=== PATIENT | female | born 1945 | race Caucasian/White ===

== ENCOUNTER 2018-10-18 19:51 | Inpatient (IN) | payer MEDICARE, OTHER, SELFPAY ==
[2018-10-17 11:35] VITALS: BMI 25.4
[2018-10-18] VITALS (7 sets, daily range): BP systolic 144–162; BP diastolic 74–97; PULSE 79–110; RESP 16–21; TEMP 36.4–37.1; O2SAT 97–99; BMI 25.0; BMI 24.9
--- NOTE | 2018-10-18 20:19 | EKG12_ITS ---
Test Reason : CELLULITIS Blood Pressure : / mmHG Vent. Rate : 095 BPM Atrial Rate : 095 BPM P-R Int : 154 ms QRS Dur : 074 ms QT Int : 360 ms P-R-T Axes : 059 -26 003 degrees QTc Int : 452 ms Sinus rhythm with Premature atrial complexes Nonspecific ST and T wave abnormality Abnormal ECG Confirmed by EMILY WOLFE, HANNAH ([id number]), assistant film editor DEMAR BOONE ([id number] on 10/22/2018 1:29:13 PM Referred By: JOSE RAMON Confirmed By:HANNAH DIAZ MD
[2018-10-18 20:54] LABS: Absolute Lymphocyte Count 2.22 X10^3/ul (0.83-4.51); Absolute Neutrophil Count 7.5 X10^3/uL (2.0-7.7); Basophil# 0.04 X10^3/uL; Basophil% 0.4 % (0-1); Eosinophil# 0.35 X10^3/uL; Eosinophils% 3.2 % (0-5); Hematocrit 39.5 % (37-47); Hemoglobin 13.3 g/dl (12.0-15.0); Lymphocyte # 2.22 X10^3/ul (4.0); Mean Corp Hgb Conc 33.7 g/gl (32-36); Mean Corpuscular Hgb 30.3 pg (27.0-32.0); Mean Platelet Vol. 11.9 fl (6.2-12.0); Monocyte# 0.97 X10^3/uL; Monocyte% 8.7 % (0-10); Neutrophil # 7.47 X10^3/uL (2.7-7.7); Neutrophil % 67.3 % (47-70); POSITIVE COUNT NO; POSITIVE DIFFERENTIAL NO; POSITIVE MORPHOLOGY NO; Platelet Count 214 K/mm3 (150-450); RBC Distribution Width CV 13.7 % (11.6-14.6); RBC Distribution Width SD 45.2 fl (35.1-43.9); Red Blood Count 4.39 M/mm3 (4.2-5.4); White Blood Count 11.1 K/mm3 (4.4-11.0)
[2018-10-18 21:01] LABS: International Normalized Ratio 1.2; Prothrombin Time (Protime)PT. 15.3 SECONDS (11.7-14.9)
[2018-10-18 21:02] LABS: Partial Thromboplast Time 55.3 Seconds (24.1-36.2)
[2018-10-18 21:05] LABS: ALB/GLOB Ratio 0.7 RATIO (0.9-2.4); AST(SGOT) 27 U/L (15-37); Alanine Aminotransfer ALT/SGPT 31 U/L (13-56); Albumin, Serum 3.4 g/dL (3.2-5.0); Alkaline Phosphatase 86 U/L (45-117); Anion Gap 7 (5-15); BUN 16 mg/dL (7-18); BUN/Creat Ratio 15.7 RATIO (10-20); Chloride 105 mmol/L (98-107); Creatinine, Serum 1.02 mg/dL (0.55-1.02); EST Glomerular Filtration Rate 56 mL/min (>60); Est Glom Filt Rate - Afr Amer 68 mL/min (>60); Estimated Creatinine Clearance 36.51 ml/min; Globulin 4.9 g/dL (2.2-4.2); Glucose 89 mg/dL (74-106); Potassium 3.6 mmol/L (3.5-5.1); Protein, Total 8.3 g/dL (6.4-8.2); Sodium Level 138 mmol/L (136-145)
[2018-10-18 21:13] LABS: Lactic Acid 1.6 mmol/L (0.4-2.0)
--- NOTE | 2018-10-18 21:16 | ED.RN ---
multiple attempts made to drawn second set of blood cultures. lab called to attempt. dr gonzalez informed. antibiotic at bedside. dallas noyola rn [id number]
--- NOTE | 2018-10-18 22:33 | HP.PCM_ITS ---
Problem List (1) Cellulitis, face Status: Acute (2) History of total right knee replacement Status: Chronic (3) Nonrheumatic mitral (valve) insufficiency Status: Chronic (4) Hyperlipidemia Status: Chronic (5) Paroxysmal atrial tachycardia Status: Chronic History of Present Illness Date of Admission: 10/18/18 Chief Complaint: skin infection on face The patient is a 73 year old female who presents to the ER with a skin infection covering her face. She has been fighting a cold for the past week but yesterday noticed an area of redness and inflammation on her nose and she went to an urgent care and was started on Levaquin. After two doses she has had progression of the redness and it now covers her entire face. She has no pain or discomfort with eye movements but she does feel puffiness. She has loss of appetite but denies chest pain, shortness of breath and has no nausea and or vomiting. She will be admitted to medical surgical floor and placed on double IV coverage for facial cellulitis. Past Medical History Past Medical History (Chronic Problems): Chronic Problems (Last Updated 10/17/18 @ 11:39 by Leah Culp) History of total right knee replacement (Chronic) Edema (Chronic) Nonrheumatic mitral (valve) insufficiency (Chronic) Hyperlipidemia (Chronic) Paroxysmal atrial tachycardia (Chronic) Medical History: Medical History (Last Updated 10/17/18 @ 11:39 by Leah Culp) Edema (Chronic) R60.9 Nonrheumatic mitral (valve) insufficiency (Chronic) I34.0 Hyperlipidemia (Chronic) E78.5 Paroxysmal atrial tachycardia (Chronic) I47.1 Heart disease I51.9 Hemorrhoids K64.9 Hypothyroidism E03.9 Right shoulder pain M25.511 Allergies Penicillins Allergy (Severe, Verified 10/18/18 19:52) Hives adhesive Allergy (Verified 10/18/18 19:52) Rash ampicillin Allergy (Verified 10/18/18 19:52) Rash diltiazem HCl [From Cardizem] Allergy (Verified 10/18/18 19:52) Hives morphine Adverse Reaction (Verified 10/18/18 19:52) Other Home Medications: Ambulatory Orders Medication Instructions Recorded Aspirin [Aspirin, Baby] 81 mg PO DAILY@0800 05/02/14 Calcium Carbonate/Vitamin D3 1 ea PO SUTUTHSA 07/01/14 [Calcium 600 + Vit D3 Tablet] Levothyroxine [Synthroid] 50 mcg PO DAILY 05/02/14 Metoprolol Tartrate 25 mg PO BID 05/02/14 Multivitamins,Therapeutic 1 tab PO DAILY 05/02/14 [Multivitamin] [place]-3 Fatty Acids/Fish Oil 1 ea PO DAILY 05/02/14 [[place] 3 Fish Oil Softgel] cholecalciferol (vitamin D3) 400 400 unit PO QDAY 11/01/17 unit capsule levofloxacin 500 mg tablet 500 mg PO DAILY #10 tab 10/17/18 Melatonin 5 mg PO QHS 10/18/18 Surgical History: Surgical History (Last Updated 10/17/18 @ 11:39 by Leah Culp) History of total right knee replacement (Chronic) Z96.651 History of appendectomy Z90.49 Smoking Status: Never smoker - *Family History Maternal Family History: Family History (Last Reviewed 10/17/18 @ 11:37 by Leah Culp) Father Hypertension Myocardial infarction Pacemaker Cardiac arrhythmia Mother Alzheimer's dementia Brother Hypertension Pulmonary hypertension ALS (amyotrophic lateral sclerosis) Sister Hypertension Hyperlipidemia Pulmonary embolism History Items: No pertinent history Review of Systems Constitutional: Reports: Fever. Denies: Chills, Weight Change HEENT: Denies: Head Aches, Sinus Congestion, Sinus Drainage Cardiovascular: Denies: Chest Pain, Palpitations Respiratory: Denies: Cough, Shortness of breath at rest, Sputum production Gastrointestinal: Denies: Abdominal Pain, Nausea, Vomiting Genitourinary: Denies: Dysuria Musculoskeletal: Denies: Joint Pain, Joint Tenderness Skin: Reports: Wounds. Denies: Rash Neurological: Denies: Numbness, Tingling, Focal weakness Psychiatric: Denies: Anxiety, Depression, Homicidal Ideations, Suicidal Ideations Hematologic/ Lymphatic: Denies: Easy Bruising, Easy Bleeding VTE Information - Inpt Only VTE Present on Admission: No VTE Mechan Device Prophylaxis: SCD's VTE Pharm Prophylaxis ordered?: No Patient Problems: Active and Suspected Problems (Last Updated 10/17/18 @ 11:39 by Leah Culp) Cellulitis, face (Acute) - Physical Exam General: Alert, Oriented x3, Cooperative HEENT: Atraumatic, PERRLA, EOMI, Normocephalic Neck: Supple, Negative Carotid Bruits Lungs: Clear to auscultation, Normal air movement Cardiovascular: Regular rate, Normal S1, Normal S2, No murmurs Abdomen: Bowel Sounds Present, Soft, Non Tender Extremities: No edema, Capillary Refill Less than 3 Seconds Skin: - - erthema and warmth covering entire face , there is a 1cm area of denuded skin on bridge of nose and appears to be original source of infection Musculoskeletal: No Tenderness to Palpation of Joints or Extremities Neurological: Cranial nerves II-XII grossly intact Psych/Mental Status: Normal Affect, Appropriate Vital Signs Temp Pulse Resp BP Pulse Ox 98.0 F 79 16 144/92 H 98 10/18/18 22:24 10/18/18 22:24 10/18/18 22:24 10/18/18 22:24 10/18/18 22:24 Oxygen Delivery Method Room Air Weight: 134 lb 14.766 oz Body Mass Index (BMI) 25.0 Laboratory Tests Past 24 Hrs 10/18/18 10/18/18 10/18/18 20:40 20:40 20:40 WBC 11.1 H RBC 4.39 Hgb 13.3 Hct 39.5 MCV 90.0 MCH 30.3 MCHC 33.7 RDW 13.7 RDW Differential 45.2 H Plt Count 214 MPV 11.9 Immature Gran % (Auto) 0.400 Neut % (Auto) 67.3 Lymph % (Auto) 20.0 [place] % (Auto) 8.7 Eos % (Auto) 3.2 Baso % (Auto) 0.4 Absolute Neuts (auto) 7.5 Absolute Lymphs (auto) 2.22 Total Counted Not Reportable PT 15.3 H INR 1.2 APTT 55.3 H Sodium 138 Potassium 3.6 Chloride 105 Carbon Dioxide 26.0 Anion Gap 7 BUN 16 Creatinine 1.02 Estim Creat Clear Calc 36.51 Est GFR (MDRD) Af Amer 68 Est GFR (MDRD) Non-Af 56 L BUN/Creatinine Ratio 15.7 Glucose 89 Lactic Acid Calcium 9.0 Total Bilirubin 0.40 AST 27 ALT 31 Alkaline Phosphatase 86 Total Protein 8.3 H Albumin 3.4 Globulin 4.9 H Albumin/Globulin Ratio 0.7 L 10/18/18 20:40 WBC RBC Hgb Hct MCV MCH MCHC RDW RDW Differential Plt Count MPV Immature Gran % (Auto) Neut % (Auto) Lymph % (Auto) [place] % (Auto) Eos % (Auto) Baso % (Auto) Absolute Neuts (auto) Absolute Lymphs (auto) Total Counted PT INR APTT Sodium Potassium Chloride Carbon Dioxide Anion Gap BUN Creatinine Estim Creat Clear Calc Est GFR (MDRD) Af Amer Est GFR (MDRD) Non-Af BUN/Creatinine Ratio Glucose Lactic Acid 1.6 Calcium Total Bilirubin AST ALT Alkaline Phosphatase Total Protein Albumin Globulin Albumin/Globulin Ratio Assessment/Plan All Active Problems (Last Updated 10/17/18 @ 11:39 by Leah Culp) Cellulitis, face (Acute) Chronic Problems (Last Updated 10/17/18 @ 11:39 by Leah Culp) History of total right knee replacement (Chronic) Edema (Chronic) Nonrheumatic mitral (valve) insufficiency (Chronic) Hyperlipidemia (Chronic) Paroxysmal atrial tachycardia (Chronic) Plan 1. Facial Cellulitis- initiate IV therapy with clindamycin and Rocephin. Repeat CBC , bmp in am. IV normal saline at 75cc/hour. Blood cultures pending. If progresses then get facial CT scan. 2. Hyperlipidemia- cont home medication 3. DVT prophylaxis- SCDs Code Visit Inpatient E&M: 63197 Init Hosp L3
--- NOTE | 2018-10-18 22:35 | ED.VISSUMM ---
- ER Visit Summary Date of Service: 10/18/18 Chief Complaint: Facial cellulitis History of Present Illness: The patient is a 73 F presenting for evaluation secondary to facial cellulitis. Patient reports that over the course of the last 2-3 days she is in development of redness and swelling in her face. She reports that it started with some sinusitis that is been going on for a week or so. She had giving herself xnrs-qrr-[id number] remedies for this. Patient reports that over the weekend she developed a fever of 102 and facial swelling. She was seen yesterday at the urgent care, and was diagnosed as having facial cellulitis and was placed on Levaquin. Patient states that despite antibiotics she has gotten worse. Physical Examination: Vital signs within normal limits. Well-nourished female no acute distress. Facial exam shows facial cellulitis that is diffuse over the entirety of the face. There appear to be some pustules on the patient's nose with some clearish yellow drainage. PRL, EOMI without any evidence of painful extraocular motion. Remainder of physical otherwise unremarkable. Test Results: CBC shows leukocytosis of 11, chemistry unremarkable, cultures pending, lactic acid negative. EKG shows sinus rate 95 occasional PACs with nonspecific ST changes. Emergency Department Course and Treatment: Patient presented secondary to worsening facial cellulitis. She does not have any evidence of septal cellulitis. Sepsis workup was obtained, was found to be grossly unremarkable. Patient will be started on clindamycin and Rocephin and admitted to the hospital for failed outpatient treatment Disposition: Admission Impression: 1. Facial cellulitis 2. Failed outpatient treatment This note was generated with [employer] dictation software. It may contain incorrect words, spelling, and punctuation that were not noted in review of the chart prior to signing ED Disposition - Plan for ED Patient: Chief Complaint: Cellulitis Referrals: Ajith Pabon MD [Primary Care Provider] -
--- NOTE | 2018-10-18 22:40 | ED.DCSUM_ITS ---
- ER Visit Summary Date of Service: 10/18/18 Chief Complaint: Facial cellulitis History of Present Illness: The patient is a 73 F presenting for evaluation secondary to facial cellulitis. Patient reports that over the course of the last 2-3 days she is in development of redness and swelling in her face. She reports that it started with some sinusitis that is been going on for a week or so. She had giving herself oajl-fmt-[id number] remedies for this. Patient reports that over the weekend she developed a fever of 102 and facial swelling. She was seen yesterday at the urgent care, and was diagnosed as having facial cellulitis and was placed on Levaquin. Patient states that despite antibiotics she has gotten worse. Physical Examination: Vital signs within normal limits. Well-nourished female no acute distress. Facial exam shows facial cellulitis that is diffuse over the entirety of the face. There appear to be some pustules on the patient's nose with some clearish yellow drainage. PRL, EOMI without any evidence of painful extraocular motion. Remainder of physical otherwise unremarkable. Test Results: CBC shows leukocytosis of 11, chemistry unremarkable, cultures pending, lactic acid negative. EKG shows sinus rate 95 occasional PACs with n onspecific ST changes. Emergency Department Course and Treatment: Patient presented secondary to worsening facial cellulitis. She does not have any evidence of septal cellulitis. Sepsis workup was obtained, was found to be grossly unremarkable. Patient will be started on clindamycin and Rocephin and admitted to the hospital for failed outpatient treatment Disposition: Admission Impression: 1. Facial cellulitis 2. Failed outpatient treatment This note was generated with [employer] dictation software. It may contain incorrect words, spelling, and punctuation that were not noted in review of the chart prior to signing ED Disposition - Plan for ED Patient: Chief Complaint: Cellulitis Referrals: Ajith Pabon MD [Primary Care Provider] -
--- NOTE | 2018-10-18 22:59 | ED.RN ---
PER DR FAUSTINO PEARL FOR MED SURG STANDARD
[2018-10-18] MEDS: Ceftriaxone 1 GM/50 ML BAG IV (23:00)
[2018-10-19] VITALS (7 sets, daily range): BP systolic 118–148; BP diastolic 66–87; PULSE 72–82; RESP 14–16; TEMP 36.6–37.5; O2SAT 97–100
--- NOTE | 2018-10-19 00:14 | NURSING ---
Per Gerald in pharmacy, ok to hang Cleocin around midnight even though dose was given in ER around 2129.
[2018-10-19] MEDS: Levothyroxine 50 MCG Tablet PO (05:52)
[2018-10-19 06:12] LABS: Hematocrit 39.4 % (37-47); Mean Corpuscular Hgb 30.1 pg (27.0-32.0); Mean Corpuscular Volume 91.2 fL (81-99); Mean Platelet Vol. 12.2 fl (6.2-12.0); Platelet Count 208 K/mm3 (150-450); RBC Distribution Width CV 13.8 % (11.6-14.6); RBC Distribution Width SD 45.4 fl (35.1-43.9); Red Blood Count 4.32 M/mm3 (4.2-5.4); White Blood Count 9.6 K/mm3 (4.4-11.0)
[2018-10-19 06:13] LABS: Scan Indicated on CBC? Y/N NO
[2018-10-19 06:28] LABS: Anion Gap 10 (5-15); BUN 12 mg/dL (7-18); BUN/Creat Ratio 13.5 RATIO (10-20); Calcium,Total 8.6 mg/dL (8.5-10.1); Chloride 109 mmol/L (98-107); Creatinine, Serum 0.89 mg/dL (0.55-1.02); EST Glomerular Filtration Rate 66 mL/min (>60); Est Glom Filt Rate - Afr Amer 80 mL/min (>60); Estimated Creatinine Clearance 41.85 ml/min; Glucose 86 mg/dL (74-106); Potassium 3.8 mmol/L (3.5-5.1); Sodium Level 140 mmol/L (136-145)
[2018-10-19 06:40] LABS: Bedside Glucose 95 mg/dL (70-110)
--- NOTE | 2018-10-19 07:16 | PCM.PROGNOTE ---
Patient Problems: Active and Suspected Problems (Last Updated 10/17/18 @ 11:39 by Leah Culp) Cellulitis, face (Acute) Subjective: Ms Melchor is a 73 YO F who presented to the ED at [facility] on 10/18/2018 complaining of an infection on her face that was not better after 2 doses of Levaquin. Thursday she noticed that her eyes were swollen and she had redness of the forehead and around the eyes. She was seen at the [facility] and placed on Levaquin and was told if after 2 doses she was no better to go to the emergency room. She took 2 doses of Levaquin at home and noticed progression of the redness that now involved the entire face. entire face. VS at presentation to the ED were temp 97.6, heart rate 99, blood pressure 147/97, respiratory rate 18 and she was 99% saturated on room air. White blood cell count was increased at 11.1 with an unremarkable differential. Hemoglobin was 13.3 and the platelets were within normal limits. Eosinophils were within normal limits. Electrolytes were within normal limits and the BUN was 12 with a creatinine of 0.89. Blood cultures were sent and also a swab from the abscess on her nose. She was admitted to the hospital and placed on ceftriaxone and clindamycin pending cultures. T-max is 99.5 ?F Vital signs are stable and she has mild hypertension. White blood cell count today is 9.6. The remainder of the lab is within normal limits. She and her both state that the redness and the swelling are better today. She is fatigued and has decreased appetite. Her nose is congested. She denies any cough. She has no rash anywhere else on her body. - Physical Exam General: Alert, Oriented x3, Cooperative, No apparent distress, - - She is sleepy from the Benadryl arouses easily HEENT: Atraumatic, PERRLA, EOMI, Normocephalic, - - He has considerable amount of periorbital edema and wrinkling of the skin has started beneath her eyelids. She is starting to have desquamation of the skin around her eyes and nose. The erythema involves most of the face with sparing of the top part of the forehead and in the preauricular area. There is a pustule on the end of her nose which is starting to crust. Oral: Dry Mucosa Neck: Supple, No JVD, No Nuchal Rigidity, - - + asnterior cervical nodes Lungs: Clear to auscultation, Normal air movement, No rhonchi, No wheeze, No rales Cardiovascular: Regular rate, Regular Rhythm, Normal S1, Normal S2, No murmurs, No Gallop Abdomen: Bowel Sounds Present, Soft, Non Tender Extremities: No clubbing, No cyanosis, No edema Skin: - - pustule on the end of the nose and erythema, macular, of the face only Musculoskeletal: No Muscle Wasting Lymphatic: Cervical Adenopathy Neurological: Cranial nerves II-XII grossly intact, Neuro grossly intact Psych/Mental Status: Normal Affect, Appropriate Vital Signs Temp Pulse Resp BP Pulse Ox 98.6 F 76 14 148/79 H 99 10/19/18 04:05 10/19/18 04:05 10/19/18 04:05 10/19/18 04:05 10/19/18 04:05 Oxygen Delivery Method Room Air Weight: 134 lb 0.657 oz Body Mass Index (BMI) 24.9 Intake and Output for Last 24 Hours 10/17/18 10/18/18 10/19/18 23:59 23:59 23:59 Intake Total 1488 / 1488 Balance 1488 / 1488 Laboratory Tests Past 24 Hrs 10/18/18 10/18/18 10/18/18 20:40 20:40 20:40 WBC 11.1 H RBC 4.39 Hgb 13.3 Hct 39.5 MCV 90.0 MCH 30.3 MCHC 33.7 RDW 13.7 RDW Differential 45.2 H Plt Count 214 MPV 11.9 Immature Gran % (Auto) 0.400 Neut % (Auto) 67.3 Lymph % (Auto) 20.0 [place] % (Auto) 8.7 Eos % (Auto) 3.2 Baso % (Auto) 0.4 Absolute Neuts (auto) 7.5 Absolute Lymphs (auto) 2.22 Total Counted Not Reportable PT 15.3 H INR 1.2 APTT 55.3 H Sodium 138 Potassium 3.6 Chloride 105 Carbon Dioxide 26.0 Anion Gap 7 BUN 16 Creatinine 1.02 Estim Creat Clear Calc 36.51 Est GFR (MDRD) Af Amer 68 Est GFR (MDRD) Non-Af 56 L BUN/Creatinine Ratio 15.7 Glucose 89 Lactic Acid Calcium 9.0 Total Bilirubin 0.40 AST 27 ALT 31 Alkaline Phosphatase 86 Total Protein 8.3 H Albumin 3.4 Globulin 4.9 H Albumin/Globulin Ratio 0.7 L 10/18/18 10/19/18 10/19/18 20:40 05:30 05:30 WBC 9.6 RBC 4.32 Hgb 13.0 Hct 39.4 MCV 91.2 MCH 30.1 MCHC 33.0 RDW 13.8 RDW Differential 45.4 H Plt Count 208 MPV 12.2 H Immature Gran % (Auto) Neut % (Auto) Lymph % (Auto) [place] % (Auto) Eos % (Auto) Baso % (Auto) Absolute Neuts (auto) Absolute Lymphs (auto) Total Counted PT INR APTT Sodium 140 Potassium 3.8 Chloride 109 H Carbon Dioxide 21.0 Anion Gap 10 BUN 12 Creatinine 0.89 Estim Creat Clear Calc 41.85 Est GFR (MDRD) Af Amer 80 Est GFR (MDRD) Non-Af 66 BUN/Creatinine Ratio 13.5 Glucose 86 Lactic Acid 1.6 Calcium 8.6 Total Bilirubin AST ALT Alkaline Phosphatase Total Protein Albumin Globulin Albumin/Globulin Ratio POC Glucose 10/19/18 06:37 POC Glucose 95 Medical Necessity - Tobacco Use Smoking Status: Never smoker Assessment/Plan All Active Problems (Last Updated 10/17/18 @ 11:39 by Leah Culp) Cellulitis, face (Acute) Impressions 1. Facial cellulitis with abscess on the nose open cultures pending. 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 I do suspect that Levaquin is effective because her temperatures resolved and her differential was normal at admission with a normal white blood cell count today. The redness and swelling have improved and this is too quick for the current antibiotics to have afforded this improvement 2. Mitral regurgitation-nonrheumatic 3. Hyperlipidemia 4. History of PAT 5. Hypothyroidism 6. GERD Continue current antibiotics MRSA swab of the nose Await the results of the culture -3+ gram-positive rods and 1+ gram-positive cocci on the Gram stain Pepcid for GERD Atrovent nasal spray to help with nasal congestion Eucerin to the areas of desquamation on the face twice daily Code Visit Inpatient E&M: 14402 Subs Hosp L2
[2018-10-19] MEDS: Multivitamins,Therapeutic Tablet 1 TABLET PO (08:09)
[2018-10-19] MEDS: Aspirin 81 MG TAB.CHEW PO (08:09)
[2018-10-19] MEDS: DiphenhydrAMINE 25 MG Capsule PO ×3 (08:09→23:31)
[2018-10-19] MEDS: 0.9% Normal Saline 1,000 ML 75 ML IV ×2 (08:22→20:48)
[2018-10-19] MEDS: Calcium Carb/Vitamin D 1 TABLET Tablet PO (09:08)
[2018-10-19] MEDS: Omega-3 Acid Ethyl Esters 1 GM Capsule PO (09:08)
[2018-10-19] MEDS: Metoprolol Tartrate 25 MG Tablet PO ×2 (09:08→23:31)
--- NOTE | 2018-10-19 10:30 | CASEMGMT ---
RN PRAMOD Face to Face with patient for initial transition planning/care coordination assessment. RN CM introduced self and role at [facility]. Patient lying in bed, alert and oriented, at bedside. Patient willing to participate in assessment and is able to answer all questions appropriately. Care providers, pharmacy, and demographics verified. Patient wishes to discharge home, denies need for home health at this time. Patient states she has no further needs or concerns at this time. CM to follow for discharge planning needs that may arise. PCP: Ajiht Pabon Specialists: Ary professional caster [facility] Insurance: [employer] Prescription Benefit: Yes Living Will/HPOA: Yes, Fab Melchor LNOK: Living Arrangements: Patient lives with in 1 story home, independent at home. Transportation: Self/Fab DME/HHC: Patient has grab bar in bathroom. Denied further DME or HHC Disposition Plan: Patient to discharge home with family support and follow-up plans in place. Krystyna SULLIVAN, RN, CM
[2018-10-19] MEDS: Ipratropium Bromide 0.06% NASAL SPRAY 2 SPRAY NASAL ×2 (14:45→23:31)
--- NOTE | 2018-10-19 16:32 | CHAPLAIN ---
Type of Pastoral Visit _x__ Initial Visit ___ Follow-up Visit ___ On-call Visit ___ General Patient Visit ___ Spiritual Assessment ___ Family Conference ___ Bereavement ___ Rapid Response ___ Code Blue ___ Other (describe below) Pastoral Care Referral From _x__ Patient ___ Family ___ Nurse ___ Physician ___ Educational Technology Specialist ___ Pack Master ___ Other (describe below) Sacrament/Intervention _x__ Active listening ___ Anointing ___ Worship ___ Bereavement ___ Communion ___ Nancy exploration ___ ___ Life review _x__ Prayer ___ Reconciliation ___ Sacrament of Sick ___ Supportive presence ___ Wedding _x_ Other (describe below) Pastoral Comments made contact with patient's manager title as requested
[2018-10-19 16:58] LABS: M R Staph aureus DNA By PCR Negative (Negative); Probe Check PASS; Specimen Processing Control PASS
[2018-10-19] MEDS: Famotidine 20 MG Tablet PO (21:01)
[2018-10-19] MEDS: Ceftriaxone 1 GM/50 ML BAG IV (21:01)
[2018-10-19] MEDS: MELATONIN 10 MG TABLET 5 MG PO (23:30)
[2018-10-20] MEDS: Ipratropium Bromide 0.06% NASAL SPRAY 2 SPRAY NASAL (05:31)
[2018-10-20] MEDS: Levothyroxine 50 MCG Tablet PO (05:31)
[2018-10-20 05:39] VITALS: BP 138/80; PULSE 67; RESP 16; TEMP 36.6; O2SAT 98
[2018-10-20 08:12] VITALS: PULSE 67
[2018-10-20] MEDS: Famotidine 20 MG Tablet PO (08:12)
[2018-10-20] MEDS: Multivitamins,Therapeutic Tablet 1 TABLET PO (08:12)
[2018-10-20] MEDS: Omega-3 Acid Ethyl Esters 1 GM Capsule PO (08:12)
[2018-10-20] MEDS: Aspirin 81 MG TAB.CHEW PO (08:12)
[2018-10-20] MEDS: Metoprolol Tartrate 25 MG Tablet PO (08:12)
[2018-10-20] MEDS: Acetaminophen 325 MG Tablet 650 MG PO (11:16)
[2018-10-20 11:20] VITALS: BP 152/83; PULSE 61; RESP 18; TEMP 36.4; O2SAT 96
--- NOTE | 2018-10-20 14:24 | PCM.DC ---
- Discharge Diagnoses Current Active Problems: Current Active and Chronic Problems (Last Updated 10/17/18 @ 11:39 by Leah Culp) Cellulitis, face (Acute) You will use the following diet at home:: No restrictions Your food should be the consistency of: Regular Your liquids should be the consistency of: Regular/Thin Discharge Activity: Return to Normal Activity Call your doctor if you observe: Fever of 101 or Higher, - - Call your PCP if severe diarrhea ( > 5 stools a day), painful sores in the mouth, painful swallowing, rash or itching. Taking a probiotic such as Lactobacillus or Kefir can help with loose stools while taking antibiotics. Additional Instructions: Please call me at [phone] (cell number) tomorrow and I will discuss the results of the wound culture with you. Allergies/Adverse Reactions: Allergies Penicillins Allergy (Severe, Verified 10/18/18 19:52) Hives adhesive Allergy (Verified 10/18/18 19:52) Rash ampicillin Allergy (Verified 10/18/18 19:52) Rash diltiazem HCl [From Cardizem] Allergy (Verified 10/18/18 19:52) Hives morphine Adverse Reaction (Verified 10/18/18 23:26) hypotension Medications to take at Discharge Aspirin [Aspirin, Baby] 81 mg PO DAILY@0800 05/02/14 Calcium Carbonate/Vitamin D3 [Calcium 600-Vit D3 800 Tablet] 1 ea PO SUTUTHSA 05/02/14 Levothyroxine [Synthroid] 50 mcg PO DAILY 05/02/14 Metoprolol Tartrate 25 mg PO BID 05/02/14 Multivitamins,Therapeutic [Multivitamin] 1 tab PO DAILY 05/02/14 [place]-3 Fatty Acids/Fish Oil [[place] 3 Fish Oil Softgel] 1 ea PO DAILY 05/02/14 cholecalciferol (vitamin D3) 400 unit capsule 400 unit PO QODAY 11/01/17 levofloxacin 500 mg tablet 500 mg PO DAILY #10 tab 10/17/18 Melatonin 5 mg PO QHS 10/18/18 Acetaminophen [Tylenol Tablet] 650 mg PO Q4H PRN PRN tablet 10/20/18 Mineral Oil/Petrolatum,White [Eucerin] 1 applic TOPICAL BID jar 10/20/18 Primary Care Physician: Ajith Pabon MD [Primary Care Provider] - Please follow up with your Primary Care Physician in: 5-7 days Test Results: Test results from this visit will be discussed in further detail at your follow-up appointment, if applicable. Proposed Discharge Date: 10/20/18
--- NOTE | 2018-10-20 14:28 | DCINST_ITS ---
- Discharge Diagnoses Current Active Problems: Current Active and Chronic Problems (Last Updated 10/17/18 @ 11:39 by Leah Culp) Cellulitis, face (Acute) You will use the following diet at home:: No restrictions Your food should be the consistency of: Regular Your liquids should be the consistency of: Regular/Thin Discharge Activity: Return to Normal Activity Call your doctor if you observe: Fever of 101 or Higher, - - Call your PCP if severe diarrhea ( > 5 stools a day), painful sores in the mouth, painful swallowing, rash or itching. Taking a probiotic such as Lactobacillus or Kefir can help with loose stools while taking antibiotics. Additional Instructions: Please call me at [phone] (cell number) tomorrow and I will discuss the results of the wound culture with you. Allergies/Adverse Reactions: Allergies Penicillins Allergy (Severe, Verified 10/18/18 19:52) Hives adhesive Allergy (Verified 10/18/18 19:52) Rash ampicillin Allergy (Verified 10/18/18 19:52) Rash diltiazem HCl [From Cardizem] Allergy (Verified 10/18/18 19:52) Hives morphine Adverse Reaction (Verified 10/18/18 23:26) hypotension Medications to take at Discharge Aspirin [Aspirin, Baby] 81 mg PO DAILY@0800 05/02/14 Calcium Carbonate/Vitamin D3 [Calcium 600-Vit D3 800 Tablet] 1 ea PO SUTUTHSA 05/02/14 Levothyroxine [Synthroid] 50 mcg PO DAILY 05/02/14 Metoprolol Tartrate 25 mg PO BID 05/02/14 Multivitamins,Therapeutic [Multivitamin] 1 tab PO DAILY 05/02/14 [place]-3 Fatty Acids/Fish Oil [[place] 3 Fish Oil Softgel] 1 ea PO DAILY 05/02/14 cholecalciferol (vitamin D3) 400 unit capsule 400 unit PO QODAY 11/01/17 levofloxacin 500 mg tablet 500 mg PO DAILY #10 tab 10/17/18 Melatonin 5 mg PO QHS 10/18/18 Acetaminophen [Tylenol Tablet] 650 mg PO Q4H PRN PRN tablet 10/20/18 Mineral Oil/Petrolatum,White [Eucerin] 1 applic TOPICAL BID jar 10/20/18 Primary Care Physician: Ajith Pabon MD [Primary Care Provider] - Please follow up with your Primary Care Physician in: 5-7 days Test Results: Test results from this visit will be discussed in further detail at your follow- up appointment, if applicable. Proposed Discharge Date: 10/20/18
--- NOTE | 2018-10-20 14:28 | PCM.DC.SUM ---
Discharge Date and Diagnosis Date of Admission: 10/18/18 Date of Discharge: 10/20/18 - Primary Discharge Diagnosis Active and Suspected Problems (Last Updated 10/17/18 @ 11:39 by Leah Culp) Cellulitis and abscess of the face (Acute) - Secondary Discharge Diagnosis Chronic Problems (Last Updated 10/17/18 @ 11:39 by Leah Culp) History of total right knee replacement (Chronic) Nonrheumatic mitral (valve) insufficiency (Chronic) Hyperlipidemia (Chronic) Paroxysmal atrial tachycardia (Chronic) GERD Hypothyroidism Hospital Course and Treatment Imaging Results: Laboratory Results - last 24 hr 10/19/18 14:30 MRSA (PCR) Negative none Operations: None Procedures: None Summary of Care Provided: Ms Melchor is a 73 YO F who presented to the ED at [facility] on 10/18/2018 complaining of an infection on her face that was not better after 2 doses of Levaquin that was prescribed to her at the [facility]. VS at presentation to the ED were temp 97.6, heart rate 99, blood pressure 147/97, respiratory rate 18 and she was 99% saturated on room air. White blood cell count was increased at 11.1 with an unremarkable differential. Hemoglobin was 13.3 and the platelets were within normal limits. Eosinophils were within normal limits. Electrolytes were within normal limits and the BUN was 12 with a creatinine of 0.89. Blood cultures were sent and also a swab from the abscess on her nose. She was admitted to the hospital and placed on ceftriaxone and clindamycin pending cultures. The following day there was significant decrease in the swelling and edema per the patient and her .......This was likely due to the Levaquin and not the Rocephin and Clindamycin she received less than 24 hours prior to my exam. She had continued improvement. Culture of the discharge from a small abscess on the nose grew Staphylococcus epidermidis and Staphylococcus capitis and both were susceptible to fluoroquinolones. Blood cultures had no growth after 5 days. She was discharged home and instructed to finish the Levaquin that she already had at home. She was instructed to follow-up with Dr. Pabon in 5-7 days. I also recommend she take probiotic for the next 7-10 days. PHYSICAL EXAM: GENERAL: alert, oriented X 3, Cooperative, NAD ORAL: moist mucosa, no mucosal lesions NECK: No JVD, supple, trachea midline LUNGS: CTA, symmetric chest expansion HEART: RRR, Normal S1 and S2, no rub, no gallop ABDOMEN: soft, NT, ND, BS present, no guarding with palpation EXTREMITIES: no edema, no cyanosis, no calf tenderness SKIN: Erythema limited to the immediate periorbital area and mild erythema over the tip of the nose. The desquamation that has been present the preceding day was much improved with Eucerin intensive repair twice daily. The previous abscess on the nose was dry with a hdez crust. She was able to open both eyes without a problem NEUROLOGIC: no focal neurologic deficits PSYCH: appropriate, normal affect, pleasant This note was generated with [employer] dictation software. It may contain incorrect words, spelling, and punctuation that were not noted in checking the note before signing. - Physical Exam Vital Signs Temp Pulse Resp BP Pulse Ox 97.6 F L 61 18 152/83 H 96 10/20/18 11:20 10/20/18 11:20 10/20/18 11:20 10/20/18 11:20 10/20/18 11:20 Oxygen Delivery Method Room Air Weight: 134 lb 0.657 oz Body Mass Index (BMI) 24.9 Intake and Output for Last 24 Hours 10/18/18 10/19/18 10/20/18 23:59 23:59 23:59 Intake Total 3314 / 3314 1565 / 1565 Balance 3314 / 3314 1565 / 1565 Microbiology Past 72 Hours 10/18/18 21:38 Gram Stain - Final Wound Abcess - Nose Wound Culture - Preliminary Gram positive organism Laboratory Tests Past 24 Hrs 10/19/18 14:30 MRSA (PCR) Negative Discharge Activity: Return to Normal Activity Call your doctor if you observe: Fever of 101 or Higher, - - Call your PCP if severe diarrhea ( > 5 stools a day), painful sores in the mouth, painful swallowing, rash or itching. Taking a probiotic such as Lactobacillus or Kefir can help with loose stools while taking antibiotics. Home Medications: Medications to take at Discharge Aspirin [Aspirin, Baby] 81 mg PO DAILY@0800 05/02/14 Calcium Carbonate/Vitamin D3 [Calcium 600-Vit D3 800 Tablet] 1 ea PO SUTUTHSA 05/02/14 Levothyroxine [Synthroid] 50 mcg PO DAILY 05/02/14 Metoprolol Tartrate 25 mg PO BID 05/02/14 Multivitamins,Therapeutic [Multivitamin] 1 tab PO DAILY 05/02/14 [place]-3 Fatty Acids/Fish Oil [[place] 3 Fish Oil Softgel] 1 ea PO DAILY 05/02/14 cholecalciferol (vitamin D3) 400 unit capsule 400 unit PO QODAY 11/01/17 levofloxacin 500 mg tablet 500 mg PO DAILY #10 tab 10/17/18 Melatonin 5 mg PO QHS 10/18/18 Acetaminophen [Tylenol Tablet] 650 mg PO Q4H PRN PRN tablet 10/20/18 Mineral Oil/Petrolatum,White [Eucerin] 1 applic TOPICAL BID jar 10/20/18 Primary Care Physician: Ajith Pabon MD [Primary Care Provider] - Please follow up with your Primary Care Physician in: 5-7 days Disposition: Home Minutes spent on discharge:: 30 Patient Condition:: Good Medical Necessity - Tobacco Use Smoking Status: Never smoker Meaningful Use Info Meaningful Use Diagnoses (Choose all that apply): None applicable Code Visit Inpatient E&M: 17232 Disch Hosp
--- OUTSIDE RECORDS SUMMARY | 2019-01-20 10:18 | XMS RPT_ITS ---
:1945 Author Organization OHIP Care Team Providers Name Role Phone Radha Siddiqi Attending Unavailable Ajith Boone Referring Unavailable Ajith Boone Primary Care Unavailable Nestor Pearson Admitting Unavailable Semenjani, Monica Attending Unavailable Nestor Pearson Attending Unavailable Ajith Boone Primary Care Unavailable Nestor Pearson Admitting Unavailable Semenjani, Monica Attending Unavailable Ajith Boone Primary Care Unavailable Semenjani, Monica Consulting Unavailable Nestor Pearson Admitting Unavailable Semenjani, Monica Attending Unavailable Ajith Boone Primary Care Unavailable Semenjani, Monica Consulting Unavailable Ary, Luca Attending Unavailable Ajith Boone Referring Unavailable PROBLEMS PROBLEMS DATE TYPE CONDITION / CODE ATTENDING STATUS SOURCE 11/09/2018 Unknown I47.1 - Ary, Luca Active [facility] tachycardia / Hospital I47.1(ICD-10) Repository 11/09/2018 Unknown I34.0 - Nonrheumatic Ary, [place] Active [facility] mitral (valve) Community insufficiency / Hospital I34.0(ICD-10) Repository 10/28/2018 Unknown L03.211 - Cellulitis Sementi, Active [facility] L03.211(ICD-10) Hospital Repository PROCEDURES PROCEDURES No Procedure Records FoundRESULTS RESULTS CARDIOLOGY VISIT Observed: 11/09/2018 Status: F Source: ANAHI REPORT 10:16 AM [facility] HOSPITAL REPOSITORY [facility] [address] [place] [address] OFFICE VISIT Date of Service: 11/09/18 MR#: [id number] Acct: [id number] Name: BRADLEY MELCHOR Rep #: [id number] : 1945 Provider: Luca Mcallister MD Age/Sex: 73/F Location: [facility] Status: Signed HPI HPI Chief Complaint: Follow-up visit Details: BRADLEY MELCHOR, is a 73 F who presents to the office today for a follow-up visit. She is a lady with a history of hypertension equivocal mitral valve prolapse premature ventricular complexes who returns for follow-up visit. She tells me that she was recently admitted to the hospital with facial cellulitis and required antibiotics. She did not have any apparent source of the above. She has had no neck arm or jaw discomfort suggest angina no dizziness or diaphoresis no near syncope or syncope. She is been compliant with all her medications. Her physical exam today demonstrates clear lung milian regular rate and rhythm and no pedal edema. Blood pressure is under excellent control. Intake Vital Signs11/09/18 Height 5 ft 1 in 11/09/18 Weight: 134 lb 11/09/18 Body Mass Index (BMI) 25.3 11/09/18 Blood Pressure 122/70 H 11/09/18 Blood Pressure Location Lt brachial Intake Visit Reasons: 1 Y FU Sign Wirer Required: No Accompanied by: none Is patient in pain?: No Allergies Penicillins Allergy (Severe, Verified 11/09/18 10:00) Hives adhesive Allergy (Verified 11/09/18 10:00) Rash ampicillin Allergy (Verified 11/09/18 10:00) Rash diltiazem HCl [From Cardizem] Allergy (Verified 11/09/18 10:00) Hives morphine Adverse Reaction (Verified 11/09/18 10:00) hypotension Medications Aspirin [Aspirin, Baby] 81 mg PO DAILY@0800 07/01/14 [History Confirmed 11/09/18] Calcium Carbonate/Vitamin D3 [Calcium 600-Vit D3 800 Tablet] 1 ea PO SUTUTHSA 05/02/14 [History Confirmed 11/09/18] Levothyroxine [Synthroid] 50 mcg PO DAILY 05/02/14 [History Confirmed 11/09/18] Metoprolol Tartrate 25 mg PO BID 05/02/14 [History Confirmed 11/09/18] Multivitamins,Therapeutic [Multivitamin] 1 tab PO DAILY 05/02/14 [History Confirmed 11/09/18] Miranda-3 Fatty Acids/Fish Oil [Miranda 3 Fish Oil Softgel] 1 ea PO DAILY 05/02/14 [History Confirmed 11/09/18] cholecalciferol (vitamin D3) 400 unit capsule 400 unit PO QODAY 11/01/17 [History Confirmed 11/09/18] Melatonin 5 mg PO QHS 10/18/18 [History Confirmed 11/09/18] Acetaminophen [Tylenol Tablet] 650 mg PO Q4H PRN PRN tab 10/20/18 [Rx Confirmed 11/09/18] PFSH Medical History Edema (Chronic) Nonrheumatic mitral (valve) insufficiency (Chronic) Hyperlipidemia (Chronic) Paroxysmal atrial tachycardia (Chronic) Heart disease (Acute) Hemorrhoids (Acute) Hypothyroidism (Acute) Right shoulder pain (Acute) Surgical History History of total right knee replacement (Chronic) History of appendectomy (Acute) Family History Father , at age 102 Hypertension Myocardial infarction Pacemaker Cardiac arrhythmia Mother , age 74 Alzheimer's dementia Brother Hypertension Pulmonary hypertension ALS (amyotrophic lateral sclerosis) Sister Hypertension Hyperlipidemia Pulmonary embolism Social History Smoking Status: Never smoker alcohol intake: never ROS Const Const: Negative for fatigue, weakness, night sweats, excessive sweating, frequent falls, headache(s) or daytime sleepiness Eyes Eyes: Negative for loss of peripheral vision, transient loss of vision, blind spots, double vision or blurry vision ENT ENT: Negative for headache(s), dizziness, balance problems, Nosebleed/epistaxis, tongue swelling or lip swelling Cardio Chest Pain: No Palpitations: No Edema: None Muscle aches with walking: None Resp Respiratory: Negative for SOB at rest, SOB orthopnea\SOB lying down, Cough, paroxysmal nocturnal dyspnea or SOB with activity GI GI: Negative nausea, vomiting, heartburn, black,tarry stools or bright, red blood in stools : Negative for hematuria Musc Musc: Negative for balance problems, muscle aches/ myalgia, muscle weakness or joint pain Skin Skin: Negative non-healing lesions, unusual bruising or rash Neuro Neuro: Negative for weakness, frequent falls, headache(s), double vision, dizziness, lightheadedness, orthostatic symptoms, blurry vision or lack of coordination Bal Hematologic/Lymphatic: Negative for easy bruising or easy bleeding Endo Endo: Negative for fatigue, excessive sweating, cold intolerance, heat intolerance, increased thirst/drinking or hair loss Psych Psych: Negative for anxiety or depression Allergy Allergy/Immunology: Negative for throat swelling, Negative for tongue swelling, Negative for hives, Negative for rash, Negative for lip swelling Cardiology Exam Const Appearance: cooperative, healthy appearing, well developed, well groomed and no acute distress Nutritional Appearance: well nourished and average body habitus Orientation: alert, awake and oriented x3 Head Head: normal to inspection, normocephalic and atraumatic Ears: hearing grossly normal bilaterally and external ears normal Nose: external nose normal, nasal mucous membranes and turbinates normal, nares normal, septum normal, no nasal discharge Face and Sinus: face symmetric Mouth: oral mucosae normal, tongue normal, oropharynx normal and moist mucous membranes Teeth and gingiva: dentition normal Throat: posterior oropharynx normal, tonsils normal and uvula midline Eyes General: appearance normal, both eyes and all related structures Eyelids: eyelids normal Conjunctivae: conjunctivae normal Pupils: PERRL, normal by confrontation and accommodation normal EOM: EOM intact bilaterally Neck Neck: normal visual inspection, trachea midline and no JVD JVD: +5 Carotids: normal carotid upstroke and bounding pulses Chest Chest inspection: normal inspection of the chest, symmetric chest movement and normal respiratory effort Auscultation: Bilateral: Clear to Auscultation Cardio Palpation: normal PMI Rate: regular rate Rhythm: regular rhythm Heart sounds: S1 normal, S2 normal and normal, physiologic split S2; negative rub, gallop or murmur GI GI: normal to inspection, soft, no hepatosplenomegaly and bowel sounds present Neuro General: alert, awake, oriented x3, no focal sensory deficit, gait normal and moves all extremities Skin Skin: no rashes or lesions noted Extremities Pulses: Normal: Right Femoral Pulse, Left Femoral Pulse, Right Dorsalis Pedis Pulse, Left Dorsalis Pedis Pulse, Right Posterior Tibial Pulse, Left Posterior Tibial Pulse, Right Radial Pulse, Left Radial Pulse Lower Extremity Edema: None: Bilateral Musculoskel Musculoskeletal: No joint tenderness Psych Psychological: normal affect Assessment AND Plan 1. Paroxysmal atrial tachycardia I47.1 Plan She does not appear to have had any recent episodes of these palpitations my recommendation is for us to continue observation without making any changes. She remains on the beta-dona which will be continued. 2. Nonrheumatic mitral (valve) insufficiency I34.0 Plan She has had a previous history of equivocal mitral valve prolapse. At this time she does not need antibiotic prophylaxis we will continue to follow her on a yearly basis. Her last echocardiogram had also demonstrated preserved pulmonary pressures. Thank you for allowing me to participate in the care of your patient. 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) Coding Level of Care Code Off vis,est,level 3 Diagnoses Paroxysmal atrial tachycardia I47.1 Nonrheumatic mitral (valve) insufficiency I34.0 Coding Level of Care Code Off vis,est,level 3 Diagnoses Paroxysmal atrial tachycardia I47.1 Nonrheumatic mitral (valve) insufficiency I34.0 Supplemental Info Supplemental Information Labs LDL Cholesterol 105 mg/dL (0-130) 10/14/17 HDL Cholesterol 50 mg/dL (40-) 10/14/17 Triglycerides 226 mg/dL (-199) H 10/14/17 VLDL Cholesterol 45 mg/dL (5-40) H 10/14/17 Diagnostics Electrocardiogram 10/18/18 Echocardiogram 10/22/15 Stress Test Nuclear Medicine 10/22/15 11/09/18 1016 <Electronically signed by Luca Mcallister MD> Date Luca Mcallister MD Cosigner Signature: Date (if applicable) CC: Ajith Boone MD DISCHARGE SUMMARY Observed: 10/28/2018 Status: F Source: ANAHI 1:03 PM [facility] REPOSITORY [facility] Medical Records Department [address] [place] [address] Discharge Summary 10/20/18 1428 MR#: [id number] Acct: [id number] Name: BRADLEY MELCHOR Rep #: [id number] : 1945 73 From: Jkae Ingram DO PCP: Ajith Boone MD Status: DIS IN Y Location: [facility] [id number] Discharge Date and Diagnosis Date of Admission: 10/18/18 Date of Discharge: 10/20/18 - Primary Discharge Diagnosis Active and Suspected Problems (Last Updated 10/17/18 @ 11:39 by Leah Culp) Cellulitis and abscess of the face (Acute) - Secondary Discharge Diagnosis Chronic Problems (Last Updated 10/17/18 @ 11:39 by Leah Culp) History of total right knee replacement (Chronic) Nonrheumatic mitral (valve) insufficiency (Chronic) Hyperlipidemia (Chronic) Paroxysmal atrial tachycardia (Chronic) GERD Hypothyroidism Hospital Course and Treatment Imaging Results: Laboratory Results - last 24 hr MRSA (PCR) Negative none Operations: None Procedures: None Summary of Care Provided: Ms Melchor is a 73 YO F who presented to the ED at [facility] on 10/18/2018 complaining of an infection on her face that was not better after 2 doses of Levaquin that was prescribed to her at the [facility]. VS at presentation to the ED were temp 97.6, heart rate 99, blood pressure 147/97, respiratory rate 18 and she was 99% saturated on room air. White blood cell count was increased at 11.1 with an unremarkable differential. Hemoglobin was 13.3 and the platelets were within normal limits. Eosinophils were within normal limits. Electrolytes were within normal limits and the BUN was 12 with a creatinine of 0.89. Blood cultures were sent and also a swab from the abscess on her nose. She was admitted to the hospital and placed on ceftriaxone and clindamycin pending cultures. The following day there was significant decrease in the swelling and edema per the patient and her .......This was likely due to the Levaquin and not the Rocephin and Clindamycin she received less than 24 hours prior to my exam. She had continued improvement. Culture of the discharge from a small abscess on the nose grew Staphylococcus epidermidis and Staphylococcus capitis and both were susceptible to fluoroquinolones. Blood cultures had no growth after 5 days. She was discharged home and instructed to finish the Levaquin that she already had at home. She was instructed to follow-up with Dr. Boone in 5-7 days. I also recommend she take probiotic for the next 7-10 days. PHYSICAL EXAM: GENERAL: alert, oriented X 3, Cooperative, NAD ORAL: moist mucosa, no mucosal lesions NECK: No JVD, supple, trachea midline LUNGS: CTA, symmetric chest expansion HEART: RRR, Normal S1 and S2, no rub, no gallop ABDOMEN: soft, NT, ND, BS present, no guarding with palpation EXTREMITIES: no edema, no cyanosis, no calf tenderness SKIN: Erythema limited to the immediate periorbital area and mild erythema over the tip of the nose. The desquamation that has been present the preceding day was much improved with Eucerin intensive repair twice daily. The previous abscess on the nose was dry with a hdez crust. She was able to open both eyes without a problem NEUROLOGIC: no focal neurologic deficits PSYCH: appropriate, normal affect, pleasant This note was generated with StepOne dictation software. It may contain incorrect words, spelling, and punctuation that were not noted in checking the note before signing. - Physical Exam Vital Signs Temp Pulse Resp BP Pulse Ox 97.6 F L 61 18 152/83 H 96 10/20/18 11:20 10/20/18 11:20 10/20/18 11:20 10/20/18 11:20 10/20/18 11:20 Oxygen Delivery Method Room Air Weight: 134 lb 0.657 oz Body Mass Index (BMI) 24.9 Intake and Output for Last 24 Hours Intake Total 3314 / 3314 1565 / 1565 Balance 3314 / 3314 1565 / 1565 Microbiology Past 72 Hours 10/18/18 21:38 Gram Stain - Final Wound Abcess - Nose Wound Culture - Preliminary Laboratory Tests Past 24 Hrs MRSA (PCR) Negative Discharge Activity: Return to Normal Activity Call your doctor if you observe: Fever of 101 or Higher, - - Call your PCP if severe diarrhea ( > 5 stools a day), painful sores in the mouth, painful swallowing, rash or itching. Taking a probiotic such as Lactobacillus or Kefir can help with loose stools while taking antibiotics. Home Medications: Medications to take at Discharge Aspirin [Aspirin, Baby] 81 mg PO DAILY@0800 05/02/14 Calcium Carbonate/Vitamin D3 [Calcium 600-Vit D3 800 Tablet] 1 ea PO SUTUTHSA 05/02/14 Levothyroxine [Synthroid] 50 mcg PO DAILY 05/02/14 Metoprolol Tartrate 25 mg PO BID 05/02/14 Multivitamins,Therapeutic [Multivitamin] 1 tab PO DAILY 05/02/14 Miranda-3 Fatty Acids/Fish Oil [Miranda 3 Fish Oil Softgel] 1 ea PO DAILY 05/02/14 cholecalciferol (vitamin D3) 400 unit capsule 400 unit PO QODAY 11/01/17 levofloxacin 500 mg tablet 500 mg PO DAILY #10 tab 10/17/18 Melatonin 5 mg PO QHS 10/18/18 Acetaminophen [Tylenol Tablet] 650 mg PO Q4H PRN PRN tablet 10/20/18 Mineral Oil/Petrolatum,White [Eucerin] 1 applic TOPICAL BID jar 10/20/18 Primary Care Physician: Ajith Boone MD [Primary Care Provider] - Please follow up with your Primary Care Physician in: 5-7 days Disposition: Home Minutes spent on discharge:: 30 Patient Condition:: Good Medical Necessity - Tobacco Use Smoking Status: Never smoker Meaningful Use Info Meaningful Use Diagnoses (Choose all that apply): None applicable Code Visit Inpatient E AND M: 78429 Disch Hosp 10/28/18 1303 <Electronically signed by Jake Ingram DO> Date Jake Ingram DO Cosigner Signature (if applicable): Date CC: Monica Ingram; Ajith Boone MD Signed 12 LEAD ELECTROCARDIOGRAM Observed: 10/22/2018 Status: F Source: ANAHI 1:29 PM [facility] HOSPITAL REPOSITORY [facility] Cardiovascular Services [address] [place] [address] 12 Lead EKG 10/18/182041 MR#: [id number] Acct: [id number] Name: BRADLEY MELCHOR Rep #: [id number] : 1945 73 From: Luca Mcallister MD Attending Dr: Monica Ingram Status: DIS IN Ordering Dr: Mikhail Taylor MD Date: 10/18/18 [place] [facility] [place] Sex: F C Admitted: 10/18/18 Test Reason : CELLULITIS Blood Pressure : / mmHG Vent. Rate : 095 BPM Atrial Rate : 095 BPM P-R Int : 154 ms QRS Dur : 074 ms QT Int : 360 ms P-R-T Axes : 059 -26 003 degrees QTc Int : 452 ms Sinus rhythm with Premature atrial complexes Nonspecific ST and T wave abnormality Abnormal ECG Confirmed by LUCA MCALLISTER MD ([id number]), digital editor DEMAR BOONE ([id number]) on 10/22/2018 1:29:13 PM Referred By: JOSE RAMON Confirmed By:LUCA MCALLISTER MD 10/22/18 1329 Date Luca Mcallister MD CC: Monica Ingram; Ajith Boone MD; Mikhail Taylor Signed DISCHARGE INSTRUCTION Observed: 10/20/2018 Status: F Source: ANAHI 2:28 PM [facility] HOSPITAL REPOSITORY [facility] Medical Records Department [address] [place] [address] Instructions for Home/Discharge Instructions 10/20/18 1424 MR#: [id number] Acct: [id number] Name: BRADLEY MELCHOR Rep #: [id number] : 1945 73 From: Jake Ingram DO PCP: Ajith Boone MD Status: ADM IN - Discharge Diagnoses Current Active Problems: Current Active and Chronic Problems (Last Updated 10/17/18 @ 11:39 by Leah N Cogar) Cellulitis, face (Acute) You will use the following diet at home:: No restrictions Your food should be the consistency of: Regular Your liquids should be the consistency of: Regular/Thin Discharge Activity: Return to Normal Activity Call your doctor if you observe: Fever of 101 or Higher, - - Call your PCP if severe diarrhea ( > 5 stools a day), painful sores in the mouth, painful swallowing, rash or itching. Taking a probiotic such as Lactobacillus or Kefir can help with loose stools while taking antibiotics. Additional Instructions: Please call me at [phone] (cell number) tomorrow and I will discuss the results of the wound culture with you. Allergies/Adverse Reactions: Allergies Penicillins Allergy (Severe, Verified 10/18/18 19:52) Hives adhesive Allergy (Verified 10/18/18 19:52) Rash ampicillin Allergy (Verified 10/18/18 19:52) Rash diltiazem HCl [From Cardizem] Allergy (Verified 10/18/18 19:52) Hives morphine Adverse Reaction (Verified 10/18/18 23:26) hypotension Medications to take at Discharge Aspirin [Aspirin, Baby] 81 mg PO DAILY@0800 05/02/14 Calcium Carbonate/Vitamin D3 [Calcium 600-Vit D3 800 Tablet] 1 ea PO SUTUTHSA 05/02/14 Levothyroxine [Synthroid] 50 mcg PO DAILY 05/02/14 Metoprolol Tartrate 25 mg PO BID 05/02/14 Multivitamins,Therapeutic [Multivitamin] 1 tab PO DAILY 05/02/14 Miranda-3 Fatty Acids/Fish Oil [Miranda 3 Fish Oil Softgel] 1 ea PO DAILY 05/02/14 cholecalciferol (vitamin D3) 400 unit capsule 400 unit PO QODAY 11/01/17 levofloxacin 500 mg tablet 500 mg PO DAILY #10 tab 10/17/18 Melatonin 5 mg PO QHS 10/18/18 Acetaminophen [Tylenol Tablet] 650 mg PO Q4H PRN PRN tablet 10/20/18 Mineral Oil/Petrolatum,White [Eucerin] 1 applic TOPICAL BID jar 10/20/18 Primary Care Physician: Ajith Boone MD [Primary Care Provider] - Please follow up with your Primary Care Physician in: 5-7 days Test Results: Test results from this visit will be discussed in further detail at your follow-up appointment, if applicable. Proposed Discharge Date: 10/20/18 10/20/18 1428 <Electronically signed by Jake Ingram DO> Date Jake Robyn Vickijani DO CC: Ajith Horne [employer] Collected: 10/19/2018 Status: F Source: ANAHI DNA BY PCR 2:30 PM [facility] REPOSITORY TYPE CODE TESTS RESULT OUT OF RANGE REFERENCE UNITS LAB L8200.1100 Negative Normal MRSA Negative RESULT Performed By: #### L8200.1000 #### [facility] [address] [facility] [place], [place], [address] BEDSIDE GLUCOSE Collected: 10/19/2018 Status: F Source: ANAHI 6:37 AM [facility] REPOSITORY TYPE CODE TESTS RESULT OUT OF RANGE REFERENCE UNITS LAB L501.080 70-110 mg/dL Normal BEDSIDE GLU 95 Result Comment: MANAGEMENT OF PATIENT CARE PER NURSING PROTOCOL Performed By: #### L501.080 #### [facility] Point of Care [address] [place] [address]. [place], [place] [address] CBC-COMPLETE BLOOD CNT Collected: 10/19/2018 Status: F Source: ANAHI NO DIFF 5:30 AM [facility] REPOSITORY TYPE CODE TESTS RESULT OUT OF RANGE REFERENCE UNITS LAB L100.1000 4.4-11.0 K/mm3 Normal WBC 9.6 LAB L100.1200 4.2-5.4 M/mm3 Normal RBC 4.32 LAB L100.1300 12.0-15.0 g/dl Normal HGB 13.0 LAB L100.1400 37-47 % Normal HCT 39.4 LAB L100.1500 81-99 fL Normal MCV 91.2 LAB L100.1600 27.0-32.0 pg Normal MCH 30.1 LAB L100.1700 32-36 g/gl Normal MCHC 33.0 LAB L100.1810 11.6-14.6 % Normal RDW CV 13.8 LAB L100.1820 35.1-43.9 fl High RDW SD 45.4 LAB L100.1900 150-450 K/mm3 Normal PLT 208 LAB L100.2000 6.2-12.0 fl High MPV 12.2 Performed By: #### L100.0500 #### [facility] [address] [place], [address] BASIC METABOLIC Collected: 10/19/2018 Status: F Source: LUBBOCK PROFILE (BMP) 5:30 AM [facility] REPOSITORY TYPE CODE TESTS RESULT OUT OF RANGE REFERENCE UNITS LAB L501.0100 74-106 mg/dL Normal GLU 86 Result Comment: Please note revised GLUCOSE reference range effective 2017. LAB L501.1000 7-18 mg/dL Normal BUN 12 LAB L501.1100 0.55-1.02 mg/dL Normal CREAT,SERUM 0.89 Result Comment: The validity of the calculated GFR AND GFRAA in patients over 70 years has not been determined. Clinical correlation is essential. LAB L501.1110 >60 mL/min Normal EST GFR 66 Result Comment: Non- GFR Calc LAB L501.1115 >60 mL/min Normal EST GFR - AA 80 Result Comment: GFR Calc LAB L501.1255 ml/min Normal Estimated CRCL 41.85 LAB L501.1300 10-20 RATIO Normal BUN/CRE 13.5 LAB L501.2200 8.5-10 mg/dL Normal .1 CA 8.6 LAB L501.5300 136-14 mmol/L Normal 5 NA 140 LAB L501.5600 3.5-5. mmol/L Normal 1 K 3.8 LAB L501.5900 98-107 mmol/L High CL 109 LAB L501.6100 21.0-3 mmol/L Normal 2.0 CO2 21.0 LAB L501.6200 5-15 Normal GAP 10 Performed By: #### L500.2500 #### [facility] [address] [place], [address] EMERGENCY DEPARTMENT Observed: 10/19/2018 Status: F Source: ANAHI SUMMARY 12:19 AM [facility] REPOSITORY [facility] Medical Records Department [address] [place] [address] Emergency Department Summary 10/18/185 MR#: [id number] Acct: [id number] Name: BRADLEY MELCHOR Rep #: [id number] : 1945 73 From: Mikhail Taylor MD PCP: Ajith Boone MD Status: ADM IN - ER Visit Summary Date of Service: 10/18/18 Chief Complaint: Facial cellulitis History of Present Illness: The patient is a 73 F presenting for evaluation secondary to facial cellulitis. Patient reports that over the course of the last 2-3 days she is in development of redness and swelling in her face. She reports that it started with some sinusitis that is been going on for a week or so. She had giving herself [id number] remedies for this. Patient reports that over the weekend she developed a fever of 102 and facial swelling. She was seen yesterday at the urgent care, and was diagnosed as having facial cellulitis and was placed on Levaquin. Patient states that despite antibiotics she has gotten worse. Physical Examination: Vital signs within normal limits. Well- nourished female no acute distress. Facial exam shows facial cellulitis that is diffuse over the entirety of the face. There appear to be some pustules on the patient's nose with some clearish yellow drainage. PRL, EOMI without any evidence of painful extraocular motion. Remainder of physical otherwise unremarkable. Test Results: CBC shows leukocytosis of 11, chemistry unremarkable, cultures pending, lactic acid negative. EKG shows sinus rate 95 occasional PACs with nonspecific ST changes. Emergency Department Course and Treatment: Patient presented secondary to worsening facial cellulitis. She does not have any evidence of septal cellulitis. Sepsis workup was obtained, was found to be grossly unremarkable. Patient will be started on clindamycin and Rocephin and admitted to the hospital for failed outpatient treatment Disposition: Admission Impression: 1. Facial cellulitis 2. Failed outpatient treatment This note was generated with StepOne dictation software. It may contain incorrect words, spelling, and punctuation that were not noted in review of the chart prior to signing ED Disposition - Plan for ED Patient: Chief Complaint: Cellulitis Referrals: Ajith Boone MD [Primary Care Provider] - What to do if you have Problems For any increased pain, shortness of breath, bleeding, nausea or vomiting, chest pain, or any unexpected problems, contact your Primary Care Provider. Call [employer] [facility] ([phone]) or report to the closest Emergency Room. Call 911 if necessary. 10/19/18 0019 <Electronically signed by Mikhail Taylor MD> Date Mikhail Taylor MD Cosigner Signature (If Indicated): Date CC: Ajith Boone MD HISTORY AND PHYSICAL Observed: 10/18/2018 Status: F Source: LUBBOCK EXAM 10:38 PM [facility] REPOSITORY [facility] Medical Records Department [address] [place] [address] History and Physical 10/18/188 MR#: [id number] Acct: [id number] Name: BRADLEY MELCHOR Rep #: [id number] : 1945 73 From: Nestor Pearson MD PCP: Ajith Boone MD Status: REG ER Y Location: ED Problem List (1) Cellulitis, face Status: Acute (2) History of total right knee replacement Status: Chronic (3) Nonrheumatic mitral (valve) insufficiency Status: Chronic (4) Hyperlipidemia Status: Chronic (5) Paroxysmal atrial tachycardia Status: Chronic History of Present Illness Date of Admission: 10/18/18 Chief Complaint: skin infection on face The patient is a 73 year old female who presents to the ER with a skin infection covering her face. She has been fighting a cold for the past week but yesterday noticed an area of redness and inflammation on her nose and she went to an urgent care and was started on Levaquin. After two doses she has had progression of the redness and it now covers her entire face. She has no pain or discomfort with eye movements but she does feel puffiness. She has loss of appetite but denies chest pain, shortness of breath and has no nausea and or vomiting. She will be admitted to medical surgical floor and placed on double IV coverage for facial cellulitis. Past Medical History Past Medical History (Chronic Problems): Chronic Problems (Last Updated 10/17/18 @ 11:39 by Leah Culp) History of total right knee replacement (Chronic) Edema (Chronic) Nonrheumatic mitral (valve) insufficiency (Chronic) Hyperlipidemia (Chronic) Paroxysmal atrial tachycardia (Chronic) Medical History: Medical History (Last Updated 10/17/18 @ 11:39 by Leah Culp) Edema (Chronic) R60.9 Nonrheumatic mitral (valve) insufficiency (Chronic) I34.0 Hyperlipidemia (Chronic) E78.5 Paroxysmal atrial tachycardia (Chronic) I47.1 Heart disease I51.9 Hemorrhoids K64.9 Hypothyroidism E03.9 Right shoulder pain M25.511 Allergies Penicillins Allergy (Severe, Verified 10/18/18 19:52) Hives adhesive Allergy (Verified 10/18/18 19:52) Rash ampicillin Allergy (Verified 10/18/18 19:52) Rash diltiazem HCl [From Cardizem] Allergy (Verified 10/18/18 19:52) Hives morphine Adverse Reaction (Verified 10/18/18 19:52) Other Home Medications: Ambulatory Orders Medication Instructions Recorded Surgical History: Surgical History (Last Updated 10/17/18 @ 11:39 by Leah Culp) History of total right knee replacement (Chronic) Z96.651 History of appendectomy Z90.49 Smoking Status: Never smoker - *Family History Maternal Family History: Family History (Last Reviewed 10/17/18 @ 11:37 by Leah Culp) Father Hypertension Myocardial infarction Pacemaker Cardiac arrhythmia Mother Alzheimer's dementia Brother Hypertension Pulmonary hypertension ALS (amyotrophic lateral sclerosis) Sister Hypertension Hyperlipidemia Pulmonary embolism History Items: No pertinent history Review of Systems Constitutional: Reports: Fever. Denies: Chills, Weight Change HEENT: Denies: Head Aches, Sinus Congestion, Sinus Drainage Cardiovascular: Denies: Chest Pain, Palpitations Respiratory: Denies: Cough, Shortness of breath at rest, Sputum production Gastrointestinal: Denies: Abdominal Pain, Nausea, Vomiting Genitourinary: Denies: Dysuria Musculoskeletal: Denies: Joint Pain, Joint Tenderness Skin: Reports: Wounds. Denies: Rash Neurological: Denies: Numbness, Tingling, Focal weakness Psychiatric: Denies: Anxiety, Depression, Homicidal Ideations, Suicidal Ideations Hematologic/ Lymphatic: Denies: Easy Bruising, Easy Bleeding VTE Information - Inpt Only VTE Present on Admission: No VTE Mechan Device Prophylaxis: SCD's VTE Pharm Prophylaxis ordered?: No Patient Problems: Active and Suspected Problems (Last Updated 10/17/18 @ 11:39 by Leah Culp) Cellulitis, face (Acute) - Physical Exam General: Alert, Oriented x3, Cooperative HEENT: Atraumatic, PERRLA, EOMI, Normocephalic Neck: Supple, Negative Carotid Bruits Lungs: Clear to auscultation, Normal air movement Cardiovascular: Regular rate, Normal S1, Normal S2, No murmurs Abdomen: Bowel Sounds Present, Soft, Non Tender Extremities: No edema, Capillary Refill Less than 3 Seconds Skin: - - erthema and warmth covering entire face , there is a 1cm area of denuded skin on bridge of nose and appears to be original source of infection Musculoskeletal: No Tenderness to Palpation of Joints or Extremities Neurological: Cranial nerves II-XII grossly intact Psych/Mental Status: Normal Affect, Appropriate Vital Signs Temp Pulse Resp BP Pulse Ox 98.0 F 79 16 144/92 H 98 10/18/18 22:24 10/18/18 22:24 10/18/18 22:24 10/18/18 22:24 10/18/18 22:24 Oxygen Delivery Method Room Air Weight: 134 lb 14.766 oz Body Mass Index (BMI) 25.0 Laboratory Tests Past 24 Hrs WBC RBC Hgb Hct MCV MCH MCHC Assessment/Plan All Active Problems (Last Updated 10/17/18 @ 11:39 by Leah Culp) Cellulitis, face (Acute) Chronic Problems (Last Updated 10/17/18 @ 11:39 by Leah Culp) History of total right knee replacement (Chronic) Edema (Chronic) Nonrheumatic mitral (valve) insufficiency (Chronic) Hyperlipidemia (Chronic) Paroxysmal atrial tachycardia (Chronic) Plan 1. Facial Cellulitis- initiate IV therapy with clindamycin and Rocephin. Repeat CBC , bmp in am. IV normal saline at 75cc/hour. Blood cultures pending. If progresses then get facial CT scan. 2. Hyperlipidemia- cont home medication 3. DVT prophylaxis- SCDs Code Visit Inpatient E AND M: 68206 Init Hosp L3 10/18/182237 <Electronically signed by Nestor Pearson MD> Date Nestor Pearson MD Cosigner Signature: Date (if applicable) CC: Ajith Boone MD; Nestor Pearson MD Signed Observed: 10/18/2018 Status: F Source: ANAHI CULTURE, WOUND 9:38 PM [facility] REPOSITORY Order Date: 10/18/18 Has pt arrived? Y Gram Stain Gram Stain 1+ White Blood Cells 1+ Epithelial cells 3+ Gram positive rods 1+ Gram positive cocci Wound Culture Clinical correlation necessary, Possible skin contamination. ORGANISM 1: Staphylococcus epidermidis Amount Growth 1+ ORGANISM 2: Staphylococcus capitis Staphylococcus epidermidis: REACTION Benzylpenicillin NF >=0.5 R Cefoxitin *NF - Clindamycin $$ <=0.25 S Inducable Clindamycin Resistan - Erythromycin $ <=0.25 S Gentamicin $ <=0.5 S Levofloxacin $ <=0.12 S Linezolid $$$$ 1 S Oxacillin NF <=0.25 S Tigecycline $$$$ <=0.12 S Rifampin $$ <=0.5 S Tetracycline NF 2 S Vancomycin $ 2 S (NF) indicates non-formulary drug at [facility]. Approval by Infectious Disease Specialist required before non-formulary drugs may be ordered and/or dispensed. * CLSI guidelines does not recommend testing of cephalosporins. This interpretation is deduced from Beta-lactam/penicillin results. Staphylococcus capitis: REACTION Benzylpenicillin NF <=0.03 R Cefoxitin *NF - Clindamycin $$ <=0.25 S Inducable Clindamycin Resistan - Erythromycin $ 0.5 S Gentamicin $ <=0.5 S Levofloxacin $ 0.5 S Oxacillin NF <=0.25 S Tigecycline $$$$ <=0.12 S Rifampin $$ <=0.5 S Tetracycline NF <=1 S Vancomycin $ <=0.5 S (NF) indicates non-formulary drug at [facility]. Approval by Infectious Disease Specialist required before non-formulary drugs may be ordered and/or dispensed. * CLSI guidelines does not recommend testing of cephalosporins. This interpretation is deduced from Beta-lactam/penicillin results. Performed By: #### M100.1400 #### [facility] [address] [place], [address] Observed: 10/18/2018 Status: F Source: ANAHI CULTURE, BLOOD (WB) 9:28 PM [facility] REPOSITORY BC No growth in 5 days. Performed By: #### M200.1000 #### [facility] [address] [place] [place], [address] CBC W/DIFF, AUTOMATED Collected: 10/18/2018 Status: F Source: ANAHI 8:40 PM [facility] REPOSITORY TYPE CODE TESTS RESULT OUT OF RANGE REFERENCE UNITS LAB L100.1000 4.4-11.0 K/mm3 High WBC 11.1 LAB L100.1200 4.2-5.4 M/mm3 Normal RBC 4.39 LAB L100.1300 12.0-15.0 g/dl Normal HGB 13.3 LAB L100.1400 37-47 % Normal HCT 39.5 LAB L100.1500 81-99 fL Normal MCV 90.0 LAB L100.1600 27.0-32.0 pg Normal MCH 30.3 LAB L100.1700 32-36 g/gl Normal MCHC 33.7 LAB L100.1810 11.6-14.6 % Normal RDW CV 13.7 LAB L100.1820 35.1-43.9 fl High RDW SD 45.2 LAB L100.1900 150-450 K/mm3 Normal PLT 214 LAB L100.2000 6.2-12.0 fl Normal MPV 11.9 LAB L100.2100 47-70 % Normal NEUT% 67.3 LAB L100.2200 19-41 % Normal LY% 20.0 LAB L100.2300 0-10 % Normal MONO% 8.7 LAB L100.2400 0-5 % Normal EO% 3.2 LAB L100.2500 0-1 % Normal BASO% 0.4 LAB L100.2550 0.0-0.9 % Normal IM GRAN % 0.400 Result Comment: IG% - Immature Granulocytes (promyelocytes, myelocytes and metamyelocytes) > 1% indicates that a LEFT SHIFT is Present. LAB L100.2620 2.0-7.7 X10 3/uL Normal Absolute Neut 7.5 LAB L100.2720 0.83-4.51 X10 3/ul Normal Absolute Lymph 2.22 Performed By: #### L100.0100 #### [facility] [address] [place], [address] PROTHROMBIN TIME W/INR Collected: 10/18/2018 Status: F Source: [place] 8:40 PM [facility] REPOSITORY TYPE CODE TESTS RESULT OUT OF RANGE REFERENCE UNITS LAB L300.4150 11.7-14.9 SECONDS High PROTIME 15.3 LAB L300.4200 Normal INR 1.2 Performed By: #### L300.3900, L300.4310 #### [facility] [address] [place], [address] PARTIAL THROMBOPLAST Collected: 10/18/2018 Status: F Source: [facility] 8:40 PM [facility] REPOSITORY TYPE CODE TESTS RESULT OUT OF REFERENCE UNITS RANGE LAB L300.4310 24.1-36.2 Seconds High PTT 55.3 Performed By: #### L300.3900, L300.4310 #### [facility] [address] [facility] [address] COMPREHENSIVE METABOLIC Collected: 10/18/2018 Status: F Source: [place]BB[place] PROFIL 8:40 PM [facility] REPOSITORY TYPE CODE TESTS RESULT OUT OF RANGE REFERENCE UNITS LAB L501.0100 74-106 mg/dL Normal GLU 89 Result Comment: Please note revised GLUCOSE reference range effective 2017. LAB L501.1000 7-18 mg/dL Normal BUN 16 LAB L501.1100 0.55-1.02 mg/dL Normal CREAT,SERUM 1.02 Result Comment: The validity of the calculated GFR AND GFRAA in patients over 70 years has not been determined. Clinical correlation is essential. LAB L501.1110 >60 mL/min Low EST GFR 56 Result Comment: Non- GFR Calc LAB L501.1115 >60 mL/min Normal EST GFR - AA 68 Result Comment: GFR Calc LAB L501.1255 ml/min Normal Estimated CRCL 36.51 LAB L501.1300 10-20 RATIO Normal BUN/CRE 15.7 LAB L501.1500 6.4-8. g/dL High 2 T PROT 8.3 LAB L501.1800 3.2-5. g/dL Normal 0 ALB 3.4 LAB L501.1950 2.2-4. g/dL High 2 GLOB 4.9 LAB L501.2000 0.9-2. RATIO Low 4 A/G 0.7 LAB L501.2200 8.5-10 mg/dL Normal .1 CA 9.0 LAB L501.4100 15-37 U/L Normal AST 27 LAB L501.4305 45-117 U/L Normal ALK P 86 LAB L501.4405 13-56 U/L Normal ALT 31 LAB L501.4600 0.20-1 mg/dL Normal .00 T BILI 0.40 LAB L501.5300 136-14 mmol/L Normal 5 NA 138 LAB L501.5600 3.5-5. mmol/L Normal 1 K 3.6 LAB L501.5900 98-107 mmol/L Normal CL 105 LAB L501.6100 21.0-3 mmol/L Normal 2.0 CO2 26.0 LAB L501.6200 5-15 Normal GAP 7 Performed By: #### L500.4050 #### [facility] [address]88[address] LACTIC ACID Collected: 10/18/2018 Status: F Source: ANAHI 8:40 PM [facility] REPOSITORY Order Comment: Yes/No query for Sepsis Lactate Rule Y TYPE CODE TESTS RESULT OUT OF RANGE REFERENCE UNITS LAB L503.6005 0.4-2.0 mmol/L Normal LACTIC ACID 1.6 Performed By: #### L503.6005 #### [facility] [address] Observed: 10/18/2018 Status: F Source: ANAHI CULTURE, BLOOD (WB) 8:40 PM [facility] REPOSITORY BC No growth in 5 days. Performed By: #### M200.1000 #### [facility] [place], [address] URGENT CARE VISIT Observed: 10/17/2018 Status: F Source: LUBBOCK REPORT 12:11 PM [facility] REPOSITORY [facility] [address] [place] [address] OFFICE VISIT Date of Service: 10/17/18 MR#: [id number] Acct: [id number] Name: BRADLEY MELCHOR Rep #: [id number] : 1945 Provider: Radha Siddiqi Age/Sex: 73/F Location: [facility] Status: Signed Intake Vital Signs10/17/18 Height 5 ft 1 in 10/17/18 Weight: 135 lb 10/17/18 Body Mass Index (BMI) 25.4 10/17/18 Blood Pressure 124/70 H Intake Visit Reasons: SWOLLEN FACE/SINUS INFECTION Sign Wirer Required: No Accompanied by: SELF Is patient in pain?: No Allergies Penicillins Allergy (Severe, Verified 10/17/18 11:37) Hives adhesive Allergy (Verified 10/17/18 11:37) Rash ampicillin Allergy (Verified 10/17/18 11:37) Rash diltiazem HCl [From Cardizem] Allergy (Verified 10/17/18 11:37) Hives morphine Adverse Reaction (Verified 10/17/18 11:37) Other Medications Aspirin [Aspirin, Baby] 81 mg PO DAILY@0800 05/02/14 [History Confirmed 10/17/18] Calcium Carbonate/Vitamin D3 [Calcium 600 + Vit D3 Tablet] 1 ea PO SUTUTHSA 05/02/14 [History Confirmed 10/17/18] Levothyroxine [Synthroid] 50 mcg PO DAILY 05/02/14 [History Confirmed 10/17/18] Metoprolol Tartrate 1 tab PO BID 05/02/14 [History Confirmed 10/17/18] Multivitamins,Therapeutic [Multivitamin] 1 tab PO DAILY 05/02/14 [History Confirmed 10/17/18] Miranda-3 Fatty Acids/Fish Oil [Miranda 3 Fish Oil Softgel] 1 ea PO DAILY 05/02/14 [History Confirmed 10/17/18] cholecalciferol (vitamin D3) 400 unit capsule 400 unit PO QDAY 11/01/17 [History Confirmed 10/17/18] levofloxacin 500 mg tablet 500 mg PO DAILY #10 tab 10/17/18 [Rx Confirmed 10/17/18] [facility] Medical History Edema (Chronic) Nonrheumatic mitral (valve) insufficiency (Chronic) Hyperlipidemia (Chronic) Paroxysmal atrial tachycardia (Chronic) Heart disease (Acute) Hemorrhoids (Acute) Hypothyroidism (Acute) Right shoulder pain (Acute) Surgical History History of total right knee replacement (Chronic) History of appendectomy (Acute) Family History Father , at age 102 Hypertension Myocardial infarction Pacemaker Cardiac arrhythmia Mother , age 74 Alzheimer's dementia Brother Hypertension Pulmonary hypertension ALS (amyotrophic lateral sclerosis) Sister Hypertension Hyperlipidemia Pulmonary embolism Social History Smoking Status: Never smoker alcohol intake: never HPI HPI Details: BRADLEY MELCHOR, is a 73 F who presents to the office today for an urgent appt. Pt sts that earlier this week she was fighting a URI. She has been taking OTC cold medications. Last night she started to feel her face swell. She noted that it was red and not. She has a blister on her nose . She noted a fever and chills last night. She does not recall being bitten by anything. She complains of her teeth and jaw hurting ROS Const Constitutional: Positive for chills, fatigue and fever(s); no anorexia, body ache or headache(s) Eyes Eyes: No discharge or eye pain ENT ENT: No headache(s), ear pain, ear pressure, tinnitus, dizziness/vertigo, nasal congestion, nasal discharge, sinus pressure, dental pain or facial pain Resp Respiratory: No cough or chest congestion Cardio Cardiology: No dyspnea on exertion, shortness of breath or irregular heart rhythm Gastro GI: No vomiting, diarrhea or heartburn Skin Skin: Positive for other (redness noted on nose/cheeks with clear blister on nose) Breast Breast: Positive for other (redness noted on nose/cheeks with clear blister on nose) Neuro Neurology: No headache(s) Endo Endocrine: Positive for fatigue Exam Const General: cooperative, no acute distress Orientation: alert, oriented x3 HENMT Head: atraumatic Ears: TM's normal bilaterally Nose: nasal mucous membranes and turbinates normal Mouth: moist mucous membranes Other: Redness noted on face, starts at center of nose with blister expands out in a circular area to upper lip and checks, some redness noted to forehead between eyes. Eyes Sclera: sclerae normal Cornea: corneas normal Pupils: PERRL EOM: EOM intact bilaterally Neck Neck: no lymphadenopathy, trachea midline, supple Neck mass: No Thyroid: thyroid normal Resp Effort AND Inspection: normal respiratory effort Auscultation: Bilateral: Clear to Auscultation Cardio Palpation: normal PMI Rate: regular rate Rhythm: regular rhythm Heart Sounds: S1 normal, S2 normal, no click, no gallops, no murmurs, no rubs GI Auscultation: normal bowel sounds Percussion: normal to percussion Palpation: soft, no hepatosplenomegaly, nontender Skin General: no rashes or lesions noted Neuro General: alert, oriented x3, CN's II-XI intact bilaterally, no focal motor deficits Assessment AND Plan Problems 1. Cellulitis of face L03.211 Plan Levaquin started. Advised that if symptoms worsen that she should go to the ER. If symptoms to not improve pt will likely need to be admitted for IV antx. Advised to monitor closely for the next 24 hours. Pt and are aware. Medications New: Coding Level of Care Code Off vis,new,level 3 Diagnoses Cellulitis of face L03.211 Site of cellulitis: face 10/17/18 1211 <Electronically signed by Radha ESTEBAN> Date Radha ESTEBAN Cosigner Signature: Date (if applicable) CC: ALLERGIES ALLERGIES DATE TYPE / CODE NAME / CODE REACTION SEVERITY SOURCE 11/09/2018 Drug diltiazem Hives Unknown [place] Allergy/416 HCl/[id number]([facility] 149640(SNOM XNORM) [facility] ED [place]) Repository 11/09/2018 Drug Penicillins/F001 Hives SV [place] Allergy/416 417816(RXNORM) [facility] 585298[facility] Repository 11/09/2018 Drug morphine/I135564 HYPOTENSION Unknown [place] Allergy/416 545(RXNORM) [facility] 731283[facility] Repository 11/09/2018 Drug ampicillin/F0060 Rash Unknown [place] Allergy/416 85582(RXNORM) [facility] 464495[facility] Repository 11/09/2018 Drug adhesive/G703452 Rash Unknown [place] Allergy/416 245(RXNORM) [facility] 227339[facility] Repository ENCOUNTERS ENCOUNTERS ADMIT/DISCHARGE ACCOUNT ADMITTING ENCOUNTER LOCATION SOURCE NUMBER CLASS 11/09/2018/ [id number] Ambulatory BMSBuilding:B [place] 9 6 [facility] Repository 10/18/2018/ [id number] Nestor Pearson Inpatient [place] 8 4 Encounter [facility] ing:FT3Nrym: Repository TV835Nfc: 1 10/18/2018 [id number] Nestor Pearson Ambulatory BMSBuilding:B [place] 1 MS.[facility] Repository 10/18/2018 [id number] Nestor Pearson Ambulatory BMSBuilding:B [place] 4 MS.[facility] Repository 10/18/2018 [id number] Ambulatory BMSBuilding:B [place] 7 MS.[facility] Repository 10/17/2018/ [id number] Ambulatory BMSBuilding:B [place] [address] [facility] Repository PAYERS PAYERS ENCOUNTER GUARANTOR PAYER SUBSCRIBER SOURCE 11/09/2018 BRADLEY Zamora Primary BRADLEY MELCHOR312 Insurance:MEDICARE BROWNDOB: [facility] PART A BPolicy Number: [id number] [id number] Repository 17[address]Gwx: [phone]) Date:2017-11-05 [phone] () 11/09/2018 Secondary BRADLEY Christian Insurance:HUMANA BROWNDOB: [facility] [id number] Hospital Number: Repository [id number] Date:4809-12-57[place] [id number]: 11/09/2018 Tertiary NOT GIVENUNK [place] Insurance:SELF PAY [facility] Number: Effective Repository Date:2018-04-27 10/18/2018 BRADLEY J Primary BRADLEY J [place] [id number] Insurance:MEDICARE BROWNDOB: Community [place] PART A BPolicy Number: [id number], [place] [id number] Repository [address]Hmb: [phone] Date:2018-10-187801 () 10/18/2018 Secondary BRADLEY J [place] Insurance:HUMANA BROWNDOB: [facility] [id number] Hospital Number: Repository [id number] Date:3788-89-71DD [address] [address]OP: 10/18/2018 Tertiary NOT GIVENUNK [place] Insurance:SELF PAY [facility] Number: Effective Repository Date:2018-10-18 10/18/2018 BRADLEY J Primary BRADLEY J [place] [id number] Insurance:MEDICARE BROWNDOB: Community [place] PART A BPolicy Number: [id number], [place] [id number] Repository 26560Num: ([phone]) Date:2018-10-180039 () 10/18/2018 Secondary BRADLEY J [place] Insurance:HUMANA BROWNDOB: [facility] [id number] Hospital Number: Repository [id number] Date:9054-50-33DX [address] [address]SZ: 10/18/2018 Tertiary NOT GIVENUNK [place] Insurance:SELF PAY [facility] Number: Effective Repository Date:2018-10-18 10/18/2018 BRADLEY J Primary BRADLEY J [place] [id number] Insurance:MEDICARE BROWNDOB: Community [place] PART A BPolicy Number: [id number], [place] [id number] Repository 58[address]Ngt: ([phone]) Date:2018-10-18 [phone] () 10/18/2018 Secondary BRADLEY J [place] Insurance:HUMANA BROWNDOB: [facility] [id number] Hospital Number: Repository [id number] Date:3940-91-71UO [address] [address]RM: 10/18/2018 Tertiary NOT GIVENUNK [place] Insurance:SELF PAY [facility] Number: Effective Repository Date:2018-10-18 10/18/2018 BRADLEY J Primary BRADLEY J [place] [id number] Insurance:MEDICARE BROWNDOB: Community [place] PART A BPolicy Number: [id number], [place] [id number] Repository [address]Nev: [phone]) Date:2018-10-18 [phone] () 10/18/2018 Secondary BRADLEY J [place] Insurance:HUMANA BROWNDOB: [facility] [id number] Hospital Number: Repository [id number] Date:1282-47-91WT [address] [address]AY: 10/18/2018 Tertiary NOT GIVENUNK [place] Insurance:SELF PAY [facility] Number: Effective Repository Date:2018-10-18 10/17/2018 BRADLEY J Primary BRADLEY J [place] [id number] Insurance:MEDICARE BROWNDOB: Community [place] PART A BPolicy Number: [id number], [place] [id number] Repository [address]Unr: ([phone]) Date:2018-10-17 [phone] () 10/17/2018 Secondary BRADLEY J [place] Insurance:HUMANA BROWNDOB: [facility] [id number] Hospital Number: Repository [id number] Date:[id number] [address] [address]AN: 10/17/2018 Tertiary NOT GIVENUNK [place] Insurance:SELF PAY [facility] Number: Effective Repository Date:2018-10-17
== END 2018-10-20 14:54 | disposition home or self-care (01) | DRG 155 ==
LOC: ED 20:31 → MS3 22:53
PROVIDERS: Admitting Provider Family Medicine; Emergency Provider Emergency Medicine; Family Provider Family Medicine; PCP Family Medicine; Visit Provider Internal Medicine
DX: J34.0 Abscess, furuncle and carbuncle of nose (principal); L03.211 Cellulitis of face; I47.1 Supraventricular tachycardia; E78.5 Hyperlipidemia, unspecified; Z79.899 Other long term (current) drug therapy; E03.9 Hypothyroidism, unspecified; I34.0 Nonrheumatic mitral (valve) insufficiency; Z96.651 Presence of right artificial knee joint; K21.9 Gastro-esophageal reflux disease without esophagitis
CPT/HCPCS: 36415; 80048; 80053; 82962; 83605; 85025; 85027; 85610; 85730; 87040; 87070; 87186; 87205; 87641; 93005; 99284; J7030; A4216

== ENCOUNTER → 2019-01-07 08:55 | Outpatient (CLI) | payer MEDICARE, OTHER, SELFPAY ==
[2018-10-18 23:35] VITALS: BMI 24.9
[2018-11-09 09:59] VITALS: BMI 25.3
--- NOTE | 2019-01-07 08:59 | BI_ITS ---
MAMMOGRAPHY - BILATERAL SCREENING REASON FOR EXAM: Female, 73 years old. Routine annual screening examination. PERTINENT HISTORY: Sister with breast cancer. Grandmother with breast cancer. Aunt with breast cancer. TECHNIQUE: Digital bilateral breast emerson (3D mammographic acquisition) in the CC and MLO projections. 2-D mediolateral oblique (MLO) and craniocaudad (CC) views of both breasts were obtained. CAD: Full Field Digital Mammography with Computer Added Detection was performed. COMPARISON: Comparison is made with prior study dated November 04, 2017 and October 15, 2016. FINDINGS: Breast Composition: The breasts are heterogeneously dense, which may obscure small masses. There are no dominant masses or suspicious calcifications. No other significant abnormalities are identified. There has been no significant change since the prior study. BI/SCREENING MAMM (CAD), BILAT IMPRESSION: Stable bilateral screening mammogram. Yearly follow-up mammogram recommended. (A) ASSESSMENT CATEGORY: BIRADS Category 1: Negative. A letter regarding these results will be sent to the patient by the facility within 30 days. Approximately 10% of breast cancers are not detected by mammography. A normal mammogram should not delay biopsy of a clinically suspicious abnormality. [id number] Electronically Signed: Adin Qureshi, at 14:41 EST , Service support ,
== END ==
PROVIDERS: Family Provider Family Medicine; PCP Family Medicine; Referring Provider Family Medicine; Visit Provider Family Medicine
DX: Z12.31 Encounter for screening mammogram for malignant neoplasm of breast (principal)
CPT/HCPCS: 77063; 77067

== ENCOUNTER → 2019-04-11 10:18 | Outpatient (CLI) | payer MEDICARE, OTHER, SELFPAY ==
[2018-11-09 09:59] VITALS: BMI 25.3
[2019-04-11 12:57] LABS: Cholesterol 205 mg/dL (200); High Density Lipoprotein 49 mg/dL; Thyroid Stim Hormone (TSH) 1.38 uIU/mL (0.358-3.74); Triglycerides 183 mg/dL; Very Low Density Lipoprotein 37 mg/dL (5-40)
== END ==
PROVIDERS: Family Provider Family Medicine; PCP Family Medicine; Visit Provider Family Medicine
DX: E78.5 Hyperlipidemia, unspecified (principal); E03.9 Hypothyroidism, unspecified
CPT/HCPCS: 36415; 80061; 84443

== ENCOUNTER → 2019-08-08 16:11 | Outpatient (CLI) | payer MEDICARE, OTHER, SELFPAY ==
[2019-06-10 08:24] VITALS: BMI 25.3
--- NOTE | 2019-08-08 16:17 | RAD_ITS ---
STUDY: X-RAY - RIGHT TIBIA AND FIBULA REASON FOR EXAM: Female, 74 years old. Anterior tibial pain TECHNIQUE: 2 view(s) of the tibia and fibula were obtained. COMPARISON: None. FINDINGS: Normal visualized tibia. Normal visualized fibula. The soft tissue structures are unremarkable. RAD/Tibia & Fibula 2 Views IMPRESSION: Normal x-ray examination of the tibia and fibula. No fracture Electronically Signed: Randy Garcia MD at 2:43 EDT Tel , Service support ,
== END ==
PROVIDERS: Family Provider Family Medicine; PCP Family Medicine; Referring Provider Family Medicine; Visit Provider Family Medicine
DX: M79.604 Pain in right leg (principal)
CPT/HCPCS: 73590

== ENCOUNTER → 2020-01-11 10:55 | Outpatient (CLI) | payer MEDICARE, OTHER, SELFPAY ==
[2019-11-08 07:36] VITALS: BMI 25.4
--- NOTE | 2020-01-11 10:59 | BI_ITS ---
MAMMOGRAPHY - BILATERAL SCREENING REASON FOR EXAM: Female, 74 years old. Routine annual screening examination. PERTINENT HISTORY: Sister with breast cancer. Grandmother with breast cancer. TECHNIQUE: Digital bilateral breast rogelio (3D mammographic acquisition) in the CC and MLO projections. 2-D mediolateral oblique (MLO) and craniocaudad (CC) views of both breasts were obtained. CAD: Full Field Digital Mammography with Computer Added Detection was performed. COMPARISON: Comparison is made with prior examination dated January 07, 2019 and November 04, 2017. FINDINGS: Breast Composition: The breasts are heterogeneously dense, which may obscure small masses. There are no dominant masses or suspicious calcifications. No other significant abnormalities are identified. There has been no significant change since the prior study. BI/SCREEN MAMM (CAD) W/ROGELIO BILAT IMPRESSION: Stable bilateral screening mammogram. Yearly follow-up mammogram recommended. (A) ASSESSMENT CATEGORY: BIRADS Category 1: Negative. A letter regarding these results will be sent to the patient by the facility within 30 days. Approximately 10% of breast cancers are not detected by mammography. A normal mammogram should not delay biopsy of a clinically suspicious abnormality. [id number] Electronically Signed: Adin Qureshi, at 12:49 EDT , Service support ,
== END ==
PROVIDERS: PCP Family Medicine; Referring Provider Family Medicine; Visit Provider Family Medicine
DX: Z12.31 Encounter for screening mammogram for malignant neoplasm of breast (principal); Z80.3 Family history of malignant neoplasm of breast
CPT/HCPCS: 77063; 77067

== ENCOUNTER 2020-04-08 12:49 | Inpatient (IN) | payer MEDICARE, OTHER, SELFPAY ==
[2019-11-08 07:36] VITALS: BMI 25.4
[2020-04-08] VITALS (8 sets, daily range): BP systolic 120–156; BP diastolic 58–74; PULSE 102–106; RESP 16–19; TEMP 36.7–37.4; O2SAT 94–96; BMI 23.6; BMI 26.2
--- NOTE | 2020-04-08 13:19 | EKG12_ITS ---
Test Reason : Blood Pressure : / mmHG Vent. Rate : 103 BPM Atrial Rate : 103 BPM P-R Int : 168 ms QRS Dur : 070 ms QT Int : 330 ms P-R-T Axes : 052 -33 024 degrees QTc Int : 432 ms Sinus tachycardia Left axis deviation Low voltage QRS Abnormal ECG Confirmed by EMILY WOLFE, HANNAH ([id number]), greeting card editor DEMAR BOONE ([id number]) on 04/10/2020 10:14:41 AM Referred By: SAVANAH Confirmed By:HANNAH DIAZ MD
--- NOTE | 2020-04-08 13:33 | ED.DCSUM_ITS ---
- ER Visit Summary Date of Service: 04/08/20 Chief Complaint: Fever History of Present Illness: The patient is a 75 F who presents with fever that has been constant for the past week. Patient states her temperature is up to 102.8. Patient states she had a recent COVID swab done 2 days ago but was told it may take up to a week for the results. Patient admits to a cough and some shortness of breath. Patient admits to general myalgias and aches. Patient admits to some pain in her neck when she turns her head from side to side. Patient states she is able to flex her chin to her chest without any pain. Patient states she has been taking Tylenol every 8 hours. Patient states Tylenol last for 6 hours and then the last 2 hours she needs to have a fever. Patient admits to a mild headache. Patient denies any chest pain or palpitations. Physical Examination: Vital signs are stable except for mild tachycardia of 105. Patient is afebrile here. Patient is in no acute distress. Oral mucosa is pink and moist. Neck is supple. Trachea is midline. There is no JVD. Heart w as regular and slightly tachycardic. Lungs showed some rales in the right base. There is good respiratory effort noted. Abdomen is soft. Bowel sounds are normal. There is no tenderness. Cranial nerves II through XII are intact. There are no focal motor or sensory deficits noted. Extremities are intact. There is no calf tenderness or edema. Test Results: EKG showed sinus tachycardia with a rate of 103. There are no acute ST or T wave changes. CBC shows a leukocytosis of 15.3. Comprehensive metabolic profile was normal. Urinalysis does not show any evidence of urinary tract infection. Troponin was normal. Lactate was normal at 1.8. Portable chest x-ray was obtained. There is a right lower lobe infiltrate. This was interpreted by the radiologist and reviewed by myself. Blood cultures were obtained. COVID swab was obtained and is pending. Emergency Department Course and Treatment: Patient was given IV fluid bolus here. Patient was given Rocephin and Zithromax. Patient was also given a dose of Tylenol here. Patient was feeling better on reevaluation. Case was discussed with the hospitalist. Patient will be admitted for observation. Patient understood and was agreeable with the plan. All questions were answered. Disposition: Admit to hospital Impression: 1. Pneumonia This note was generated with ABPathfinder dictation software. It may contain incorrect words, spelling, and punctuation that were not noted in review of the chart prior to signing ED Disposition - Plan for ED Patient: Disposition: Acute Care Hospital [facility] Diagnosis: Pneumonia
[2020-04-08] MEDS: 0.9% Normal Saline 1,000 ML 1000 ML IV (13:55)
--- NOTE | 2020-04-08 14:01 | RAD_ITS ---
STUDY: X-RAY CHEST REASON FOR EXAM: Female, 75 years old. CHILLS AND BODY ACHES STARTING THURSDAY -- FEVER STARTING THURSDAY -- HIGHEST AT HOME 102.8 THIS AM -- COUGH SINCE THURSDAY -- TESTED FOR COVID THURSDAY TECHNIQUE: Single frontal view of the chest. COMPARISON: April 03, 2011 FINDINGS: There is a ill-defined opacity within the right lower lung. Normal size heart. Normal mediastinum and oleg. Normal visualized pulmonary arteries. Normal visualized aortic arch and descending thoracic aorta. Normal visualized thoracic spine. Normal visualized ribs, clavicles, and shoulders. There is no demonstrated abnormality of the visualized soft tissue structures of the upper abdomen. RAD/Chest 1 View (Portable) IMPRESSION: Ill-defined opacity within the right lower lung consistent with an underlying pneumonia. Electronically Signed: Yenifer Barron MD at 14:37 EDT Tel , Service support ,
[2020-04-08 14:38] LABS: Absolute Neutrophil Count 12.8 X10^3/uL (2.0-7.7); Basophil# 0.06 X10^3/uL; Basophil% 0.4 % (0-1); Eosinophil# 0.02 X10^3/uL; Eosinophils% 0.1 % (0-5); Hematocrit 37.6 % (37-47); Hemoglobin 12.4 g/dL (12.0-15.0); Lymphocyte % 5.9 % (19-41); Mean Corpuscular Hgb 30.1 pg (27.0-32.0); Mean Corpuscular Volume 91.3 fL (81-99); Mean Platelet Vol. 11.9 fl (6.2-12.0); Monocyte# 1.38 X10^3/uL; NRBC Flagged by Analyzer 0 % (0-5); Neutrophil % 83.9 % (47-70); Platelet Count 201 K/mm3 (150-450); RBC Distribution Width SD 46.6 fl (35.1-43.9); Red Blood Count 4.12 M/mm3 (4.2-5.4); White Blood Count 15.3 K/mm3 (4.4-11.0)
[2020-04-08 14:42] LABS: International Normalized Ratio 1.3; Prothrombin Time (Protime)PT. 16.1 SECONDS (11.7-14.9)
--- NOTE | 2020-04-08 14:52 | ED.RN ---
UNABLE TO OBTAIN LABS WITH IV ACCESS. LAB WAS CALLED AND SUGEY BLOOD BUT NOT CULTURES, SAID I'LL BE BACK LATER TO GET THE CULTURES. THIS RN CALLED LAB D/T ATB ORDERS AND MD WANTS AT LEAST ONE CULTURE BEFORE ATB INITIATED.
[2020-04-08 15:00] LABS: Lactic Acid 1.8 mmol/L (0.4-1.9)
[2020-04-08 15:05] LABS: ALB/GLOB Ratio 0.5 RATIO (0.9-2.4); AST(SGOT) 33 U/L (15-37); Alanine Aminotransfer ALT/SGPT 33 U/L (13-56); Albumin, Serum 2.6 g/dL (3.2-5.0); Alkaline Phosphatase 113 U/L (45-117); Anion Gap 9 (5-15); BUN 15 mg/dL (7-18); BUN/Creat Ratio 15.9 RATIO (10-20); Calcium,Total 8.8 mg/dL (8.5-10.1); Chloride 103 mmol/L (98-107); Creatinine, Serum 0.94 mg/dL (0.55-1.02); EST Glomerular Filtration Rate 61 mL/min (>60); Est Glom Filt Rate - Afr Amer 74 mL/min (>60); Estimated Creatinine Clearance 42.12 ml/min; Glucose 118 mg/dL (74-106); Potassium 4.2 mmol/L (3.5-5.1); Protein, Total 7.6 g/dL (6.4-8.2); Sodium Level 136 mmol/L (136-145)
[2020-04-08 15:30] LABS: Mucous, Urine 0 SEEN /hpf (<or=2+); Red Blood Cells-Urine 0 SEEN /hpf (0-5)
[2020-04-08 15:31] LABS: Color, Urine Amber (Yellow); Glucose, Dipstick Normal (Normal); Ketone-Dipstick 5 mg/dl (Negative); Leukocyte Esterase-Dipstick 25 /ul (Negative); Nitrite-Dipstick Negative (Negative); Occult Blood-Urine 25 /ul (Negative); Protein-Dipstick 100 mg/dl (Negative); Specific Gravity, Urine 1.015 (1.002-1.030); Urine Bilirubin Dipstick Negative (Negative); Urine Clarity Sl. Cloudy (Clear); Urine Urobilinogen 8 mg/dl (Normal); Urine pH 6.5 (5.0 - 8.0)
[2020-04-08] MEDS: Acetaminophen 500 MG Tablet 1000 MG PO (15:33)
[2020-04-08 15:38] LABS: White Blood Cells 0-5 SEEN /hpf (0-5)
[2020-04-08 15:39] LABS: Bacteria RARE /hpf (None Seen); Hyaline Cast 0-5 SEEN /lpf (0-5); Squamous Epithelial Cells - UA 0-5 SEEN /hpf (5-10)
--- NOTE | 2020-04-08 15:49 | PCM.HP.STD ---
History of Present Illness Date of Admission: 04/08/20 The patient is a 75 year old F who about 1 week ago began to have a fever and chills with a Tmax today of 102.8. She states that she had a temp yesterday as well that was >102. She has had associated cough and SOB with aches and myalgias. She states that she has been using APAP for fever control every 8 hrs. She also admits to a mild URIARTE. She saw her PCP on Thursday and was given an order for a COVID-19 and had it done at a drive up screening but the results are unknown as of yet. Her VS are stable other than mild tachycardia with rates in the low 100's. SpO2 is 94-96% on RA. She has a mild leukocytosis with L shift, but the rest of her lab work looks good. COVID-19 was done in the ED and is negative Past Medical History Past Medical History (Chronic Problems): Chronic Problems (Last Reviewed 11/08/19 @ 10:[address] Luca Mcallister MD) Premature ventricular contractions (Chronic) Paroxysmal atrial tachycardia (Chronic) Hyperlipidemia (Chronic) Medical History: Medical History (Last Reviewed 04/08/20 @ 15:[address] Lilia Alejandra, DO) Paroxysmal atrial tachycardia (Chronic) I47.1 Hyperlipidemia (Chronic) E78.5 Hemorrhoids K64.9 Hypothyroidism E03.9 Edema (Resolved) R60.9 Right shoulder pain M25.511 Heart disease I51.9 Nonrheumatic mitral (valve) insufficiency (Inactive) I34.0 Allergies Penicillins Allergy (Severe, Verified 04/08/20 12:50) Hives adhesive Allergy (Verified 04/08/20 12:50) Rash ampicillin Allergy (Verified 04/08/20 12:50) Rash diltiazem HCl [From Cardizem] Allergy (Verified 04/08/20 12:50) Hives morphine Adverse Reaction (Verified 04/08/20 12:50) hypotension Home Medications: Ambulatory Orders Medication Instructions Recorded Aspirin [Aspirin, Baby] 81 mg PO DAILY@0800 05/02/14 Calcium Carbonate/Vitamin D3 1 ea PO SUTUTHSA 05/02/14 [Calcium 600-Vit D3 800 Tablet] Levothyroxine [Synthroid] 50 mcg PO DAILY 05/02/14 Metoprolol Tartrate 25 mg PO BID 05/02/14 Multivitamins,Therapeutic 1 tab PO DAILY 05/02/14 [Multivitamin] [place]-3 Fatty Acids/Fish Oil 1 ea PO DAILY 05/02/14 [[place] 3 Fish Oil Softgel] cholecalciferol (vitamin D3) 10 400 unit PO QODAY 11/01/17 mcg (400 unit) capsule Melatonin 5 mg PO QHS 10/18/18 Acetaminophen [Tylenol Tablet] 650 mg PO Q4H PRN PRN tab 10/20/18 Surgical History: Surgical History (Last Reviewed 11/08/19 @ 10:[address] Luca Mcallister MD) History of appendectomy Z90.49 History of hysterectomy Z90.710 Smoking Status: Never smoker - *Family History Maternal Family History: Family History (Last Reviewed 04/08/20 @ 15:[address] Lilia Alejandra DO) Father Hypertension Myocardial infarction Pacemaker Cardiac arrhythmia Mother Alzheimer's dementia Brother Hypertension Pulmonary hypertension ALS (amyotrophic lateral sclerosis) Sister Hypertension Hyperlipidemia Pulmonary embolism History Items: No pertinent history Review of Systems Constitutional: Reports: Chills, Fever, Malaise, Weakness, Fatigue. Denies: Anorexia, Night Sweats, Weight Change Eyes: Denies: Blurred vision, Cataracts, Conjunctivae Inflammation, Double vision, Drainage, Eyelid Inflammation, Pain, Redness, Vision Change HEENT: Denies: Difficulty Hearing, Difficulty Swallowing, Dysphasia, Ear Pain, Eye Pain, Hard of Hearing, Head Aches, Hearing Changes, Nasal bleeding, Nasal Congestion, Post Nasal Drip, Sinus Congestion, Sinus Drainage, Sore Throat, Visual Changes Cardiovascular: Denies: Chest Pain, Claudication, Chest Pressure, Chest Tightness, Edema, Heaviness, Light Headedness, Orthopnea, Palpitations, Paroxysmal Noc. Dyspnea, Syncope Respiratory: Reports: Cough, Shortness of Breath, Shortness of breath at rest, Shortness of breath upon exertion. Denies: Hemoptysis, Pleuritic Pain, Sputum production, Wheezing Gastrointestinal: Denies: Abdominal Pain, Constipation, Diarrhea, Dyspepsia, Hematemesis, Hematochezia, Nausea, Melena, Vomiting Genitourinary: Denies: Dysuria, Frequency, Hematuria, Hesitancy, Incontinence, Nocturia, Retention, Urgency Gynecological: Denies: Vaginal bleeding Musculoskeletal: Reports: Joint stiffness, Muscle pain, - - + myalgias. Denies: Joint swelling, Joint Tenderness Skin: Denies: Dryness, Jaundice, Lesions, Pruritis, Rash, Skin Changes, Wounds Neurological: Reports: Headaches. Denies: Balance problems, Blurred vision, Double vision, Change in Speech, Slurred speech, Confusion, Difficulty swallowing, Focal weakness, Incoordination, Numbness, Tremor, Seizures Psychiatric: Denies: Anxiety, Depression Endocrine: Denies: Change in Body Habitus, Heat/ Cold Intolerance, Polydipsia, Polyuria Hematologic/ Lymphatic: Denies: Adenopathy, Anemia, Easy Bruising, Easy Bleeding, Petechiae, Purpura, Hx of blood clot, Hx of blood transfusion VTE Information - Inpt Only VTE Present on Admission: No VTE Mechan Device Prophylaxis: None VTE Pharm Prophylaxis ordered?: Yes Patient Problems: Active and Suspected Problems (Last Reviewed 11/08/19 @ 10:[address] Luca Mcallister MD) Pneumonia (Acute) - Physical Exam Vitals/I&O's: Vital Signs Temp Pulse Resp BP Pulse Ox 99.4 F H 106 H 17 156/69 H 96 04/08/20 15:29 04/08/20 15:29 04/08/20 12:51 04/08/20 15:29 04/08/20 15:29 Oxygen Delivery Method Room Air Weight: 60.5 kg Body Mass Index (BMI) 23.6 General: Alert, Oriented x3, Cooperative, No apparent distress, Well developed, Well nourished, - - WF who appears younger than stated ages, looks as if she doesn't feel well HEENT: Atraumatic, PERRLA, EOMI, Normocephalic, EAC Clear Oral: No Gingival or Mucosal Lesions/ Ulcerations, Dry Mucosa Neck: Supple, No JVD, Negative Carotid Bruits, Negative Hepatojugular Reflux, No Nodes, No Nuchal Rigidity, Trachea Midline, Thyroid Normal Size and Texture Lungs: No rhonchi, No wheeze, Rales - R Base, Short of Breath - mild with conversation Cardiovascular: Regular Rhythm, Normal S1, Normal S2, No murmurs, No Ectopic Activity, No rub noted, No Gallop, Tachycardic Abdomen: Bowel Sounds Present, Soft, Non Tender, Non-Distended, No Hepato-splenomegaly, No hernias noted Extremities: No clubbing, No cyanosis, No edema, Capillary Refill Less than 3 Seconds, Peripheral Pulses Normal Skin: No rashes, No breakdown Musculoskeletal: No Tenderness to Palpation of Joints or Extremities, No Muscle Wasting, Arthritic Changes Lymphatic: No Cervical, Supraclavicular, or Inguinal Adenopathy Neurological: Cranial nerves II-XII grossly intact, Deep Tendon Reflexes 2+/4 and Symmetrical, Neuro grossly intact, Motor Exam 5/5 strength throughout Psych/Mental Status: Normal Affect, Appropriate, Alert and oriented to time, place, person, mood and affect Laboratory Results 04/08/20 14:24: WBC 15.3 H, RBC 4.12 L, Hgb 12.4, Hct 37.6, MCV 91.3, MCH 30.1, MCHC 33.0, RDW Std Deviation 46.6 H, RDW Coeff of Geno 14.0, Plt Count 201, MPV 11.9, Immature Gran % (Auto) 0.700, Neut % (Auto) 83.9 H, Lymph % (Auto) 5.9 L, [place] % (Auto) 9.0, Eos % (Auto) 0.1, Baso % (Auto) 0.4, Absolute Neuts (auto) 12.8 H, Absolute Lymphs (auto) 0.90, Nucleated RBC % 0 04/08/20 14:24: PT 16.1 H, INR 1.3, APTT 52.0 H 04/08/20 14:24: Sodium 136, Potassium 4.2, Chloride 103, Carbon Dioxide 24.0, Anion Gap 9, BUN 15, Creatinine 0.94, Estim Creat Clear Calc 42.12, Est GFR (MDRD) Af Amer 74, Est GFR (MDRD) Non-Af 61, BUN/Creatinine Ratio 15.9, Glucose 118 H, Calcium 8.8, Total Bilirubin 0.70, AST 33, ALT 33, Alkaline Phosphatase 113, Troponin I < 0.015, Total Protein 7.6, Albumin 2.6 L, Globulin 5.0 H, Albumin/Globulin Ratio 0.5 L 04/08/20 14:24: Lactic Acid 1.8 04/08/20 14:55: COVID-19 (THALIA) Pending 04/08/20 15:20: Urine Color Lorraine, Urine Clarity Sl. Cloudy, Urine pH 6.5, Ur Specific [place] 1.015, Urine Protein 100 H, Urine Glucose (UA) Normal, Urine Ketones 5 H, Urine Occult Blood 25 H, Urine Nitrite Negative, Urine Bilirubin Negative, Urine Urobilinogen 8 H, Ur Leukocyte Esterase 25 H, Urine RBC 0 SEEN, Urine WBC 0-5 SEEN, Ur Squamous Epith Cells 0-5 SEEN, Urine Bacteria RARE, Hyaline Casts 0-5 SEEN, Urine Mucus 0 SEEN Assessment/Plan All Active Problems (Last Reviewed 11/08/19 @ 10:[address] Luca Mcallister MD) Pneumonia (Acute) SOB (shortness of breath) on exertion (Acute) Acute bronchitis (Resolved) Cellulitis, face (Resolved) Edema (Resolved) RLL PNA -Admit as observation--> if remains stable likely ok for d/c tomorrow -COVID-19 neg in ED -CTX and Azithro -PRN HFA -IS -Check S.Pneumo/Legionella urine antigens -sputum cx if able to produce -CXR in am -gentle hydration to compensate for sensible losses 2/2 fever -apap for fever -Blood cx sent Myalgias -will use prn NSAIDs for myalgias -watch renal function Sinus Tachycardia-mild -suspect reactive with fever and infection -monitor -pt does have h/o paroxysmal atrial tach and on chronic BB HPL -on Fish oil Hypothyroidism -continue Synthroid Mitral Valve Prolapse -on BB -Sees Dr. Mcallister H/O PVC -on BB as pt was symptomatic with this -Sees Dr. Mcallister DVT Prophylaxis -Lovenox Code Status -Full Inpatient E&M: 97476 Init Hosp L3
[2020-04-08 16:49] LABS: Probe Check PASS; Specimen Processing Control PASS
[2020-04-08] MEDS: 0.9% Normal Saline 1,000 ML 50 ML IV (17:55)
[2020-04-08 19:20] LABS: M R Staph aureus DNA By PCR Negative (Negative); Probe Check PASS; Specimen Processing Control PASS
[2020-04-08] MEDS: Acetaminophen 325 MG Tablet 650 MG PO (21:02)
[2020-04-08] MEDS: MELATONIN 10 MG TABLET 5 MG PO (21:04)
[2020-04-08] MEDS: Metoprolol Tartrate 25 MG Tablet PO (21:04)
[2020-04-08] MEDS: guaiFENesin 1,200 MG Tablet 1200 MG PO (21:05)
[2020-04-09] VITALS (9 sets, daily range): BP systolic 112–141; BP diastolic 53–74; PULSE 79–95; RESP 16; TEMP 36.8–38.1; O2SAT 95–96
[2020-04-09] MEDS: Acetaminophen 325 MG Tablet 650 MG PO ×2 (03:13→17:43)
[2020-04-09] MEDS: guaiFENesin 10 ML UDC (200MG/10ML) PO (03:13)
[2020-04-09] MEDS: Levothyroxine 50 MCG Tablet PO (05:56)
--- NOTE | 2020-04-09 05:59 | RAD_ITS ---
STUDY: X-RAY CHEST REASON FOR EXAM: Female, 75 years old. PNEUMONIA TECHNIQUE: PA and lateral views of the chest. COMPARISON: Comparison is made with prior examination April 08, 2020. FINDINGS: Since prior study, there has been progressive infiltration in the right lower lobe. There is no demonstrated pleural abnormality. Normal size heart. Normal mediastinum and oleg. Normal visualized pulmonary arteries. There is atherosclerotic tortuosity of the aortic arch and descending thoracic aorta. There are degenerative changes of the visualized thoracic spine. Normal visualized ribs, clavicles, and shoulders. There is no demonstrated abnormality of the visualized soft tissue structures of the upper abdomen. RAD/Chest PA and Lateral IMPRESSION: Progressive right lower lobe infiltrate. Electronically Signed: Adin Qureshi, at 8:54 EDT , Service support ,
[2020-04-09 06:13] LABS: Absolute Lymphocyte Count 1.32 X10^3/uL (0.83-4.51); Absolute Neutrophil Count 10.6 X10^3/uL (2.0-7.7); Basophil# 0.04 X10^3/uL; Basophil% 0.3 % (0-1); Eosinophil# 0.08 X10^3/uL; Eosinophils% 0.6 % (0-5); Hematocrit 32.9 % (37-47); Hemoglobin 10.9 g/dL (12.0-15.0); Lymphocyte # 1.32 X10^3/ul (4.0); Lymphocyte % 9.8 % (19-41); Mean Corp Hgb Conc 33.1 g/dL (32-36); Mean Corpuscular Hgb 30.1 pg (27.0-32.0); Mean Corpuscular Volume 90.9 fL (81-99); Mean Platelet Vol. 11.8 fl (6.2-12.0); Monocyte# 1.35 X10^3/uL; NRBC Flagged by Analyzer 0 % (0-5); Neutrophil # 10.57 X10^3/uL (2.7-7.7); Neutrophil % 78.5 % (47-70); Platelet Count 201 K/mm3 (150-450); RBC Distribution Width SD 46.2 fl (35.1-43.9); Red Blood Count 3.62 M/mm3 (4.2-5.4); White Blood Count 13.5 K/mm3 (4.4-11.0)
[2020-04-09 06:50] LABS: Anion Gap 7 (5-15); BUN 12 mg/dL (7-18); Calcium,Total 8.3 mg/dL (8.5-10.1); Chloride 107 mmol/L (98-107); Creatinine, Serum 0.75 mg/dL (0.55-1.02); EST Glomerular Filtration Rate 80 mL/min (>60); Est Glom Filt Rate - Afr Amer 97 mL/min (>60); Estimated Creatinine Clearance 34.38 ml/min; Glucose 103 mg/dL (74-106); Magnesium 2.1 mg/dL (1.6-2.6); Phosphorus 1.7 mg/dL (2.5-4.9); Potassium 3.7 mmol/L (3.5-5.1); Sodium Level 137 mmol/L (136-145)
--- NOTE | 2020-04-09 08:20 | PCM.PN.HOSP ---
Patient Problems: Active and Suspected Problems (Last Reviewed 04/08/20 @ 15:[address] Lilia Alejandra DO) Pneumonia (Acute) Reason for Visit: Follow-up on pneumonia. Subjective: Patient was seen and examined. Denied any new complaint. Denied any fever or chills. Vitals/I&O's: Vital Signs Temp Pulse Resp BP Pulse Ox 99.6 F H 79 16 129/66 H 96 04/09/20 04:12 04/09/20 03:19 04/09/20 03:19 04/09/20 03:19 04/09/20 07:07 Oxygen Delivery Method Room Air Weight: 60.781 kg Body Mass Index (BMI) 26.2 Intake and Output for Last 24 Hours 04/07/20 04/08/20 04/09/20 23:59 23:59 23:59 Intake Total 1605 / 1605 1208.33 / 1208.33 Output Total 450 / 450 550 / 550 Balance 1155 / 1155 658.33 / 658.33 General: Alert, Oriented x3, Cooperative, No apparent distress HEENT: Atraumatic, PERRLA, EOMI, Normocephalic Oral: Moist Mucosa Neck: Supple Lungs: Diminished - no wheezes heard Cardiovascular: Regular rate, Regular Rhythm, Normal S1, Normal S2 Abdomen: Bowel Sounds Present, Soft, Non Tender, Non-Distended, No Hepato-splenomegaly Extremities: No edema Skin: No rashes, No breakdown Musculoskeletal: No Tenderness to Palpation of Joints or Extremities Lymphatic: No Cervical, Supraclavicular, or Inguinal Adenopathy Neurological: Cranial nerves II-XII grossly intact, Neuro grossly intact Psych/Mental Status: Normal Affect, Appropriate Microbiology Past 72 Hours 04/08/20 16:00 Urine, Clean Catch Streptococcus pneumoniae Antigen (M - Final 04/08/20 16:00 Urine, Clean Catch Legionella Antigen - Final Laboratory Results 04/08/20 14:24: WBC 15.3 H, RBC 4.12 L, Hgb 12.4, Hct 37.6, MCV 91.3, MCH 30.1, MCHC 33.0, RDW Std Deviation 46.6 H, RDW Coeff of Geno 14.0, Plt Count 201, MPV 11.9, Immature Gran % (Auto) 0.700, Neut % (Auto) 83.9 H, Lymph % (Auto) 5.9 L, [place] % (Auto) 9.0, Eos % (Auto) 0.1, Baso % (Auto) 0.4, Absolute Neuts (auto) 12.8 H, Absolute Lymphs (auto) 0.90, Nucleated RBC % 0 04/08/20 14:24: PT 16.1 H, INR 1.3, APTT 52.0 H 04/08/20 14:24: Sodium 136, Potassium 4.2, Chloride 103, Carbon Dioxide 24.0, Anion Gap 9, BUN 15, Creatinine 0.94, Estim Creat Clear Calc 42.12, Est GFR (MDRD) Af Amer 74, Est GFR (MDRD) Non-Af 61, BUN/Creatinine Ratio 15.9, Glucose 118 H, Calcium 8.8, Total Bilirubin 0.70, AST 33, ALT 33, Alkaline Phosphatase 113, Troponin I < 0.015, Total Protein 7.6, Albumin 2.6 L, Globulin 5.0 H, Albumin/Globulin Ratio 0.5 L 04/08/20 14:24: Lactic Acid 1.8 04/08/20 14:55: COVID-19 (THALIA) Negative 04/08/20 15:20: Urine Color [place], Urine Clarity Sl. Cloudy, Urine pH 6.5, Ur Specific [place] 1.015, Urine Protein 100 H, Urine Glucose (UA) Normal, Urine Ketones 5 H, Urine Occult Blood 25 H, Urine Nitrite Negative, Urine Bilirubin Negative, Urine Urobilinogen 8 H, Ur Leukocyte Esterase 25 H, Urine RBC 0 SEEN, Urine WBC 0-5 SEEN, Ur Squamous Epith Cells 0-5 SEEN, Urine Bacteria RARE, Hyaline Casts 0-5 SEEN, Urine Mucus 0 SEEN 04/08/20 18:00: MRSA (PCR) Negative 04/09/20 05:40: WBC 13.5 H, RBC 3.62 L, Hgb 10.9 L, Hct 32.9 L, MCV 90.9, MCH 30.1, MCHC 33.1, RDW Std Deviation 46.2 H, RDW Coeff of Geno 14.0, Plt Count 201, MPV 11.8, Immature Gran % (Auto) 0.800, Neut % (Auto) 78.5 H, Lymph % (Auto) 9.8 L, [place] % (Auto) 10.0, Eos % (Auto) 0.6, Baso % (Auto) 0.3, Absolute Neuts (auto) 10.6 H, Absolute Lymphs (auto) 1.32, Nucleated RBC % 0 04/09/20 05:40: Sodium 137, Potassium 3.7, Chloride 107, Carbon Dioxide 23.0, Anion Gap 7, BUN 12, Creatinine 0.75, Estim Creat Clear Calc 34.38, Est GFR (MDRD) Af Amer 97, Est GFR (MDRD) Non-Af 80, BUN/Creatinine Ratio 16.0, Glucose 103, Calcium 8.3 L, Phosphorus 1.7 L, Magnesium 2.1 Current Medications Acetaminophen (Tylenol) 650 mg PO Q6H PRN PRN PRN Reason: Pain Score 1-10/Temp > 100.7 F Last Admin: 04/09/20 03:13 Dose: 650 mg Documented by: Al Hydroxide/Mg Hydroxide (Mylanta Ii) 30 ml PO Q6H PRN PRN PRN Reason: Gastric Burning Albuterol Sulfate (Ventolin Aerosols) 2.5 mg INHALATION Q2H PRN PRN PRN Reason: Shortness of Breath/Wheezing Aspirin (Aspirin, Baby) 81 mg PO DAILY@0800 [facility] Calcium/Vitamin D (Os-Leif 500mg + D) 1 tablet PO SuTuThSa@0800 [facility] Dextrose (D50w Syringe) 0 gm IV X1 PRN; Protocol PRN Reason: Hypoglycemia Enoxaparin Sodium (Lovenox) 40 mg SC DAILY [facility] Glucagon () 1 mg IM .X1 PRN PRN Reason: Hypoglycemia Guaifenesin (Robitussin) 10 ml PO Q4H PRN PRN PRN Reason: cough Last Admin: 04/09/20 03:13 Dose: 10 ml Documented by: Sodium Chloride () 1,000 mls @ 50 mls/hr IV .Q20H PHIL Last Infusion: 04/09/20 08:05 Dose: 50 mls/hr Documented by: Ceftriaxone Sodium 2 gm/ (Sodium Chloride) 50 mls @ 100 mls/hr IV Q24 PHIL Stop: 04/16/20 10:01 Azithromycin 500 mg/ Dextrose 255 mls @ 250 mls/hr IV Q24 PHIL Stop: 04/14/20 10:01 Sodium Chloride () 250 mls @ 15 mls/hr IV .[id number] PRN PRN Reason: Saline Flush Sodium Chloride () 250 mls @ 15 mls/hr IV .[id number] PRN PRN Reason: Additional IVPB Infusion Ibuprofen (Motrin) 400 mg PO Q4H PRN PRN PRN Reason: Pain Score 1-10/Temp > 100.7 F Levothyroxine Sodium (Synthroid) 50 mcg PO DAILY@0600 [facility] Last Admin: 04/09/20 05:56 Dose: 50 mcg Documented by: Melatonin (Melatonin) 5 mg PO QHS [facility] Last Admin: 04/08/20 21:04 Dose: 5 mg Documented by: Metoprolol Tartrate (Lopressor (Beta Marta)) 25 mg PO BID [facility] Last Admin: 04/08/20 21:04 Dose: 25 mg Documented by: Multivitamins ([facility]ivitamin) [facility] Ondansetron HCl (Zofran) 4 mg IV Q8H PRN PRN PRN Reason: NAUSEA/VOMITING Potassium Phos/Sodium Phos (Neutra-Phos Packet) 1 packet PO 4X/DAY [facility] Stop: 04/09/20 22:01 Sodium Chloride () 10 - 40 ml IV UD PRN PRN Reason: SALINE FLUSH STROKE Vital Signs/Narrative: Vital Signs Pulse Ox 04/09/20 07:07 96 Medical Necessity - Tobacco Use Smoking Status: Never smoker Tobacco Use: Non-smoker Assessment/Plan All Active Problems (Last Reviewed 04/08/20 @ 15:[address] Lilia Alejandra, DO) Pneumonia (Acute) SOB (shortness of breath) on exertion (Acute) Acute bronchitis (Resolved) Cellulitis, face (Resolved) Edema (Resolved) 1. Pneumonia, right lower lobe, likely secondary to suspected gram-positive organisms Fever appears to have improved. T-max was 100.5 WBC count improved from 15.3-13.5 Continue on IV ceftriaxone and azithromycin Also on oxygen, encourage use of incentive spirometer 2. Hypophosphatemia, replace, recheck in a.m. 3. History of mitral valve prolapse/hypertension, Continue on metoprolol 4. Hyperlipidemia, on fish oil 5. Hypothyroidism, on Synthroid 6. DVT PPx- Lovenox SC 7. Disposition: possible DC in am if improved Inpatient E&M: 22707 Subs Hosp L2
[2020-04-09] MEDS: 0.9% Saline Lock 10 ML Syringe IV (08:37)
[2020-04-09] MEDS: Multivitamins,Therapeutic Tablet 1 TABLET PO (08:38)
[2020-04-09] MEDS: Metoprolol Tartrate 25 MG Tablet PO ×2 (08:38→21:44)
[2020-04-09] MEDS: Aspirin 81 MG TAB.CHEW PO (08:38)
[2020-04-09] MEDS: Ondansetron 4 MG/2 ML Vial IV (08:38)
[2020-04-09] MEDS: Enoxaparin 40 MG/0.4 ML Syringe SC (09:02)
[2020-04-09] MEDS: Na Biphos/Potassium Phosphate PACKET 1 PACKET PO ×3 (09:48→17:38)
--- NOTE | 2020-04-09 11:05 | CASEMGMT ---
Intro role of CM to patient and MARTIN form explained re: Observation status for treatment of PNEUMONIA. Explained hospitalization will be paid per? insurance policy for Outpatient billing?and condition will continue to be evaluated for Inpt necessity. Also let pt know that [facility] sends paper in the billing packet with their phone number if questions arise. Discussed Pharmacy section of MARTIN form and self administered medication guideline.? Pt verbalizes understanding and does not have further questions. Form signed and placed in chart, copy to pt. MINI GALLEGO BSN CM
--- NOTE | 2020-04-09 12:50 | CHAPLAIN ---
Type of Pastoral Visit _x__ Initial Visit ___ Follow-up Visit ___ On-call Visit ___ General Patient Visit ___ Spiritual Assessment ___ Family Conference ___ Bereavement ___ Rapid Response ___ Code Blue ___ Other (describe below) Pastoral Care Referral From _x__ Patient ___ Family ___ Nurse ___ Physician ___ [place] Feeder ___ Wine Steward ___ Other (describe below) Sacrament/Intervention _x__ Active listening ___ Anointing ___ Moravian ___ Bereavement ___ Communion ___ Nancy exploration ___ _x__ Life review _x__ Prayer ___ Reconciliation ___ Sacrament of Sick _x__ Supportive presence ___ Wedding ___ Other (describe below) Pastoral Comments patient requested call to be made to 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
[2020-04-09] MEDS: 0.9% Normal Saline 1,000 ML 50 ML IV (13:17)
[2020-04-09] MEDS: Loperamide 2 MG Capsule PO (21:44)
[2020-04-09] MEDS: MELATONIN 10 MG TABLET 5 MG PO (21:45)
[2020-04-10] VITALS (13 sets, daily range): BP systolic 110–133; BP diastolic 38–93; PULSE 82–154; RESP 16–18; TEMP 36.8–37.6; O2SAT 94–95
[2020-04-10] MEDS: Acetaminophen 325 MG Tablet 650 MG PO (05:25)
[2020-04-10] MEDS: Levothyroxine 50 MCG Tablet PO (05:26)
[2020-04-10 05:53] LABS: Absolute Lymphocyte Count 1.82 X10^3/uL (0.83-4.51); Absolute Neutrophil Count 6.2 X10^3/uL (2.0-7.7); Basophil# 0.08 X10^3/uL; Basophil% 0.8 % (0-1); Eosinophil# 0.36 X10^3/uL; Eosinophils% 3.8 % (0-5); Hematocrit 40.7 % (37-47); Hemoglobin 12.3 g/dL (12.0-15.0); Lymphocyte # 1.82 X10^3/ul (4.0); Lymphocyte % 19.1 % (19-41); Mean Corp Hgb Conc 30.2 g/dL (32-36); Mean Corpuscular Hgb 30.1 pg (27.0-32.0); Mean Corpuscular Volume 99.8 fL (81-99); Mean Platelet Vol. 12.2 fl (6.2-12.0); Monocyte# 0.85 X10^3/uL; Monocyte% 8.9 % (0-10); NRBC Flagged by Analyzer 0 % (0-5); Neutrophil # 6.23 X10^3/uL (2.7-7.7); Neutrophil % 65.5 % (47-70); Platelet Count 184 K/mm3 (150-450); RBC Distribution Width CV 14.5 % (11.6-14.6); RBC Distribution Width SD 53.3 fl (35.1-43.9); Red Blood Count 4.08 M/mm3 (4.2-5.4); White Blood Count 9.5 K/mm3 (4.4-11.0)
[2020-04-10 06:13] LABS: Albumin, Serum 2.2 g/dL (3.2-5.0); BUN 10 mg/dL (7-18); BUN/Creat Ratio 14.1 RATIO (10-20); Calcium,Total 8.4 mg/dL (8.5-10.1); Chloride 103 mmol/L (98-107); Creatinine, Serum 0.71 mg/dL (0.55-1.02); EST Glomerular Filtration Rate 85 mL/min (>60); Est Glom Filt Rate - Afr Amer 103 mL/min (>60); Estimated Creatinine Clearance 34.38 ml/min; Glucose 88 mg/dL (74-106); Sodium Level 133 mmol/L (136-145)
--- NOTE | 2020-04-10 09:09 | NURSING ---
Pt complaining of heart racing and that it began about 1 hour ago. LASHONDA Mercer in with patient with pulse oximetry and noticed that heart rate was jumping from 70 to 150 [address] Ruslan [address] Tyson and tele applied at this time to monitor.
--- NOTE | 2020-04-10 09:15 | EKG12_ITS ---
Test Reason : ARRYTHMIA Blood Pressure : / mmHG Vent. Rate : 150 BPM Atrial Rate : 166 BPM P-R Int : 000 ms QRS Dur : 068 ms QT Int : 284 ms P-R-T Axes : 000 -23 -02 degrees QTc Int : 448 ms Atrial fibrillation Low voltage QRS Abnormal ECG When compared with ECG of 08-APR-2020 13:36, MANUAL COMPARISON REQUIRED, DATA IS UNCONFIRMED Confirmed by EMILY WOLFE, HANNAH ([id number]), development editor LELE GUSTAFSON ([id number]) on 04/17/2020 9:46:30 AM Referred By: TONY Confirmed By:HANNAH DIAZ MD
[2020-04-10] MEDS: Aspirin 81 MG TAB.CHEW PO (09:33)
[2020-04-10] MEDS: Calcium Carb/Vitamin D 1 TABLET Tablet PO (09:33)
[2020-04-10] MEDS: Multivitamins,Therapeutic Tablet 1 TABLET PO (09:33)
[2020-04-10] MEDS: Metoprolol Tartrate 25 MG Tablet PO ×2 (09:33→09:47)
[2020-04-10] MEDS: Metoprolol Tartrate 5 MG/5 ML Vial IV (09:48)
[2020-04-10] MEDS: Enoxaparin 40 MG/0.4 ML Syringe SC (09:51)
--- NOTE | 2020-04-10 10:19 | PN_ITS ---
Patient Problems: Active and Suspected Problems (Last Reviewed 04/08/20 @ 15:[address] Lilia Alejandra, DO) Pneumonia (Acute) Reason for Visit: Follow-up on pneumonia Subjective: Patient was seen and examined. She complains of palpitations. EKG shows sinus tachycardia. Repeat EKG shows atrial fibrillation with RVR 165. Telemetry shows atrial fibrillation with last for a few seconds. Heart rate got better with IV metoprolol 5mg x1 and an extra metoprolol 25 mg x 1. Home metoprolol dose elevated to 50mg BID. No fever or chills. Objective: Physical exam: General: Alert, Oriented x3, Cooperative, No apparent distress HEENT: Atraumatic, PERRLA, EOMI, Normocephalic Oral: Moist Mucosa Neck: Supple Lungs: Diminished - no wheezes heard Cardiovascular: Regular rate, Regular Rhythm, Normal S1, Normal S2 Abdomen: Bowel Sounds Present, Soft, Non Tender, Non-Distended, No Hepato- splenomegaly Extremities: No edema Skin: No rashes, No breakdown Musculoskeletal: No Tenderness to Palpation of Joints or Extremities Lymphatic: No Cervical, Supraclavicular, or Inguinal Adenopathy Neurological: Cranial nerves II-XII grossly intact, Neuro grossly intact Psych/Mental Status: Normal Affect, Appropriate Vitals/I&O's: Vital Signs Temp Pulse Resp BP Pulse Ox 98.2 F 145 H 18 114/78 94 04/10/20 09:30 04/10/20 09:48 04/10/20 09:30 04/10/20 09:30 04/10/20 09:30 Oxygen Delivery Method Room Air Weight: 60.781 kg Body Mass Index (BMI) 26.2 Intake and Output for Last 24 Hours 04/08/20 04/09/20 04/10/20 23:59 23:59 23:59 Intake Total 1605 / 1605 2113.33 / 2113.33 1450 / 1450 Output Total 450 / 450 1150 / 1150 1000 / 1000 Balance 1155 / 1155 963.33 / 963.33 450 / 450 Microbiology Past 72 Hours 04/09/20 03:07 Sputum, Expectorated/Coughed Gram Stain - Final 04/08/20 16:00 Urine, Clean Catch Streptococcus pneumoniae Antigen (M - Final 04/08/20 16:00 Urine, Clean Catch Legionella Antigen - Final Laboratory Results 04/10/20 05:12: WBC 9.5, RBC 4.08 L, Hgb 12.3, Hct 40.7, MCV 99.8 H D, MCH 30.1, MCHC 30.2 L D, RDW Std Deviation 53.3 H, RDW Coeff of Geno 14.5, Plt Count 184, MPV 12.2 H, Immature Gran % (Auto) 1.900 H, Neut % (Auto) 65.5, Lymph % (Auto) 19.1, [place] % (Auto) 8.9, Eos % (Auto) 3.8, Baso % (Auto) 0.8, Absolute Neuts (auto) 6.2, Absolute Lymphs (auto) 1.82, Nucleated RBC % 0 04/10/20 05:12: Sodium 133 L, Potassium 4.0, Chloride 103, Carbon Dioxide 20.0 L , BUN 10, Creatinine 0.71, Estim Creat Clear Calc 34.38, Est GFR (MDRD) Af Amer 103, Est GFR (MDRD) Non-Af 85, BUN/Creatinine Ratio 14.1, Glucose 88, Calcium 8.4 L, Phosphorus 2.0 L, Albumin 2.2 L Current Medications Acetaminophen (Tylenol) 650 mg PO Q6H PRN PRN PRN Reason: Pain Score 1-10/Temp > 100.7 F Last Admin: 04/10/20 05:25 Dose: 650 mg Documented by: Al Hydroxide/Mg Hydroxide (Mylanta Ii) 30 ml PO Q6H PRN PRN PRN Reason: Gastric Burning Albuterol Sulfate (Ventolin Aerosols) 2.5 mg INHALATION Q2H PRN PRN PRN Reason: Shortness of Breath/Wheezing Aspirin (Aspirin, Baby) 81 mg PO DAILY@0800 [facility] Last Admin: 04/10/20 09:33 Dose: 81 mg Documented by: Calcium/Vitamin D (Os-Leif 500mg + D) 1 tablet PO SuTuThSa@0800 [facility] Last Admin: 04/10/20 09:33 Dose: 1 tablet Documented by: Dextrose (D50w Syringe) 0 gm IV X1 PRN; Protocol PRN Reason: Hypoglycemia Enoxaparin Sodium (Lovenox) 40 mg SC DAILY [facility] Last Admin: 04/10/20 09:51 Dose: 40 mg Documented by: Glucagon () 1 mg IM .X1 PRN PRN Reason: Hypoglycemia Guaifenesin (Robitussin) 10 ml PO Q4H PRN PRN PRN Reason: cough Last Admin: 04/09/20 03:13 Dose: 10 ml Documented by: Ceftriaxone Sodium 2 gm/ (Sodium Chloride) 50 mls @ 100 mls/hr IV Q24 [facility] Stop: 04/16/20 10:01 Last Infusion: 04/10/20 10:06 Dose: Infused Documented by: Azithromycin 500 mg/ Dextrose 255 mls @ 250 mls/hr IV Q24 [facility] Stop: 04/14/20 10:01 Last Admin: 04/10/20 09:55 Dose: 250 mls/hr Documented by: Sodium Chloride () 250 mls @ 15 mls/hr IV .[id number] PRN PRN Reason: Saline Flush Sodium Chloride () 250 mls @ 15 mls/hr IV .[id number] PRN PRN Reason: Additional IVPB Infusion Levothyroxine Sodium (Synthroid) 50 mcg PO DAILY@0600 [facility] Last Admin: 04/10/20 05:26 Dose: 50 mcg Documented by: Loperamide HCl (Imodium) 2 mg PO Q2H PRN PRN PRN Reason: Diarrhea Last Admin: 04/09/20 21:44 Dose: 2 mg Documented by: Melatonin (Melatonin) 5 mg PO QHS [facility] Last Admin: 04/09/20 21:45 Dose: 5 mg Documented by: Metoprolol Tartrate (Lopressor (Beta Marta)) 50 mg PO BID [facility] Multivitamins ([facility]ivitamin) [facility] Last Admin: 04/10/20 09:33 Dose: 1 tablet Documented by: Ondansetron HCl (Zofran) 4 mg IV Q8H PRN PRN PRN Reason: NAUSEA/VOMITING Last Admin: 04/09/20 08:38 Dose: 4 mg Documented by: Potassium Phos/Sodium Phos (Neutra-Phos Packet) 1 packet PO 4X/DAY [facility] Last Admin: 04/10/20 09:51 Dose: 1 packet Documented by: Sodium Chloride () 10 - 40 ml IV UD PRN PRN Reason: SALINE FLUSH Last Admin: 04/09/20 08:37 Dose: 10 ml Documented by: STROKE Vital Signs/Narrative: Vital Signs Temp Pulse Resp BP Pulse Ox 04/10/20 09:48 145 H 04/10/20 09:47 145 H 04/10/20 09:33 145 H 04/10/20 09:30 98.2 F 145 H 18 114/78 94 04/10/20 09:29 154 H Medical Necessity - Tobacco Use Smoking Status: Never smoker Tobacco Use: Non-smoker Assessment/Plan All Active Problems (Last Reviewed 04/08/20 @ 15:[address] Lilia Alejandra, DO) Pneumonia (Acute) SOB (shortness of breath) on exertion (Acute) Acute bronchitis (Resolved) Cellulitis, face (Resolved) Edema (Resolved) 1. New-onset A. fib with RVR, CHADS2-VASC score is more than 2 Magnesium is 2.0, potassium 4.0. S/p metoprolol 5mg IV x1, metoprolol 25mg x 1 Will continue on increased dose of metoprolol. Patient declines on being started on anticoagulant. She prefers to follow-up with in the outpatient within 2 weeks to talk about that. 2. Pneumonia, right lower lobe, likely secondary to suspected gram-positive organisms No fevers. WBC is 9.5 Continue on IV ceftriaxone and azithromycin Also on oxygen, encourage use of incentive spirometer 2. Hypophosphatemia, remaisn low at 2.0 Replace, recheck in a.m. 3. History of mitral valve prolapse/hypertension, Continue on metoprolol 4. Hyperlipidemia, on fish oil 5. Hypothyroidism, on Synthroid 6. DVT PPx- Lovenox SC 7. Disposition: possible DC in am if improved Inpatient E&M: 42900 Subs Hosp L2
[2020-04-10] MEDS: Na Biphos/Potassium Phosphate PACKET 1 PACKET PO ×2 (10:23→18:32)
--- NOTE | 2020-04-10 13:35 | CASEMGMT ---
RN CM Face to Face with patient for initial transition planning/care coordination assessment. RN CM introduced self and role at [facility]. Patient sitting in chair, alert and oriented. Patient willing to participate in assessment and is able to answer all questions appropriately. Care providers, pharmacy, and demographics verified. Patient wishes to discharge home, denies need for home health at this time. Patient states she has no further needs or concerns at this time. CM to follow for discharge planning needs that may arise. PCP: Selin Specialists: Ary looping inspector Preferred Pharmacy: [facility] Insurance: [employer], [place] Prescription Benefit: yes Living Will/HPOA: yes, Tom Melchor LNOK: Living Arrangements: Patient lives with in 1 story home with 2 steps to enter the home. Transportation: self/ DME/HHC: Patient denies DME, denies previous HHC. Disposition Plan: Patient to discharge home with family support and follow-up plans in place. Krystyna SULLIVAN, RN, CM
[2020-04-10] MEDS: MELATONIN 10 MG TABLET 5 MG PO (21:57)
[2020-04-10] MEDS: Metoprolol Tartrate 50 MG Tablet PO (21:58)
[2020-04-11] VITALS (7 sets, daily range): BP systolic 123–163; BP diastolic 60–78; PULSE 69–78; RESP 16–18; TEMP 36.6–36.7; O2SAT 96–97
[2020-04-11] MEDS: Levothyroxine 50 MCG Tablet PO (06:24)
--- NOTE | 2020-04-11 07:50 | PCM.DC ---
- Discharge Diagnoses Current Active Problems: Current Active and Chronic Problems (Last Reviewed 04/08/20 @ 15:[address] Lilia Alejandra, DO) Pneumonia (Acute) Reason(s) for Visit for Discharge Instructions: Pneumonia You will use the following diet at home:: Cardiac Your food should be the consistency of: Regular Your liquids should be the consistency of: Regular/Thin Discharge Activity: Return to Normal Activity Additional Instructions: Complete your antibiotics as prescribed. Take note of changes in your medications. Continue to keep yourself hydrated. Follow-up with your production support consultant within 2 weeks. Follow-up with your primary care doctor within 1 to 2 weeks. Allergies/Adverse Reactions: Allergies Penicillins Allergy (Severe, Verified 04/08/20 12:50) Hives adhesive Allergy (Verified 04/08/20 12:50) Rash ampicillin Allergy (Verified 04/08/20 12:50) Rash diltiazem HCl [From Cardizem] Allergy (Verified 04/08/20 12:50) Hives morphine Adverse Reaction (Verified 04/08/20 12:50) hypotension Medications to take at Discharge Aspirin [Aspirin, Baby] 81 mg PO DINNER 05/02/14 Calcium Carbonate/Vitamin D3 [Calcium 600-Vit D3 800 Tablet] 1 ea PO SUTUTHSA 05/02/14 Levothyroxine [Synthroid] 50 mcg PO DAILY 05/02/14 Multivitamins,Therapeutic [Multivitamin] 1 tab PO DAILY 05/02/14 [place]-3 Fatty Acids/Fish Oil [[place] 3 Fish Oil Softgel] 1 ea PO DAILY 05/02/14 cholecalciferol (vitamin D3) 10 mcg (400 unit) capsule 400 unit PO QODAY 11/01/17 Melatonin 5 mg PO QHS 10/18/18 Acetaminophen [Tylenol Tablet] 650 mg PO Q4H PRN PRN tab 10/20/18 Azithromycin 500 mg PO DAILY 1 Days #1 tab 04/11/20 Cefdinir 300 mg PO BID 3 Days #6 cap 04/11/20 Guaifenesin [Robitussin] 10 ml PO Q4H PRN PRN #1 bottle 04/11/20 Metoprolol Tartrate [Lopressor (beta dona)] 50 mg PO BID 30 Days #60 tab 04/11/20 The following prescriptions were given: Azithromycin 500 mg PO DAILY 1 Days #1 tab Transmission Status: Pending to [facility] Cefdinir 300 mg PO BID 3 Days #6 cap Transmission Status: Pending to [facility] Metoprolol Tartrate [Lopressor (beta dona)] 50 mg PO BID 30 Days #60 tab Transmission Status: Pending to [facility] Guaifenesin [Robitussin] 10 ml PO Q4H PRN PRN #1 bottle PRN Reason: cough Transmission Status: Pending to [facility] Primary Care Physician: Ajith Smallwood MD [Primary Care Provider] - Please follow up with your Primary Care Physician in: within 1-2 weeks Test Results: Test results from this visit will be discussed in further detail at your follow-up appointment, if applicable. Please Follow Up With: Luca Mcallister MD When: within 2 weeks Proposed Discharge Date: 04/11/20
--- NOTE | 2020-04-11 07:57 | PCM.DC.SUM ---
Discharge Date and Diagnosis - Problem List Patient Problems: Active and Suspected Problems (Last Reviewed 04/08/20 @ 15:[address] Lilia Alejandra DO) Pneumonia (Acute) Date of Admission: 04/08/20 Date of Discharge: 04/11/20 - Primary Discharge Diagnosis Acute Problems: Active Problems (Last Reviewed 04/08/20 @ 15:[address] Lilia Alejandra DO) Pneumonia (Acute) New onset paroxysmal A. fib with RVR Hypophosphatemia - Secondary Discharge Diagnosis Chronic Problems: Chronic Problems (Last Reviewed 04/08/20 @ 15:[address] Lilia Alejandra DO) Premature ventricular contractions (Chronic) Paroxysmal atrial tachycardia (Chronic) Hyperlipidemia (Chronic) Hospital Course and Treatment Imaging Results: Clinical Impression(s) from Imaging Studies Chest X-Ray 04/08/20 14:01 IMPRESSION: Ill-defined opacity within the right lower lung consistent with an underlying pneumonia. Electronically Signed: Yenifer Barron MD at 14:37 EDT Tel , Service support , Chest X-Ray 04/09/20 05:59 IMPRESSION: Progressive right lower lobe infiltrate. Electronically Signed: Adin Qureshi at 8:54 EDT , Service support , Operations: None Summary of Care Provided: The patient is a 75 year old F past medical history of mitral valve prolapse, hypertension, paroxysmal atrial tachycardia who comes in with complaints of fever, chills, cough and shortness of breath. Patient had seen her primary care doctor who ordered for COVID-19 testing results were not available. COVID-19 testing done in the ED was negative. Patient's chest x-ray showed opacity in the right lower lobe lobe. She was admitted and managed as pneumonia. She was started on IV ceftriaxone and azithromycin. Patient continued to improve. On 04/10/20, patient developed PAF, rate controlled, INR therapeutic at 2.7, will continue on Coumadin, hold beta-marta for now, will continue to monitor, received IV metoprolol x1 as well as an increase in her home metoprolol dose. She converted to normal sinus rhythm. Discussed starting anticoagulation as her ttvsh0hgll score was elevated. Risks of stroke were presented to the patient. Patient declined to be started on anticoagulation. Prefer to talk to her primary oncology nurse navigator in the outpatient. Recommended to make an appointment within 1 to 2 weeks with her primary oncology nurse navigator and discuss. Patient Problems: Active and Suspected Problems (Last Reviewed 04/08/20 @ 15:[address] Lilia Alejandra, DO) Pneumonia (Acute) Subjective: On the day of discharge, patient was seen and examined. Denied any new complaint. Objective: Physical exam: General: Alert, Oriented x3, Cooperative, No apparent distress HEENT: Atraumatic, PERRLA, EOMI, Normocephalic Oral: Moist Mucosa Neck: Supple Lungs: Diminished - no wheezes heard Cardiovascular: Regular rate, Regular Rhythm, Normal S1, Normal S2 Abdomen: Bowel Sounds Present, Soft, Non Tender, Non-Distended, No Hepato-splenomegaly Extremities: No edema Skin: No rashes, No breakdown Musculoskeletal: No Tenderness to Palpation of Joints or Extremities Lymphatic: No Cervical, Supraclavicular, or Inguinal Adenopathy Neurological: Cranial nerves II-XII grossly intact, Neuro grossly intact Psych/Mental Status: Normal Affect, Appropriate - Physical Exam Vitals/I&O's: Vital Signs Temp Pulse Resp BP Pulse Ox 98.0 F 78 18 138/78 H 96 04/11/20 02:11 04/11/20 07:30 04/11/20 02:11 04/11/20 02:11 04/11/20 02:11 Oxygen Delivery Method Room Air Weight: 60.781 kg Body Mass Index (BMI) 26.2 Intake and Output for Last 24 Hours 04/09/20 04/10/20 04/11/20 23:59 23:59 23:59 Intake Total 2113.33 / 2113.33 1705 / 1705 Output Total 1150 / 1150 1600 / 1600 Balance 963.33 / 963.33 105 / 105 Microbiology Past 72 Hours 04/08/20 15:06 Blood Culture (Wb) - Left Hand Blood Culture - Preliminary No growth in 48 hours. 04/08/20 15:00 Blood Culture (Wb) - Anticubital Left Blood Culture - Preliminary No growth in 48 hours. 04/09/20 03:07 Sputum, Expectorated/Coughed Gram Stain - Final 04/09/20 03:07 Sputum, Expectorated/Coughed Respiratory Culture - Preliminary Appears to be normal respiratory harry. Further studies to follow. 04/08/20 16:00 Urine, Clean Catch Streptococcus pneumoniae Antigen (M - Final 04/08/20 16:00 Urine, Clean Catch Legionella Antigen - Final Current Medications Acetaminophen (Tylenol) 650 mg PO Q6H PRN PRN PRN Reason: Pain Score 1-10/Temp > 100.7 F Last Admin: 04/10/20 05:25 Dose: 650 mg Documented by: Al Hydroxide/Mg Hydroxide (Mylanta Ii) 30 ml PO Q6H PRN PRN PRN Reason: Gastric Burning Albuterol Sulfate (Ventolin Aerosols) 2.5 mg INHALATION Q2H PRN PRN PRN Reason: Shortness of Breath/Wheezing Aspirin (Aspirin, Baby) 81 mg PO DAILY@0800 [facility] Last Admin: 04/10/20 09:33 Dose: 81 mg Documented by: Calcium/Vitamin D (Os-Leif 500mg + D) 1 tablet PO SuTuThSa@0800 [facility] Last Admin: 04/10/20 09:33 Dose: 1 tablet Documented by: Dextrose (D50w Syringe) 0 gm IV X1 PRN; Protocol PRN Reason: Hypoglycemia Enoxaparin Sodium (Lovenox) 40 mg SC DAILY [facility] Last Admin: 04/10/20 09:51 Dose: 40 mg Documented by: Glucagon () 1 mg IM .X1 PRN PRN Reason: Hypoglycemia Guaifenesin (Robitussin) 10 ml PO Q4H PRN PRN PRN Reason: cough Last Admin: 04/09/20 03:13 Dose: 10 ml Documented by: Ceftriaxone Sodium 2 gm/ (Sodium Chloride) 50 mls @ 100 mls/hr IV Q24 [facility] Stop: 04/16/20 10:01 Last Infusion: 04/10/20 10:06 Dose: Infused Documented by: Azithromycin 500 mg/ Dextrose 255 mls @ 250 mls/hr IV Q24 [facility] Stop: 04/14/20 10:01 Last Infusion: 04/10/20 10:57 Dose: Infused Documented by: Sodium Chloride () 250 mls @ 15 mls/hr IV .[id number] PRN PRN Reason: Saline Flush Sodium Chloride () 250 mls @ 15 mls/hr IV .[id number] PRN PRN Reason: Additional IVPB Infusion Levothyroxine Sodium (Synthroid) 50 mcg PO DAILY@0600 [facility] Last Admin: 04/11/20 06:24 Dose: 50 mcg Documented by: Loperamide HCl (Imodium) 2 mg PO Q2H PRN PRN PRN Reason: Diarrhea Last Admin: 04/09/20 21:44 Dose: 2 mg Documented by: Melatonin (Melatonin) 5 mg PO QHS [facility] Last Admin: 04/10/20 21:57 Dose: 5 mg Documented by: Metoprolol Tartrate (Lopressor (Beta Marta)) 50 mg PO BID [facility] Last Admin: 04/10/20 21:58 Dose: 50 mg Documented by: Multivitamins ([facility]ivitamin) [facility] Last Admin: 04/10/20 09:33 Dose: 1 tablet Documented by: Ondansetron HCl (Zofran) 4 mg IV Q8H PRN PRN PRN Reason: NAUSEA/VOMITING Last Admin: 04/09/20 08:38 Dose: 4 mg Documented by: Potassium Phos/Sodium Phos (Neutra-Phos Packet) 1 packet PO 4X/DAY [facility] Last Admin: 04/10/20 22:01 Dose: Not Given Documented by: Sodium Chloride () 10 - 40 ml IV UD PRN PRN Reason: SALINE FLUSH Last Admin: 04/09/20 08:37 Dose: 10 ml Documented by: Discharge Diet: Low fat/ Low Cholesterol, 2000 mg Sodium Diet Discharge Activity: Return to Normal Activity Home Medications: Medications to take at Discharge Aspirin [Aspirin, Baby] 81 mg PO DINNER 05/02/14 Calcium Carbonate/Vitamin D3 [Calcium 600-Vit D3 800 Tablet] 1 ea PO SUTUTHSA 05/02/14 Levothyroxine [Synthroid] 50 mcg PO DAILY 05/02/14 Multivitamins,Therapeutic [Multivitamin] 1 tab PO DAILY 05/02/14 [place]-3 Fatty Acids/Fish Oil [[place] 3 Fish Oil Softgel] 1 ea PO DAILY 05/02/14 cholecalciferol (vitamin D3) 10 mcg (400 unit) capsule 400 unit PO QODAY 11/01/17 Melatonin 5 mg PO QHS 10/18/18 Acetaminophen [Tylenol Tablet] 650 mg PO Q4H PRN PRN tab 10/20/18 Azithromycin 500 mg PO DAILY 1 Days #1 tab 04/11/20 Cefdinir 300 mg PO BID 3 Days #6 cap 04/11/20 Guaifenesin [Robitussin] 10 ml PO Q4H PRN PRN #1 bottle 04/11/20 Metoprolol Tartrate [Lopressor (beta marta)] 50 mg PO BID 30 Days #60 tab 04/11/20 Following Prescrptions Were Given to Patient: Azithromycin 500 mg PO DAILY 1 Days #1 tab Transmission Status: Received by [facility] Cefdinir 300 mg PO BID 3 Days #6 cap Transmission Status: Received by [facility] Metoprolol Tartrate [Lopressor (beta marta)] 50 mg PO BID 30 Days #60 tab Transmission Status: Received by [facility] Guaifenesin [Robitussin] 10 ml PO Q4H PRN PRN #1 bottle PRN Reason: cough Transmission Status: Received by [facility] Primary Care Physician: Ajith Smallwood MD [Primary Care Provider] - Please follow up with your Primary Care Physician in: within 1-2 weeks Please Follow Up With: Luca Mcallister MD When: within 2 weeks Disposition: Home Minutes spent on discharge:: 45 Patient Condition:: Stable Medical Necessity - Tobacco Use Smoking Status: Never smoker Tobacco Use: Non-smoker Meaningful Use Info Meaningful Use Diagnoses (Choose all that apply): None applicable Inpatient E&M: 35192 Disch Hosp
[2020-04-11] MEDS: Aspirin 81 MG TAB.CHEW PO (08:16)
[2020-04-11] MEDS: Acetaminophen 325 MG Tablet 650 MG PO (08:17)
[2020-04-11] MEDS: Multivitamins,Therapeutic Tablet 1 TABLET PO (08:17)
[2020-04-11] MEDS: Metoprolol Tartrate 50 MG Tablet PO (08:18)
[2020-04-11 08:30] LABS: Absolute Lymphocyte Count 1.68 X10^3/uL (0.83-4.51); Absolute Neutrophil Count 5.9 X10^3/uL (2.0-7.7); Basophil# 0.08 X10^3/uL; Basophil% 0.9 % (0-1); Eosinophils% 4.3 % (0-5); Hematocrit 32.7 % (37-47); Hemoglobin 10.9 g/dL (12.0-15.0); Lymphocyte # 1.68 X10^3/ul (4.0); Mean Corp Hgb Conc 33.3 g/dL (32-36); Mean Corpuscular Hgb 29.9 pg (27.0-32.0); Mean Corpuscular Volume 89.6 fL (81-99); Mean Platelet Vol. 10.8 fl (6.2-12.0); Monocyte# 0.87 X10^3/uL; Monocyte% 9.3 % (0-10); NRBC Flagged by Analyzer 0 % (0-5); Neutrophil # 5.92 X10^3/uL (2.7-7.7); Neutrophil % 63.2 % (47-70); Platelet Count 267 K/mm3 (150-450); RBC Distribution Width CV 14.1 % (11.6-14.6); Red Blood Count 3.65 M/mm3 (4.2-5.4); White Blood Count 9.4 K/mm3 (4.4-11.0)
[2020-04-11 09:13] LABS: ALB/GLOB Ratio 0.5 RATIO (0.9-2.4); AST(SGOT) 91 U/L (15-37); Alanine Aminotransfer ALT/SGPT 73 U/L (13-56); Albumin, Serum 2.4 g/dL (3.2-5.0); Alkaline Phosphatase 130 U/L (45-117); Anion Gap 8 (5-15); BUN 14 mg/dL (7-18); BUN/Creat Ratio 20.4 RATIO (10-20); Calcium,Total 8.7 mg/dL (8.5-10.1); Chloride 102 mmol/L (98-107); Creatinine, Serum 0.69 mg/dL (0.55-1.02); EST Glomerular Filtration Rate 88 mL/min (>60); Est Glom Filt Rate - Afr Amer 107 mL/min (>60); Estimated Creatinine Clearance 34.38 ml/min; Globulin 4.8 g/dL (2.2-4.2); Glucose 92 mg/dL (74-106); Potassium 3.7 mmol/L (3.5-5.1); Protein, Total 7.2 g/dL (6.4-8.2); Sodium Level 136 mmol/L (136-145)
[2020-04-11 09:14] LABS: Phosphorus 2.7 mg/dL (2.5-4.9)
[2020-04-11] MEDS: Azithromycin 250 MG Tablet 500 MG PO (10:21)
[2020-04-11] MEDS: Cefdinir 300 MG Capsule PO (10:21)
== END 2020-04-11 13:44 | disposition home or self-care (01) | DRG 308 ==
LOC: ED 15:49 → MS3 17:17
PROVIDERS: Admitting Provider Internal Medicine; Emergency Provider Emergency Medicine; PCP Family Medicine; Visit Provider Internal Medicine
DX: I48.0 Paroxysmal atrial fibrillation (principal); J18.9 Pneumonia, unspecified organism; I47.1 Supraventricular tachycardia; E78.5 Hyperlipidemia, unspecified; E03.9 Hypothyroidism, unspecified; I49.3 Ventricular premature depolarization; I10 Essential (primary) hypertension; E83.39 Other disorders of phosphorus metabolism
CPT/HCPCS: 36415; 71045; 71046; 80048; 80053; 80069; 81001; 83605; 83735; 84100; 84484; 85025; 85610; 85730; 87040; 87070; 87205; 87449; 87635; 87641; 93005; 99251; 99285; J7030; A4216; G0463; J0696; J2405; U0003

== ENCOUNTER → 2020-05-18 10:56 | Outpatient (CLI) | payer MEDICARE, OTHER, SELFPAY ==
[2020-04-27 09:56] VITALS: BMI 25.7
--- NOTE | 2020-05-18 10:56 | ECHOD_ITS ---
Reason For Study: Arrhythmia Procedure This was a 2D Doppler, Color Flow transthoracic echocardiogram. Exam performed in department. Left Ventricle Normal LV size. Left ventricular systolic function is normal. The estimated ejection fraction is 65 %. Stage 1 diastolic dysfunction. No regional wall motion abnormalities noted. Right Ventricle Normal RV size. Normal systolic function. Atria Normal left atrium. Normal right atrium. Mitral Valve Normal mitral valve. Tricuspid Valve Normal tricuspid valve. Mild (1+) tricuspid valve insufficiency. Aortic Valve Normal aortic valve. Trisinus/trileaflet aortic valve. Pulmonic Valve Normal pulmonic valve. Great Vessels Normal aortic root. The pulmonary artery is normal size. Inferior vena cava collapse with respiration. Pericardium/Pleural No pericardial effusion. MMode/2D Measurements & Calculations LVIDd: 4.0 cm IVSd: 0.81 cm Ao root diam: 3.2 cm LVIDs: 2.2 cm LVPWd: 1.0 cm RVDd: 3.0 cm FS: 43.4 % LAV(MOD-bp): 32.5 ml LA A4 area: 13.5 cm2 LA dimension(2D): 3.3 cm LAV(MOD-bp) Indexed: 20.6 ml/m2 LAV(MOD-sp2): 28.4 ml LAV(MOD-sp4): 33.1 ml RA A4 area: 13.8 cm2 Doppler Measurements & Calculations MV E max shaun: 77.2 cm/sec Lat Peak E' Shaun: 5.4 cm/sec Med Peak E' Shaun: 4.3 cm/sec MV A max shaun: 92.3 cm/sec E/E' lat: 14.4 E/E' med: 18.1 MV E/A: 0.84 Ao V2 max: 144.8 cm/sec LV V1 max: 122.3 cm/sec PA V2 max: 89.4 cm/sec Ao max P.4 mmHg LV V1 max P.0 mmHg TR max shaun: 212.8 cm/sec TR max P.1 mmHg Interpretation Summary Normal LV size. Left ventricular systolic function is normal. The estimated ejection fraction is 65 %. Stage 1 diastolic dysfunction. Ordering Physician: Radha Siddiqi/Luca Mcallister Referring Physician: Blaise Red Performed By: Leeann Malone RDCS
== END ==
PROVIDERS: PCP Family Medicine; Referring Provider Physician Assistant Medical; Visit Provider Physician Assistant Medical
DX: I48.0 Paroxysmal atrial fibrillation (principal)
CPT/HCPCS: 93306

== ENCOUNTER → 2020-06-18 14:20 | Outpatient (CLI) | payer MEDICARE, OTHER, SELFPAY ==
[2020-06-07 10:36] VITALS: BMI 25.7
[2020-06-18 17:55] LABS: T4 Free Direct 1.25 ng/dL (0.76-1.46); Thyroid Stim Hormone (TSH) 1.82 uIU/mL (0.358-3.74)
== END ==
PROVIDERS: PCP Family Medicine; Visit Provider Family Medicine
DX: E03.9 Hypothyroidism, unspecified (principal)
CPT/HCPCS: 36415; 84439; 84443

== ENCOUNTER → 2020-08-15 10:49 | Outpatient (CLI) | payer MEDICARE, OTHER, SELFPAY ==
[2020-06-07 10:36] VITALS: BMI 25.7
--- NOTE | 2020-08-15 10:53 | US_ITS ---
HISTORY: RUQ PAIN COMPARISON: None TECHNIQUE: Sonographic images of the right upper quadrant of the abdomen using grayscale and color Doppler imaging. Number of images including paperwork: 87 FINDINGS: LIVER: Unremarkable. Right lobe measures 15.5 cm. GALLBLADDER: No gallstones. No significant gallbladder wall thickening. Sonographic Mahan's sign not elicited per the veterinary radiologist. BILE DUCTS: No significant biliary dilatation. CBD 2.8 mm. PANCREAS: Unremarkable visualized pancreas. Tail partially obscured by bowel gas. RIGHT KIDNEY: Unremarkable, 10.9 cm. AORTA: Unremarkable visualized portions of the aorta. INFERIOR VENA CAVA: Unremarkable visualized portions of the inferior vena cava. FREE FLUID: None detected. US/Abdomen Limited IMPRESSION: No acute abdominal abnormality is sonographically apparent. at [id number] Reported and signed by: Nasra Springer MD Electronically Signed: Nasra Springer MD at 4:58 EDT Tel , Service support ,
== END ==
PROVIDERS: PCP Family Medicine; Referring Provider Family Medicine; Visit Provider Family Medicine
DX: R10.11 Right upper quadrant pain (principal)
CPT/HCPCS: 76705

== ENCOUNTER → 2020-08-24 10:19 | Outpatient (CLI) | payer MEDICARE, OTHER, SELFPAY ==
[2020-06-07 10:36] VITALS: BMI 25.7
--- NOTE | 2020-08-24 10:22 | NM_ITS ---
CLINICAL: 75-year-old female with reported history of postprandial right upper quadrant abdominal pain. RADIONUCLIDE HEPATOBILIARY SCINTIGRAPHY COMPARISON: Abdominal ultrasound report 08/15/2020 FINDINGS: Following the intravenous administration of 5.1 mCi of 99m Tc Mebrofenin, hepatobiliary images reveal: 1. Relatively prompt and homogeneous radiopharmaceutical concentration is noted by a normal sized liver. No parenchymal defects are identified. 2. Gallbladder activity is identified at 15 minutes post radiopharmaceutical administration. 3. Small intestinal tract is observed at 45 minutes following tracer injection. 4. Washout of the radiopharmaceutical by the hepatic parenchyma appears qualitatively normal. Cholecystokinin (0.02 ug/kg) was administered intravenously over a 30-minute period. The post CCK gallbladder ejection fraction calculated at 20 minutes following Cholecystokinin administration was noted to be 92.0 % (normal greater than 35%). During 30 minutes of post CCK imaging, there is no scintigraphic evidence of reflux of the radiotracer into the common hepatic duct or refilling of the gallbladder. [place]/Hepatobilliary Img w/Pharm Int IMPRESSION: 1. NORMAL 99m Tc Mebrofenin hepatobiliary imaging examination with Cholecystokinin. A. A gallbladder ejection fraction calculated to be greater than 35% following the administration of Cholecystokinin makes the probability of functional hepatobiliary disease (gallbladder and/or sphincter of Oddi dyskinesia) and/or organic hepatobiliary disease (chronic acalculous cholecystitis and/or cystic duct syndrome) to be low. (Christina Santana et al, Journal of Nuclear Medicine 32:1695, 1991). Electronically Signed: Mesfin Quinones DO at 20:53 EDT Tel , Service support ,
== END ==
PROVIDERS: PCP Family Medicine; Referring Provider Family Medicine; Visit Provider Family Medicine
DX: R10.11 Right upper quadrant pain (principal)
CPT/HCPCS: 78227; A9537; J2805

== ENCOUNTER 2020-09-26 07:30 | Day surgery (SDC) | payer MEDICARE, OTHER, SELFPAY ==
[2020-08-29 10:00] VITALS: BMI 24.8
[2020-09-26 07:49] VITALS: BP 159/98; PULSE 58; RESP 16; TEMP 36.9; O2SAT 98; BMI 24.9
[2020-09-26] MEDS: Lactated Ringers 1,000 ML 75 ML IV (08:04)
[2020-09-26 08:20] VITALS: BP 122/63; BP 159/98; PULSE 77; RESP 16; TEMP 36.6; O2SAT 95
--- NOTE | 2020-09-26 08:21 | OP.EGD_ITS ---
Patient Name: Kathy Melchor Procedure Date: 09/26/2020 7:59 AM Date of : 1945 Age: 75 Procedure: Upper GI endoscopy Indications: Abdominal pain in the right upper quadrant Providers: Noé Florentino MD Referring MD: Blaise Red Medicines: See the Anesthesia note for documentation of the administered medications Patient Profile: This is a 75 year old female. Refer to note in patient chart for documentation of history and physical. Complications: No immediate complications. Procedure: Pre-Anesthesia Assessment: - Prior to the procedure, a History and Physical was performed, and patient medications and allergies were reviewed. The patient's tolerance of previous anesthesia was also reviewed. The risks and benefits of the procedure and the sedation options and risks were discussed with the patient. All questions were answered, and informed consent was obtained. Prior Anticoagulants: The patient has taken no previous anticoagulant or antiplatelet agents. ASA Grade Assessment: II - A patient with mild systemic disease. After reviewing the risks and benefits, the patient was deemed in satisfactory condition to undergo the procedure. After obtaining informed consent, the endoscope was passed under direct vision. Throughout the procedure, the patient's blood pressure, pulse, and oxygen saturations were monitored continuously. The Endoscope was introduced through the mouth, and advanced to the second part of duodenum. The upper GI endoscopy was accomplished without difficulty. The patient tolerated the procedure well. Scope In: 8:11:44 AM Scope Out: 8:15:37 AM Total Procedure Duration Time 0 hours 3 minutes 53 seconds Findings: The examined esophagus was normal. No biopsies or other specimens were collected for this exam. Z-line was at 39 cm. She had a very small hiatal hernia. Localized mild inflammation characterized by erythema and granularity was found in the prepyloric region of the stomach. Biopsies were taken with a cold forceps for Helicobacter pylori testing. The examined duodenum was normal. Biopsies for histology were taken with a cold forceps for evaluation of celiac disease. Impression: - Normal esophagus. No specimens collected. - Gastritis. Biopsied. - Normal examined duodenum. Biopsied. Recommendation: - Await pathology results. - Repeat upper endoscopy (date not yet determined) for surveillance. - Telephone my office for pathology results in 1 week. If the biopsy results are negative we will proceed with a CAT scan. If the CAT scan is negative we will proceed with an MRCP. - Continue present medications. Procedure Code(s): --- Professional --- 16462, Esophagogastroduodenoscopy, flexible, transoral; with biopsy, single or multiple Diagnosis Code(s): --- Professional --- K29.70, Gastritis, unspecified, without bleeding R10.11, Right upper quadrant pain CPT copyright 2017 [employer]. All rights reserved. The codes documented in this report are preliminary and upon bow stapler review may be revised to meet current compliance requirements. MD Noé Ybarra MD 09/26/2020 8:21:21 AM This report has been signed electronically. Number of Addenda: 0 Note Initiated On: 09/26/2020 7:59 AM
--- NOTE | 2020-09-26 08:21 | OP.CCLET_ITS ---
09/26/2020 Blaise Red Re : Upper GI endoscopy procedure for Kathy Red This procedure was performed on Saturday, September 26, 2020. My impressions and recommendations are as follows: Impressions : - Normal esophagus. No specimens collected. - Gastritis. Biopsied. - Normal examined duodenum. Biopsied. Recommendations : - Await pathology results. - Repeat upper endoscopy (date not yet determined) for surveillance. - Telephone my office for pathology results in 1 week. If the biopsy results are negative we will proceed with a CAT scan. If the CAT scan is negative we will proceed with an MRCP. - Continue present medications. My findings are described in the full procedure note, which is enclosed. If I can be of further assistance, please feel free to contact me at Doctor phone number(s): , Fax: [phone], Work: . Sincerely, MD Noé Ybarra MD 09/26/2020 8:21:21 AM This report has been signed electronically.
[2020-09-26 08:25] VITALS: BP 120/58; BP 159/98; PULSE 75; RESP 18; O2SAT 93
[2020-09-26 08:30] VITALS: BP 127/66; BP 159/98; PULSE 79; RESP 18; O2SAT 98
--- NOTE | 2020-09-26 08:30 | EGD_PTH ---
PATIENT: BRADLEY HERNANDEZ LOC: EN U#:[id number] AGE/SX: 75/F ROOM: RE09/26/[address]: Dr. Noé Florentino MD : 1945 BED: DIS: 09/26/2020 SPEC #: [id number] RECD: 09/26/20 12:13 STATUS: CHRISTY PILAR #: [id number] DINA: 09/26/20 08:[address]: Noé Florentino DEPT: SURGICAL PATHOLOGY RECD BY: Vanda Hodges ENTERED: 09/26/20 13:32 SP TYPE: EGD BIOPSY OT DR: Dr. Blaise Red MD Tissues: A - Small intestine biopsy B - Gastric mucous membrane Procedures: Surgery Specimen Level IV HEADER OPERATION: [place] [place] DIAGNOSIS: Right upper quadrant abdominal pain TISSUE SUBMITTED: A - Small intestine biopsy, B - Antrum biopsy for histo and H. pylori MICROSCOPIC DIAGNOSIS A. Small intestine, biopsy: A fragment of small intestinal mucosa, no pathologic diagnosis. B. Antrum, biopsy: Mild gastritis. See microscopic description and comment. ADRIANO:tg 09/28/20 COMMENT B. The results of immunohistochemistry for Helicobacter pylori will be reported separately ([id number]). MICROSCOPIC DESCRIPTION Slides are reviewed. B. The specimen shows fragments of gastric mucosa with chronic inflammatory cell infiltrates in the lamina propria consisting of lymphocytes and plasma cells, consistent with mild chronic gastritis. GROSS DESCRIPTION A - Received in fixative is one container labeled with the patient's name and designated small intestine biopsy. The specimen consists of one irregular fragment of light acevedo soft tissue that measures 0.3 x 0.3 x 0.1 cm. The specimen is totally submitted in one cassette. B -Received in fixative is one container labeled with the patient's name and designated antrum biopsy. The specimen consists of two irregular fragments of light acevedo soft tissue that in aggregate measure 0.5 x 0.2 x 0.1 cm. The specimen is totally submitted in one cassette. / ADRIANO:tg 09/26/20 TC:5 CPT: 92794 x2
--- NOTE | 2020-09-26 08:30 | IMM_PTH ---
PATIENT: BRADLEY HERNANDEZ LOC: EN U#:[id number] AGE/SX: 75/F ROOM: RE09/26/[address]: Dr. Noé Florentino MD : 1945 BED: DIS: 09/26/2020 SPEC #: [id number] RECD: 09/26/20 13:27 STATUS: CHRISTY REQ #: [id number] DINA: 09/26/20 08:[address]: Noé Florentino DEPT: IMMUNOHISTOCHEMISTRY RECD BY: Flower Fleming ENTERED: 09/26/20 13:27 SP TYPE: IMMUNO OTHR DR: Dr. Blaise Red MD Tissues: B - Stomach, NOS Procedures: H Pylori (initial) PHYSICIAN & INSTITUTION [place] [id number] SPECIMEN INFORMATION: Tissue Source: B - Antrum biopsy Clinical Info: Right upper quadrant abdominal pain Specimen Number: [id number] CPT code: 18302 METHODOLOGY: Deparaffinized sections of prefer/formalin-fixed tissue or PAP/DQ stained slides are incubated with monoclonal/polyclonal antibodies/oligonucleotide probes. Localization is made via biotin free immunoperoxidase method. Appropriate controls are performed and reacted as expected. Results on target cell population are indicated in the following table: RESULTS: ANTIBODY / CLONE RESULT Block B H Pylori (polyclonal) negative These tests were developed and their performance characteristics determined by [facility]. They may not have been cleared or approved by the U.S. Food and Drug Administration. The FDA has determined that such clearance or approval is not necessary. INTERPRETATION: B. Antrum, biopsy: Negative for Helicobacter pylori organisms. SJ:tg 09/28/20
[2020-09-26 08:35] VITALS: BP 123/69; BP 159/98; PULSE 69; RESP 18; TEMP 36.4; O2SAT 97
[2020-09-26 08:48] VITALS: BP 159/98
--- NOTE | 2020-09-26 10:00 | HP_ITS ---
Intake Vital Signs 08/29/20 Height 5 ft 1 in 08/29/20 Weight: 131 lb 6 oz 08/29/20 BP 138/77 H 08/29/20 Blood Pressure Location Rt brachial 08/29/20 Position Sitting 08/29/20 Respiration 20 H 08/29/20 Pulse 68 08/29/20 Pulse Source NIBP 08/29/20 Temp 97.8 F 08/29/20 Temp Source Temporal 08/29/20 Pulse Oximetry (%) 98 08/29/20 Oxygen Delivery Method room air Intake Visit Reasons: RIGHT UPPER QUADRANT PAIN Chief Complaint: RUQ pain Behavioral Health Tech Required: No Is patient in pain?: No Allergies Penicillins Allergy (Severe, Verified 08/29/20 10:01) Hives adhesive Allergy (Verified 08/29/20 10:01) Rash ampicillin Allergy (Verified 08/29/20 10:01) Rash diltiazem HCl [From Cardizem] Allergy (Verified 08/29/20 10:01) Hives morphine Adverse Reaction (Verified 08/29/20 10:01) hypotension Medications Aspirin [Aspirin, Baby] 81 mg PO DINNER 05/02/14 [History Confirmed 06/07/20] Calcium Carbonate/Vitamin D3 [Calcium 600-Vit D3 800 Tablet] 1 ea PO SUTUTHSA 05/02/14 [History Confirmed 08/29/20] Levothyroxine [Synthroid] 50 mcg PO DAILY 05/02/14 [History Confirmed 08/29/20] Multivitamins,Therapeutic [Multivitamin] 1 tab PO DAILY 05/02/14 [History Confirmed 08/29/20] [place]-3 Fatty Acids/Fish Oil [[place] 3 Fish Oil Softgel] 1 ea PO DAILY 05/02/14 [History Confirmed 08/29/20] cholecalciferol (vitamin D3) 10 mcg (400 unit) capsule 400 unit PO QODAY 11/01/17 [History Confirmed 08/29/20] Melatonin 5 mg PO QHS 10/18/18 [History Confirmed 08/29/20] Acetaminophen [Tylenol Tablet] 650 mg PO Q4H PRN PRN tab 10/20/18 [Rx Confirmed 08/29/20] magnesium oxide 500 mg tablet 500 mg PO DAILY 06/07/20 [History Confirmed 08/29/20] apixaban 5 mg tablet 5 mg PO BID #180 tab 06/20/20 [Rx Confirmed 08/29/20] metoprolol tartrate 25 mg tablet 50 mg PO BID tab 08/29/20 [History Confirmed 08/29/20] Is last menstrual period known: No Post menopausal: Yes Patient : No PFSH Medical History Paroxysmal atrial tachycardia (Chronic) Hyperlipidemia (Chronic) Back pain (Acute) Hemorrhoids (Chronic) Hypothyroidism (Chronic) Edema (Resolved) Right shoulder pain (Resolved) Heart disease (Inactive) Nonrheumatic mitral (valve) insufficiency (Inactive) Surgical History History of colonoscopy (Acute ~2013) History of appendectomy (Resolved) History of hysterectomy (Resolved) Family History Father , at age 102 Hypertension Myocardial infarction Pacemaker Cardiac arrhythmia Mother , age 74 Alzheimer's dementia Brother Hypertension Pulmonary hypertension ALS (amyotrophic lateral sclerosis) Sister Hypertension Hyperlipidemia Pulmonary embolism Social History (Updated 08/29/20 @ 10:[address] Noé Florentino MD) Smoking Status: Never smoker alcohol intake: never HPI HPI Surgical H&P: Yes HPI: BRADLEY HERNANDEZ, is a 75 F who presents to the office today for Evaluation for endoscopy. Patient has been having right upper quadrant Abdominal pain with bloating over the last 6 months. It happens randomly usually daily she has had a work-up that included a HIDA scan with ejection fraction which showed her ejection fraction to be 92%. She has had a gallbladder ultrasound which showed no gallstones no bowel wall thickening no pericholecystic fluid and the common bile duct was 2.8 mm. Patient states that when it happens it feels like a hard lump in the right upper quadrant it is not associated with any certain foods. She states that she has had an increased amount of burping at times. ROS General General: No weight change, appetite, fatigue, colon cancer, breast cancer or weakness HEENT HEENT: No difficulty swallowing, eye injury, eye surgery, swollen glands or hoarseness Endo Endocrine: Yes thyroid disease; no diabetes mellitus, thyroid cancer, Hair loss, heat intolerance or cold intolerance Musc Musculoskeletal: Yes back problems; no arthritis, rheumatoid arthritis, gout or joint pain Cardio Cardiovascular: Yes heart disease, atrial fibrillation and high blood pressure; no murmur, pacemaker, heart attack, heart stent, palpitations, shortness of breat with exertion or chest pain Psych Psychiatric: No depression, anxiety or hearing voices Resp Respiratory: No shortness of breath, No sleep apnea, No cough, No COPD, No asthma, No emphysema, No wheezing Gastro Gastrointestinal: Yes abdominal pain, No nausea or vomiting, No diarrhea, No constipation, No blood in stool, No acid reflux, Yes hemorrhoids, No ulcers, Yes gallbladder problem, No black,tarry stools Bal Hematologic: Yes blood thinners, No blood disorders, No bleeding, No anemia, No blood clots Neuro Neurologic: No weakness Exam Const General: no acute distress, well developed, well hydrated Orientation: oriented to person, oriented to place, oriented to time [facility] Head: normocephalic, atraumatic Ears: external ears normal Mouth: moist mucous membranes Eyes Sclera: sclerae normal Pupils: normal by confrontation Neck Neck: no lymphadenopathy noted Neck mass: No Thyroid: thyroid normal, symmetrical Chest Chest palpation & inspection: normal inspection of the chest Resp Effort & Inspection: normal respiratory effort Auscultation: clear to auscultation bilaterally Percussion: percussion normal Cardio Rate: regular rate Rhythm: regular rhythm Heart Sounds: no murmurs GI Palpation: soft, no hepatosplenomegaly, no masses, nontender Rectal Exam: other Other: Rectal exam deferred. Extrem General: normal to inspection, no clubbing, cyanosis or edema Assessment & Plan Problems 1. Right upper quadrant abdominal pain R10.11 Plan I have discussed the above with the patient. I have offered the patient esophagogastroduodenoscopy for evaluation. I have explained the risks/benefits of the procedure and described the procedure. I have discussed the risks with the patient, including but not limited to: infection, bleeding, perforation of the GI tract requiring emergency surgery, inability to complete the procedure, injury to any internal organs, complications of anesthesia, etc. - the patient understands and agrees to proceed. I have answered all the patient's questions to the patient's satisfaction and the patient has no further questions. The patient has been given instructions for the colon cleansing preparation. If this is negative then she will need to have a CAT scan of her abdomen and pelvis with IV and p.o. contrast.And if the CAT scan is negative then she will probably need to have an MRCP done. Coding Level of Care Code Off vis,new,level 3 Diagnoses Right upper quadrant abdominal pain R10.11 COVID (Procedure Consent) Procedure Criteria Procedure Criteria: Yes Elective The surgeon/proceduralist and patient have discussed in detail the risk of exposure to and/or potential harm posed by the COVID-19 virus with having a surgery/procedure at this time versus the risk of? delaying the surgery/procedure. It is not possible to know either the risk of delaying the surgery or procedure or chance of getting an infection with perfect accuracy, but a joint decision was made between the patient and the surgeon/proceduralist ?to proceed at this time with the scheduled surgery/procedure as indicated on the consent form. I have re-examined the patient. There are no clinical changes since date of exam.
== END 2020-09-26 09:08 | disposition home or self-care (01) ==
LOC: EN 07:30 → AC 07:30
PROVIDERS: PCP Family Medicine; Referring Provider Family Medicine; Visit Provider Surgery
PROC: 0DJ08ZZ Inspection of Upper Intestinal Tract, Via Natural or Artificial Opening Endoscopic (ICD-10-PCS; CPT 43235; principal; 2020-09-26 08:25)
DX: K29.70 Gastritis, unspecified, without bleeding (principal); I48.0 Paroxysmal atrial fibrillation; I10 Essential (primary) hypertension; E78.5 Hyperlipidemia, unspecified; E03.9 Hypothyroidism, unspecified; I47.1 Supraventricular tachycardia; Z79.01 Long term (current) use of anticoagulants; Z20.828 Contact with and (suspected) exposure to other viral communicable diseases; Z79.82 Long term (current) use of aspirin; Z79.899 Other long term (current) drug therapy
CPT/HCPCS: 43239; 87426; 88305; 88342; C9803; J7120; J2405

== ENCOUNTER → 2020-10-11 15:53 | Outpatient (CLI) | payer MEDICARE, OTHER, SELFPAY ==
[2020-09-26 07:49] VITALS: BMI 24.9
--- NOTE | 2020-10-11 15:55 | CT_ITS ---
STUDY: CT ABDOMEN AND PELVIS WITH CONTRAST REASON FOR EXAM: Female, 75 years old. Right-sided abdominal pain for one year. History of hysterectomy and appendectomy. RADIATION DOSAGE (If Supplied By Facility): CTDIvol = ( 12.25 ) mGy, DLP = ( 479.91 ) mGycm TECHNIQUE: Transaxial images were obtained from the dome of the diaphragm to the symphysis pubis with oral contrast. 100mL Isovue-300 was administered. Sagittal and coronal images were reconstructed. Individualized dose optimization techniques were used for this CT. COMPARISON: Abdominal ultrasound, 08/15/2020. FINDINGS: The visualized lung bases are unremarkable. The visualized portions of the heart are within normal limits. There is elongation of the right lobe of the liver consistent with a Michael''s lobe. There are small cyst in segment 8 of the liver. There is no enhancing mass. Normal gallbladder and extrahepatic biliary system. Normal spleen. Normal pancreas. Normal bilateral adrenal glands. Normal right kidney. There is a small cortical cyst in the mid left kidney. Left kidney is otherwise unremarkable. Probable bilateral ureters. Normal visualized stomach. Normal small intestine. There is scattered colonic diverticuli without acute inflammatory change. There is non-visualization of the appendix. There is diffuse atherosclerotic calcification of the abdominal aorta, without a demonstrated aneurysm. Normal inferior vena cava. Normal retroperitoneum. There is evidence of bladder prolapse into the vaginal vault. Urinary bladder is otherwise unremarkable. There is no pelvic lymphadenopathy. No free air or free fluid is seen within the peritoneal cavity. Normal abdominal wall. There are diffuse degenerative changes and mild dextroscoliosis of the visualized lumbar spine. There is anterolisthesis of L4 on L5 without pars defects. CT/Abdomen/Pelvis WITH Contrast IMPRESSION: 1. Michael''s lobe of the liver. Small cysts are seen in the dome of the right liver without other abnormality. 2. Evidence of bladder prolapse without other evidence of urinary bladder abnormality. 3. Degenerative changes and dextroscoliosis of the lumbar spine. There is anterolisthesis of L4 and L5. 4. Colonic diverticulosis without acute inflammatory change. . Electronically Signed: Avinash Lang DO at 16:38 EST Tel [phone], Service support ,
[2020-10-11 16:21] LABS: CREATININE FINGERSTICK 1.3 mg/dL (0.55-1.02)
== END ==
PROVIDERS: PCP Family Medicine; Referring Provider Surgery; Visit Provider Surgery
DX: R10.11 Right upper quadrant pain (principal)
CPT/HCPCS: 74177; Q9967

== ENCOUNTER → 2020-11-22 14:11 | Outpatient (CLI) | payer MEDICARE, OTHER, SELFPAY ==
[2020-11-06 09:43] VITALS: BMI 25.7
[2020-11-22 18:27] LABS: AST(SGOT) 20 U/L (15-37); Alanine Aminotransfer ALT/SGPT 24 U/L (13-56); Albumin, Serum 3.7 g/dL (3.2-5.0); Alkaline Phosphatase 72 U/L (45-117); Anion Gap 7 (5-15); BUN 24 mg/dL (7-18); BUN/Creat Ratio 24.1 RATIO (10-20); Calcium,Total 9.3 mg/dL (8.5-10.1); Chloride 107 mmol/L (98-107); EST Glomerular Filtration Rate 58 mL/min (>60); Est Glom Filt Rate - Afr Amer 70 mL/min (>60); Globulin 3.8 g/dL (2.2-4.2); Glucose 80 mg/dL (74-106); Potassium 3.9 mmol/L (3.5-5.1); Protein, Total 7.5 g/dL (6.4-8.2); Sodium Level 138 mmol/L (136-145)
== END ==
PROVIDERS: PCP Family Medicine
DX: R10.11 Right upper quadrant pain (principal)
CPT/HCPCS: 36415; 80053

== ENCOUNTER → 2020-12-27 16:49 | Outpatient (CLI) | payer MEDICARE, OTHER, SELFPAY ==
[2020-11-06 09:43] VITALS: BMI 25.7
--- NOTE | 2020-12-27 16:54 | MRI_ITS ---
STUDY: MR CHOLANGIOPANCREATOGRAPHY (MRCP); MRI ABDOMEN WITHOUT IV CONTRAST REASON FOR EXAM: Female, 75 years old. Abdominal pain TECHNIQUE: Standard MRCP technique was utilized. Three-dimensional reconstruction images performed of the biliary system at an independent workstation and reviewed at time of dictation. . Multiphase MRI performed without IV contrast. Limited by motion artifact. COMPARISON: None. FINDINGS: MRCP: Gall Bladder: Normal with no distention or demonstrated fixed intraluminal filling defect. Cystic duct: Normal with no demonstrated fixed filling defect. Intrahepatic ducts: Normal visualized intrahepatic ducts with no demonstrated fixed filling defect, dilation or stricture. Common hepatic duct: Normal with no demonstrated fixed filling defect, dilation or stricture.. Common hepatic duct measures 6.7 mm. Common bile duct: There is smooth tapering of the mid common duct measuring approximately 2.4 cm (image 15 series 11) with essentially nonvisualization of the lower common duct. Upper common duct measures 8 mm. Pancreatic duct: Normal with no demonstrated fixed filling defect, dilation or stricture.. Pancreatic duct measures 1.5 mm. MRI abdomen without and with IV contrast: Visualized base of the chest is unremarkable. The visualized portions of the heart are within normal limits. Normal liver. Normal spleen. There is mild prominence of the pancreatic head although a discrete mass is not seen. Limited evaluation without IV contrast. Normal bilateral adrenal glands. Normal right kidney. T2 bright cortical cyst of the left kidney without obvious septations or mural nodularity. Benign, incidental finding; no specific imaging workup recommended according to current ACR guidelines. Visualized hollow viscus structures are grossly unremarkable. The appendix is not visualized. No retroperitoneal adenopathy. No bone marrow edema. MRI/MRCP Abdomen without Contrast IMPRESSION: 1. Nonvisualization of the distal most (within pancreatic head) common duct with tapering of the mid-distal common duct. Overall similar appearance since prior CT. May suggest extrinsic compression from either pancreatitis (no peripancreatic edema) or pancreatic mass (discrete mass is not seen although limited without IV contrast and by patient motion artifact). ERCP/endoscopic ultrasound recommended. 2. Hepatic masses. 3. Mild fullness of the pancreatic head without discrete necrotic mass. Electronically Signed: Thomas Swain MD ([place]) at 8:37 EST , Service support ,
== END ==
PROVIDERS: PCP Family Medicine; Referring Provider Surgery; Visit Provider Surgery
DX: R10.11 Right upper quadrant pain (principal)
CPT/HCPCS: 74181

== ENCOUNTER → 2021-01-18 09:54 | Outpatient (CLI) | payer MEDICARE, OTHER, SELFPAY ==
[2020-11-06 09:43] VITALS: BMI 25.7
--- NOTE | 2021-01-18 10:19 | BI_ITS ---
MAMMOGRAPHY - BILATERAL SCREENING REASON FOR EXAM: Female, 75 years old. Routine annual screening examination. PERTINENT HISTORY: Sister with breast cancer. Grandmother with breast cancer. Aunt with breast cancer. TECHNIQUE: Digital bilateral breast rogelio (3D mammographic acquisition) in the CC and MLO projections. 2-D mediolateral oblique (MLO) and craniocaudad (CC) views of both breasts were obtained. CAD: Full Field Digital Mammography with Computer Added Detection was performed. COMPARISON: Comparison is made with prior examination dated 01/11/2020 and 01/07/2019. FINDINGS: Breast Composition: The breasts are heterogeneously dense, which may obscure small masses. There are no dominant masses or suspicious calcifications. No other significant abnormalities are identified. There has been no significant change since the prior study. BI/SCRN MAMM (CAD)W/ROGELIO BILAT IMPRESSION: Stable bilateral screening mammogram. Yearly follow-up mammogram recommended. (A) ASSESSMENT CATEGORY: BIRADS Category 1: Negative. A letter regarding these results will be sent to the patient by the facility within 30 days. Approximately 10% of breast cancers are not detected by mammography. A normal mammogram should not delay biopsy of a clinically suspicious abnormality. [id number] Electronically Signed: Adin Qureshi MD at 12:55 EDT , Service support ,
== END ==
PROVIDERS: PCP Family Medicine; Referring Provider Family Medicine; Visit Provider Family Medicine
DX: Z12.31 Encounter for screening mammogram for malignant neoplasm of breast (principal)
CPT/HCPCS: 77063; 77067

== ENCOUNTER 2021-03-26 11:55 | Observation (INO) | payer MEDICARE, OTHER, SELFPAY ==
[2020-11-06 09:43] VITALS: BMI 25.7
[2021-03-26] VITALS (15 sets, daily range): BP systolic 107–174; BP diastolic 56–98; PULSE 62–94; RESP 14–40; TEMP 36.4–37.1; O2SAT 93–100; BMI 26.0; BMI 24.5
--- NOTE | 2021-03-26 12:06 | EKG12_ITS ---
Test Reason : PALPATATIONS Blood Pressure : / mmHG Vent. Rate : 073 BPM Atrial Rate : 073 BPM P-R Int : 178 ms QRS Dur : 076 ms QT Int : 422 ms P-R-T Axes : 046 -19 -04 degrees QTc Int : 464 ms Sinus rhythm with Premature atrial complexes Otherwise normal ECG Confirmed by EMILY WOLFE, HANNAH ([id number]), editor in chief newspaper LELE GUSTAFSON ([id number]) on 03/28/2021 11:11:45 AM Referred By: CAMILO Confirmed By:HANNAH DIAZ MD
--- NOTE | 2021-03-26 12:10 | EDS_ITS ---
HPI History of Present Illness Chief Complaint: Palpitations Detail of Chief Complaint: Lightheaded and nausea Informant: patient Onset/Context/Timing Onset: Today Context: Sudden Onset Current Severity: Mild Maximum Severity: Moderate Narrative Narrative: Patient presents with rather abrupt onset of dizziness. She states she was riding in the car when she suddenly felt very lightheaded and nauseous. She asked her to loin puller. She denied chest pain or palpitations. She does have a history of paroxysmal A. fib and PACs, but states this felt different. She denies headache. She denies any numbness or tingling in her arms or legs. [facility] Medical History (Updated 03/26/21 @ 14:[address] Divine Kellogg MD) Back pain Edema Gastritis Heart disease Hemorrhoids Hyperlipidemia Hypothyroidism Nonrheumatic mitral (valve) insufficiency Paroxysmal atrial fibrillation (04/2020) Paroxysmal atrial tachycardia Premature ventricular contractions Right shoulder pain Home Medications levothyroxine 50 mcg PO DAILY 05/02/14 [History Last Taken 03/26/21] multivitamin with folic acid 1 tab PO DAILY 05/02/14 [History Last Taken 03/25/21] metoprolol tartrate 25 mg tablet 12.5 mg PO BID tab 08/29/20 [History Last Taken 03/26/21] apixaban 5 mg tablet 5 mg PO BID #180 tab 11/06/20 [Rx Last Taken 03/26/21] Bifidobacterium infantis [Align] 4 mg PO DAILY 03/26/21 [History Last Taken 03/26/21] Allergy/AdvReac Type Severity Reaction Status Date / Time Penicillins Allergy Severe Hives Verified 03/26/21 11:56 adhesive Allergy Rash Verified 03/26/21 11:56 ampicillin Allergy Rash Verified 03/26/21 11:56 diltiazem HCl [From Cardizem] Allergy Hives Verified 03/26/21 11:56 morphine AdvReac hypotension Verified 03/26/21 11:56 Family History Father , at age 102 Hypertension Myocardial infarction Pacemaker Cardiac arrhythmia Mother , age 74 Alzheimer's dementia Brother Hypertension Pulmonary hypertension ALS (amyotrophic lateral sclerosis) Sister Hypertension Hyperlipidemia Pulmonary embolism Surgical History History of appendectomy History of colonoscopy (2013) History of esophagogastroduodenoscopy (EGD) (09/26/20) History of hysterectomy Social History Smoking Status: Never smoker alcohol intake: never ROS ROS ED Constitutional Constitutional ED: Denies chills or fever(s) Eyes Eyes: Denies change in vision ENT ENT ED: Denies sore throat Cardiovascular Cardiovascular: Denies chest pain Respiratory/Chest Respiratory/Chest: Denies cough or dyspnea Gastrointestinal Gastrointestinal: Reports nausea; Denies abdominal pain, diarrhea or vomiting Genitourinary Genitourinary ED: Denies dysuria Musculoskeletal Musculoskeletal: Denies back pain Integumentary Denies rash Neurologic Neurologic: Denies headache(s) or weakness Psychiatric Psychiatric: Denies anxiety or depression Endocrine Endocrinology: Denies polydipsia or polyuria Allergic/Immunologic Allergic/Immunologic ED: Denies urticaria EXAM Physical Exam Const Vital Signs: 03/26/21 11:57 03/26/21 12:01 03/26/21 12:35 Temperature 97.6 F L Temperature Source Temporal Pulse Rate 71 73 Respiratory Rate 20 H 40 H Respiratory Effort Normal Non-Labored Respiratory Pattern Normal Blood Pressure 150/71 H 165/88 H Blood Pressure Mean 97 113 Pulse Ox 100 93 Oxygen Delivery Method Room Air Room Air 03/26/21 13:00 03/26/21 13:20 03/26/21 13:34 Temperature Temperature Source Pulse Rate 76 73 Respiratory Rate 32 H 14 Respiratory Effort Respiratory Pattern Blood Pressure 171/98 H 171/98 H Blood Pressure Mean 122 122 Pulse Ox 95 96 Oxygen Delivery Method Room Air Room Air Room Air Positive well nourished and well developed General Appearance ED: well developed HEENT Reports normocephalic and head/scalp atraumatic Eyes PERRL and EOMs intact bilaterally Eyes Narrative: No nystagmus Neck supple Chest Wall inspection of chest normal and palpation of chest normal Resp normal respiratory effort and clear to auscultation bilaterally Cardio regular rate and regular rhythm GI normal to inspection, nondistended, normoactive bowel sounds Palpation: soft Extremity normal to inspection Neuro oriented x3 and no sensory deficits noted Sensorium / Orientation: alert Motor Exam: strength 5/5 throughout Psych mental status grossly normal Skin no rashes or lesions noted [facility] Lab Data Attestation: I reviewed the patient's lab results. Labs: Laboratory Results - last 24 hr 03/26/21 03/26/21 03/26/21 12:30 12:30 12:35 WBC 7.4 RBC 4.56 Hgb 13.6 Hct 40.5 MCV 88.8 MCH 29.8 MCHC 33.6 RDW Std Deviation 42.3 RDW Coeff of Geno 13.0 Plt Count 184 MPV 12.5 H Immature Gran % (Auto) 0.400 Neut % (Auto) 59.0 Lymph % (Auto) 26.0 [place] % (Auto) 10.2 H Eos % (Auto) 3.5 Baso % (Auto) 0.9 Absolute Neuts (auto) 4.4 Absolute Lymphs (auto) 1.93 Nucleated RBC % 0 Sodium 137 Potassium 3.8 Chloride 104 Carbon Dioxide 23.0 Anion Gap 10 BUN 16 Creatinine 1.32 H Estim Creat Clear Calc 26.93 Est GFR (MDRD) Af Amer 50 L Est GFR (MDRD) Non-Af 42 L BUN/Creatinine Ratio 12.1 Glucose 116 H Calcium 10.0 Troponin I < 0.015 POC Glucose 111 H Radiography Diagnostic Testing: Radiology Impression Head/Neck CTA 03/26/21 12:43 IMPRESSION: 50-69% narrowing at the origin of the left internal carotid artery. Electronically Signed: Adin Qureshi MD at 14:07 EDT , Service support , Brain CT 03/26/21 12:59 IMPRESSION: No acute intracranial abnormality. Mild chronic ischemic changes. N.B. : The above information has been verbally conveyed by Wally Lopez MD to MD Valdez, on 03/26/2021 13:34:11 (ET). Electronically Signed: Wally Lopez MD at 13:35 EDT Tel , Service support , ADDENDUM: 03/26/21 1342 IMPRESSION: No acute intracranial abnormality. Mild chronic ischemic changes. N.B. : The above information has been verbally conveyed by Wally Lopez MD to MD Valdez, on 03/26/2021 13:34:11 (ET). Electronically Signed: Wally Lopez MD at 13:35 EDT Tel , Service support , EKG Initial EKG: Attestation: I personally reviewed and interpreted this EKG as follows: Interpretation: Sinus Rhythm (Sinus with PACs. No acute ischemia.) Treatment and Re-Evaluation Comments:: Patient initially describes sudden onset of lightheadedness and nausea. Lab work was initiated and patient was given Zofran. I was notified a short time later by nursing staff that patient was having more trouble with her speech. I presented to the bedside and evaluated her. Patient had extreme anxiety and had difficulty getting words out. I attempted to repeat her NIH score but she had difficulty following commands. I spoke with the neurologist [facility] who felt that he should evaluate her through the robot. Patient was sent for a noncontrast head CT. Initial plan was to get CTA head and neck but we were having difficult time obtaining adequate IV access. Noncontrast head CT is unremarkable. Nursing staff advises me that neurologist evaluated the patient and got an NIH of 0. He recommended a CTA of the head and neck and if negative should be admitted for an MRI. CTA is obtained. Patient does have some narrowing noted to the left internal carotid artery. No acute clot noted. Patient be discussed with hospitalist for admission. Her symptoms are s ignificantly improved at this time. Discharge Plan Triage Chief Complaint: Palpitations ED Provider: Divine Kellogg Dx/Rx/DC Orders Clinical Impression: Dizziness, Difficulty with speech Prescriptions: No Action Eliquis 5 mg tablet 5 mg PO BID Qty: 180 RF: 4 levothyroxine 50 MCG tablet 50 mcg PO DAILY RF: 0 multivitamin with folic acid 1 TABLET tablet 1 tab PO DAILY RF: 0 Align 4 mg Capsule 4 mg PO DAILY RF: 0 metoprolol tartrate 25 mg tablet 12.5 mg PO BID RF: 0 Primary Care Provider: Blaise Red Referrals: Blaise Red MD [Primary Care Provider] - Disposition Disposition: Acute Care [facility]
[2021-03-26] MEDS: Ondansetron 4 MG/2 ML Vial IV (12:33)
[2021-03-26 12:35] LABS: Absolute Lymphocyte Count 1.93 X10^3/uL (0.83-4.51); Absolute Neutrophil Count 4.4 X10^3/uL (2.0-7.7); Basophil# 0.07 X10^3/uL; Basophil% 0.9 % (0-1); Eosinophil# 0.26 X10^3/uL; Eosinophils% 3.5 % (0-5); Hematocrit 40.5 % (37-47); Hemoglobin 13.6 g/dL (12.0-15.0); Lymphocyte # 1.93 X10^3/ul (0.83-4.51); Mean Corp Hgb Conc 33.6 g/dL (32-36); Mean Corpuscular Hgb 29.8 pg (27.0-32.0); Mean Corpuscular Volume 88.8 fL (81-99); Mean Platelet Vol. 12.5 fl (6.2-12.0); Monocyte# 0.76 X10^3/uL; Monocyte% 10.2 % (0-10); NRBC Flagged by Analyzer 0 % (0-5); Neutrophil # 4.37 X10^3/uL (2.7-7.7); Platelet Count 184 K/mm3 (150-450); RBC Distribution Width SD 42.3 fl (35.1-43.9); Red Blood Count 4.56 M/mm3 (4.2-5.4); White Blood Count 7.4 K/mm3 (4.4-11.0)
--- NOTE | 2021-03-26 12:43 | CT_ITS ---
STUDY: CTA HEAD AND NECK WITH CONTRAST REASON FOR EXAM: Female, 76 years old. Dizzy, aphasia RADIATION DOSAGE (If Supplied By Facility): CTDIvol = ( 18.73 ) mGy, DLP = ( 567.82 ) mGycm TECHNIQUE: CT angiography was performed with a multi-detector CT scanner. Data acquisition was obtained from the skull base through the vertex following intravenous administration of IV 100mL [id number]-[id number]. MIP images were reconstructed from the axial data set. Post-processing of the angiographic images was performed, with multiplanar reformation and 3D reconstruction. Individualized dose optimization techniques were used for this CT. COMPARISON: No relevant priors. FINDINGS: Normal bilateral petrous carotid arteries. Normal right cavernous carotid artery with a normal supraclinoid bifurcation. Normal left cavernous carotid artery with a normal supraclinoid bifurcation. Normal right A1 segments of the anterior cerebral artery. Normal left A1 segments of the anterior cerebral artery. Normal intact anterior communicating artery (ACOM). Normal bilateral A2 segments of the anterior cerebral arteries. Normal right M1 and M2 segments of the middle cerebral arteries, with a normal M1 bifurcation. Normal left M1 and M2 segments of the middle cerebral arteries, with a normal M1 bifurcation. Normal right posterior communicating artery (PCOM). Normal left posterior communicating artery (PCOM). Normal bilateral vertebral arteries. Normal basilar artery with a normal basilar bifurcation. The visualized bilateral superior cerebellar (SCA) arteries are normal. Normal bilateral P1, P2 and visualized P3 segments of the posterior cerebral arteries. There is no demonstrated aneurysm of the [place]. There is no demonstrated abnormality of the visualized brain. AORTIC ARCH: Normal visualized aortic arch. Normal origins of the brachiocephalic, left common carotid, and left subclavian arteries. Minimal calcific plaque at the origin of the left subclavian artery. RIGHT CAROTID ARTERIES: Normal right common carotid artery (CCA). Normal right common carotid bulb. Minimal calcific plaque at the origin of the right internal carotid artery. Normal visualized cervical portion of the right internal carotid artery. Normal origin of the right external carotid artery (ECA). LEFT CAROTID ARTERIES: Normal left common carotid artery (CCA). Normal left common carotid bulb. There is moderate atherosclerotic plaque formation of the origin of the left internal carotid artery with an estimated stenosis of 50-69% stenosis. Normal visualized cervical portion of the left internal carotid artery. Normal origin of the left external carotid artery (ECA). VERTEBRAL ARTERIES: Normal bilateral vertebral arteries. CT/CTA Head AND Neck W/ Contrast IMPRESSION: 50-69% narrowing at the origin of the left internal carotid artery. Electronically Signed: Adin Qureshi MD at 14:07 EDT , Service support ,
[2021-03-26 12:53] LABS: Anion Gap 10 (5-15); BUN 16 mg/dL (7-18); BUN/Creat Ratio 12.1 RATIO (10-20); Chloride 104 mmol/L (98-107); Creatinine, Serum 1.32 mg/dL (0.55-1.02); EST Glomerular Filtration Rate 42 mL/min (>60); Est Glom Filt Rate - Afr Amer 50 mL/min (>60); Estimated Creatinine Clearance 26.93 ml/min; Glucose 116 mg/dL (74-106); Potassium 3.8 mmol/L (3.5-5.1); Sodium Level 137 mmol/L (136-145)
--- NOTE | 2021-03-26 12:59 | CT_ITS ---
STUDY: CT BRAIN WITHOUT CONTRAST REASON FOR EXAM: Female, 76 years old. Dizziness. Stroke alert. RADIATION DOSAGE (If Supplied By Facility): CTDIvol = ( 45 ) mGy, DLP = ( 830 ) mGycm TECHNIQUE: Transaxial CT imaging of the brain was performed without administration of intravenous contrast material. Individualized dose optimization techniques were used for this CT. COMPARISON: None. FINDINGS: There is no acute bleed or infarct. There are mild chronic ischemic changes. The ventricles are normal in configuration. There is no hydrocephalus. The visualized paranasal sinuses are clear. The mastoid air cells are well aerated. There is no skull fracture. CT/STROKE Brain/Head without Cont IMPRESSION: No acute intracranial abnormality. Mild chronic ischemic changes. N.B. : The above information has been verbally conveyed by Wally Lopez MD to MD Valdez, on 03/26/2021 13:34:11 (ET). Electronically Signed: Wally Lopez MD at 13:35 EDT Tel , Service support ,
[2021-03-26 13:01] LABS: Bedside Glucose 111 mg/dL (70-110)
--- NOTE | 2021-03-26 13:37 | ED.RN ---
Line placed in right arm with assistance of ultrasound. Blood return noted and none painful. Line was positional, but flowed with 20cc NS bolus IVP. dallas noyola rn [id number]
--- NOTE | 2021-03-26 14:31 | ED.RN ---
at approx 1235- pt began repeating self, unable to answer simple questions. glucose checked 111. MD in room for assessment- see NIH. stroke alert called at 1259. pt to CT scan. unable to get CTA d/t size of IV access. when back to room, neurology beamed in for assessment. Mild aphasia noted by RN but otherwise, negative findings. IV accesss obtained and went back for CTA- see results. remains at bedside. pt conversing easily with and staff. NIH zero. no aphasia on NIH.
--- NOTE | 2021-03-26 14:40 | CM.ED ---
SW Note Referral Source: Stroke Alert Reason for Referral: Stroke Alert SW responded to Stroke Alert. SW and extruding press operator met with patient's and provided emotional support. said that they were on the way to [place] and patient got confused so he went to [facility] and called [facility]. reports they have alot of little househould stress that is causing stress for them and said that he and will have 50th anniversary next month. SW remains available for support. Plan: Admit to PCU [facility]
--- NOTE | 2021-03-26 15:20 | CHAPLAIN ---
Type of Pastoral Visit ___ Initial Visit ___ Follow-up Visit ___ On-call Visit ___ General Patient Visit ___ Spiritual Assessment ___ Family Conference ___ Bereavement _x__ Rapid Response ___ Code Blue ___ Other (describe below) Pastoral Care Referral From ___ Patient ___ Family ___ Nurse ___ Physician ___ Funds Development Director ___ [employer] Machine Operator ___ Other (describe below) Sacrament/Intervention ___ Active listening ___ Anointing ___ Mormon ___ Bereavement ___ Communion ___ Nancy exploration ___ ___ Life review ___ Prayer ___ Reconciliation ___ Sacrament of Sick _x__ Supportive presence ___ Wedding ___ Other (describe below) Pastoral Comments came to ED for stroke alert; met with spouse of pt in the room; spouse is tearful about the condition of the pt; spouse states I am seeing signs like her mother who had dementia; pt admits his own needs due to Parkinsons and how pt worries about him too; patient returns to room from CT scan; at this time recognized the patient as one of the hospital volunteers; pt does not recognize this case assistant though she knows him and does not know that she came into the hospital though brought here by squad; SW also responded to this alert and was available to spouse;
--- NOTE | 2021-03-26 15:22 | ECHOD_ITS ---
Reason For Study: TIA/CVA Procedure This was a 2D Doppler, Color Flow transthoracic echocardiogram. The exam was of adequate technical quality. Exam performed portable in patient room. Left Ventricle Normal LV size. Left ventricular systolic function is normal. The estimated ejection fraction is 65 %. Diastolic function is indeterminate. No regional wall motion abnormalities noted. Right Ventricle Normal RV size. Normal systolic function. Atria Normal left atrium. Normal right atrium. No doppler evidence for ASD. Bubble contrast study negative for right to left interatrial shunt. Mitral Valve There is mild mitral annular calcification. Extension of the mitral annular calcification onto the base of the posterior mitral valve leaflet. Mild (1+) mitral valve insufficiency. Tricuspid Valve Normal tricuspid valve. Mild tricuspid valve insufficiency. Right ventricular systolic pressure estimated to be 28 mmHg. Aortic Valve Trisinus/trileaflet aortic valve. Normal aortic valve. Trivial aortic valve insufficiency. Pulmonic Valve The pulmonic valve is not well visualized. Great Vessels Mildly dilated aortic root. Pericardium/Pleural No pericardial effusion. Medication Performed a rapid injection of agitated mix of 9 cc saline and 1cc air to assess for atrial septal defect. MMode/2D Measurements & Calculations LVIDd: 3.9 cm IVSd: 1.0 cm Ao root diam: 4.0 cm LVIDs: 2.6 cm LVPWd: 1.0 cm RVDd: 3.5 cm FS: 33.1 % LAV(MOD-bp): 44.5 ml LA A4 area: 14.7 cm2 LA dimension(2D): 3.5 cm LAV(MOD-bp) Indexed: 27.6 ml/m2 LAV(MOD-sp2): 44.1 ml LAV(MOD-sp4): 38.6 ml RA A4 area: 13.0 cm2 Time Measurements MV dec time: 0.21 sec Doppler Measurements & Calculations MV E max shaun: 68.8 cm/sec Lat Peak E' Shaun: 5.0 cm/sec Med Peak E' Shaun: 5.0 cm/sec MV A max shaun: 114.4 cm/sec E/E' lat: 13.8 E/E' med: 13.8 MV E/A: 0.60 MV V2 max: 111.1 cm/sec Ao V2 max: 156.6 cm/sec AI max shaun: 385.9 cm/sec MV max P.9 mmHg Ao max P.8 mmHg AI max P.6 mmHg MV V2 mean: 67.1 cm/sec AI dec slope: 217.2 cm/sec2 MV mean P.0 mmHg AI P1/2t: 520.5 msec MV V2 VTI: 29.8 cm LV V1 max: 118.8 cm/sec TR max shaun: 250.2 cm/sec MV P1/2t-pr_phl: 79.6 msec LV V1 max P.6 mmHg TR max P.0 mmHg ECHO/Echo Complete Interpretation Summary Left ventricular systolic function is normal. The estimated ejection fraction is 65 %. There is mild mitral annular calcification. Extension of the mitral annular calcification onto the base of the posterior mi tral valve leaflet. Mild (1+) mitral valve insufficiency. Mild tricuspid valve insufficiency. Trivial aortic valve insufficiency. Mildly dilated aortic root. Right ventricular systolic pressure estimated to be 28 mmHg. Diastolic function is indeterminate. Bubble contrast study negative for right to left interatrial shunt. Ordering Physician: Chela Qiu Referring Physician: TOMASA ROBLEDO Performed By: Celeste Sequeira, JANIS, RVT
--- NOTE | 2021-03-26 15:22 | MRI_ITS ---
HISTORY: neuro deficits EXAMINATION: MR Brain W/O Contrast TECHNIQUE: Multiplanar and multisequence MR images of the brain were obtained without gadolinium. IV Contrast dosage and agent: COMPARISON: Noncontrast head CT same day FINDINGS: BRAIN PARENCHYMA: No MRI evidence of hemorrhage. No evidence of acute infarct. Mild central and cortical involutional changes are noted. There is mild increased T2 and FLAIR signal abnormality in the periventricular white matter. No intracranial mass or mass effect. There is preservation of the genao/white matter interface. Normal sella turcica, pituitary gland, infundibular stalk, optic chiasm and hypothalamus. The internal auditory canals are patent. Posterior fossa structures are unremarkable. CSF SPACES: Appropriate for age. No hydrocephalus. Basal cisterns are patent. VASCULAR SYSTEM: Normal flow voids in the major intracranial circulation. CALVARIUM, SKULL BASE, PARANASAL SINUSES AND MASTOID AIR CELLS: Clear. No discrete lytic or blastic abnormalities. ORBITS: Both globes, extraocular muscles, optic nerves and retrobulbar fat appear unremarkable. MRI/Brain without Contrast IMPRESSION: Chronic involutional and white matter changes. No acute intracranial process. at 2214 Reported and signed by: Osmar Cruz MD Electronically Signed: Osmar Cruz MD at 22:13 EDT Tel , Service support ,
--- NOTE | 2021-03-26 16:51 | HP.PCM.HOS_ITS ---
HPI - General General Date of Admission: 03/26/21 Date of Service: 03/26/21 Chief Complaint: Sudden onset of dizziness HPI Narrative BRADLEY HERNANDEZ, is a 76 F who presents with sudden onset of dizziness that happened this afternoon. Patient was driving to [employer] with her when she suddenly felt very dizzy. She also complained of palpitations and weakness more on the right side as well as shaking of her hands. She tried to lay her head on the dashboard. She was a passenger. This persisted and they called the EMS. When the EMS got there, her blood pressure was slightly elevated at 170/70. Patient was found to have extreme anxiety and had difficulty getting words out. She had a noncontrast head CT that was unremarkable. Patient was later found to have difficulty expressing herself. A stroke alert was called. Her NIH SS score was 0. CTA of the head and neck showed some 50 to 60% narrowing of the left internal carotid artery. Patient was said to be back to her baseline at the time of discharge. [facility] neurology recommended admission and work-up with MRI [facility] Medical History (Updated 03/26/21 @ 17:[address] Chela Qiu MD) Back pain Edema Gastritis Heart disease Hemorrhoids Hyperlipidemia Hypothyroidism Nonrheumatic mitral (valve) insufficiency Paroxysmal atrial fibrillation (04/2020) Paroxysmal atrial tachycardia Premature ventricular contractions Right shoulder pain Home Medications levothyroxine 50 mcg PO DAILY 05/02/14 [History Last Taken 03/26/21] multivitamin with folic acid 1 tab PO DAILY 05/02/14 [History Last Taken 03/25/21] metoprolol tartrate 25 mg tablet 12.5 mg PO BID tab 08/29/20 [History Last Taken 03/26/21] apixaban 5 mg tablet 5 mg PO BID #180 tab 11/06/20 [Rx Last Taken 03/26/21] Bifidobacterium infantis [Align] 4 mg PO DAILY 03/26/21 [History Last Taken 03/26/21] Allergy/AdvReac Type Severity Reaction Status Date / Time Penicillins Allergy Severe Hives Verified 03/26/21 11:56 adhesive Allergy Rash Verified 03/26/21 11:56 ampicillin Allergy Rash Verified 03/26/21 11:56 diltiazem HCl [From Cardizem] Allergy Hives Verified 03/26/21 11:56 morphine AdvReac hypotension Verified 03/26/21 11:56 Family History Father , at age 102 Hypertension Myocardial infarction Pacemaker Cardiac arrhythmia Mother , age 74 Alzheimer's dementia Brother Hypertension Pulmonary hypertension ALS (amyotrophic lateral sclerosis) Sister Hypertension Hyperlipidemia Pulmonary embolism Surgical History History of appendectomy History of colonoscopy (2013) History of esophagogastroduodenoscopy (EGD) (09/26/20) History of hysterectomy Social History Smoking Status: Never smoker alcohol intake: never ROS ROS Narrative Constitutional: Denies: Anorexia, Chills, Fever, Night Sweats, Weight Change Eyes: Denies: Blurred vision, Cataracts, Conjunctivae Inflammation, Pain, Redness, Vision Change HEENT: Denies: Difficulty Hearing, Difficulty Swallowing, Head Aches, Hearing Changes, Sinus Congestion, Sinus Drainage Cardiovascular: Denies: Chest Pain, Orthopnea, Palpitations Respiratory: Denies: Cough, Shortness of breath at rest, Sputum production Gastrointestinal: Denies: Abdominal Pain, Nausea, Vomiting Genitourinary: Denies: Dysuria Musculoskeletal: Denies: Joint Pain, Joint stiffness, Joint swelling, Joint Tenderness Skin: Denies: Rash, Wounds Neurological: See HPI; denies any focal weakness, admits to slight dizziness. No tingling or numbness. Vital Signs Vital Signs Vital Signs: 03/26/21 11:57 03/26/21 12:01 03/26/21 12:35 Temperature 97.6 F L Temperature Source Temporal Pulse Rate 71 73 Respiratory Rate 20 H 40 H Respiratory Effort Normal Non-Labored Respiratory Pattern Normal Blood Pressure 150/71 H 165/88 H Blood Pressure Mean 97 113 Blood Pressure Source Blood Pressure Position Blood Pressure Location Pulse Ox 100 93 Oxygen Delivery Method Room Air Room Air 03/26/21 13:00 03/26/21 13:20 03/26/21 13:34 Temperature Temperature Source Pulse Rate 76 73 Respiratory Rate 32 H 14 Respiratory Effort Respiratory Pattern Blood Pressure 171/98 H 171/98 H Blood Pressure Mean 122 122 Blood Pressure Source Blood Pressure Position Blood Pressure Location Pulse Ox 95 96 Oxygen Delivery Method Room Air Room Air Room Air 03/26/21 14:00 03/26/21 14:30 03/26/21 15:00 Temperature 97.5 F L Temperature Source Temporal Pulse Rate 62 65 64 Respiratory Rate 18 19 H 18 Respiratory Effort Respiratory Pattern Blood Pressure 169/78 H 161/75 H 169/78 H Blood Pressure Mean 108 103 108 Blood Pressure Source Blood Pressure Position Blood Pressure Location Pulse Ox 97 95 96 Oxygen Delivery Method Room Air Room Air Room Air 03/26/21 15:07 03/26/21 15:52 Temperature 97.5 F L 98.1 F Temperature Source Temporal Oral Pulse Rate 65 82 Respiratory Rate 19 H 16 Respiratory Effort Respiratory Pattern Blood Pressure 161/75 H 162/89 H Blood Pressure Mean 103 113 Blood Pressure Source Monitor Blood Pressure Position Semi-Fowlers Blood Pressure Location Left Arm Pulse Ox 95 96 Oxygen Delivery Method Room Air Room Air Weight Weight: 59.058 kg Body Mass Index (BMI) 24.5 Physical Exam Narrative Physical exam: General: Alert, Oriented x3, Cooperative, No apparent distress, Well developed HEENT: Atraumatic Oral: Moist Mucosa Neck: Supple Lungs: Clear to auscultation Cardiovascular: HS I+II, regular, no murmurs Abdomen: Bowel Sounds Present, Soft, Non Tender Extremities: No edema Skin: No rashes, No breakdown Neurological: Grossly intact Psych/Mental Status: Appropriate Lab / Micro Data Result Diagrams: 03/26/21 12:30 03/26/21 12:30 Labs: Laboratory Results - last 24 hr 03/26/21 03/26/21 03/26/21 12:30 12:30 12:35 WBC 7.4 RBC 4.56 Hgb 13.6 Hct 40.5 MCV 88.8 MCH 29.8 MCHC 33.6 RDW Std Deviation 42.3 RDW Coeff of Geno 13.0 Plt Count 184 MPV 12.5 H Immature Gran % (Auto) 0.400 Neut % (Auto) 59.0 Lymph % (Auto) 26.0 [place] % (Auto) 10.2 H Eos % (Auto) 3.5 Baso % (Auto) 0.9 Absolute Neuts (auto) 4.4 Absolute Lymphs (auto) 1.93 Nucleated RBC % 0 Sodium 137 Potassium 3.8 Chloride 104 Carbon Dioxide 23.0 Anion Gap 10 BUN 16 Creatinine 1.32 H Estim Creat Clear Calc 26.93 Est GFR (MDRD) Af Amer 50 L Est GFR (MDRD) Non-Af 42 L BUN/Creatinine Ratio 12.1 Glucose 116 H Calcium 10.0 Troponin I < 0.015 POC Glucose 111 H Radiology Impression Head/Neck CTA 03/26/21 12:43 IMPRESSION: 50-69% narrowing at the origin of the left internal carotid artery. Electronically Signed: Adin Qureshi MD at 14:07 EDT , Service support , Brain CT 03/26/21 12:59 IMPRESSION: No acute intracranial abnormality. Mild chronic ischemic changes. N.B. : The above information has been verbally conveyed by Wally Lopez MD to MD Valdez, on 03/26/2021 13:34:11 (ET). Electronically Signed: Wally Lopez MD at 13:35 EDT Tel , Service support , ADDENDUM: 03/26/21 1342 IMPRESSION: No acute intracranial abnormality. Mild chronic ischemic changes. N.B. : The above information has been verbally conveyed by Wally Lopez MD to MD Valdez, on 03/26/2021 13:34:11 (ET). Electronically Signed: Wally Lopez MD at 13:35 EDT Tel , Service support , Assessment & Plan Assessment/Plan (1) Dizziness: (2) Michael's lobe of liver: (3) TIA (transient ischemic attack): (4) HTN (hypertension): QUALIFIERS: Hypertension type: essential hypertension Qualified Code(s): I10 - Essential (primary) hypertension PLAN: 1. Sudden onset of dizziness likely secondary to TIA Admit to PCU, monitor on telemetry, MRI of the brain, 2D echo Consider for stroke work-up if MRI brain is positive for stroke 2. Paroxysmal atrial fibrillation, EKG shows normal sinus rhythm with PACs, 3. Hypertension, slightly uncontrolled, continue on metoprolol 4. Michael's lobe of liver, follows with gastroenterology I discussed and explained in details the various types of CODE STATUS-full code, DNR CCA, DNR CC. Patient chose Full code. She wants all aggressive work-up. Time spent discussing CODE STATUS 17 minutes Visit Charges OBSV E&M: 82571 Initial observation care L3 Procedures Hospitalists Procedures: 67644 Advncd Care Plan 30 Min
[2021-03-26] MEDS: 0.9% Normal Saline 1,000 ML 100 ML IV (17:06)
[2021-03-26] MEDS: LORazepam 2 MG/ML Syringe 1 MG IV (18:23)
[2021-03-26] MEDS: 0.9% Saline Lock 10 ML Syringe IV (19:38)
[2021-03-26] MEDS: Metoprolol Tartrate 25 MG Tablet 12.5 MG PO (22:08)
[2021-03-26] MEDS: APIXABAN 5 MG TABLET PO (22:08)
[2021-03-26] MEDS: MELATONIN 3 MG TABLET PO (23:49)
[2021-03-27 02:41] VITALS: BP 114/53; PULSE 68; RESP 15; TEMP 36.7; O2SAT 96
[2021-03-27 02:59] VITALS: PULSE 71
[2021-03-27] MEDS: Levothyroxine 50 MCG Tablet PO (06:10)
[2021-03-27 06:14] LABS: Absolute Lymphocyte Count 1.87 X10^3/uL (0.83-4.51); Absolute Neutrophil Count 4.2 X10^3/uL (2.0-7.7); Basophil# 0.05 X10^3/uL; Basophil% 0.7 % (0-1); Eosinophil# 0.33 X10^3/uL; Eosinophils% 4.6 % (0-5); Hematocrit 34.2 % (37-47); Hemoglobin 11.4 g/dL (12.0-15.0); Lymphocyte # 1.87 X10^3/ul (0.83-4.51); Mean Corp Hgb Conc 33.3 g/dL (32-36); Mean Corpuscular Hgb 30.1 pg (27.0-32.0); Mean Corpuscular Volume 90.2 fL (81-99); Monocyte# 0.73 X10^3/uL; Monocyte% 10.2 % (0-10); NRBC Flagged by Analyzer 0 % (0-5); Neutrophil # 4.19 X10^3/uL (2.7-7.7); Neutrophil % 58.2 % (47-70); Platelet Count 146 K/mm3 (150-450); RBC Distribution Width CV 13.3 % (11.6-14.6); RBC Distribution Width SD 43.9 fl (35.1-43.9); Red Blood Count 3.79 M/mm3 (4.2-5.4); White Blood Count 7.2 K/mm3 (4.4-11.0)
[2021-03-27 06:52] LABS: ALB/GLOB Ratio 0.9 RATIO (0.9-2.4); AST(SGOT) 22 U/L (15-37); Alanine Aminotransfer ALT/SGPT 20 U/L (13-56); Albumin, Serum 2.9 g/dL (3.2-5.0); Alkaline Phosphatase 65 U/L (45-117); Anion Gap 7 (5-15); BUN 17 mg/dL (7-18); Calcium,Total 8.3 mg/dL (8.5-10.1); Chloride 109 mmol/L (98-107); Cholesterol 180 mg/dL (200); EST Glomerular Filtration Rate 57 mL/min (>60); Est Glom Filt Rate - Afr Amer 69 mL/min (>60); Estimated Creatinine Clearance 35.55 ml/min; Globulin 3.4 g/dL (2.2-4.2); Glucose 90 mg/dL (74-106); High Density Lipoprotein 38 mg/dL; Protein, Total 6.3 g/dL (6.4-8.2); Sodium Level 142 mmol/L (136-145); Triglycerides 169 mg/dL; Very Low Density Lipoprotein 34 mg/dL (5-40)
[2021-03-27 06:57] VITALS: PULSE 64
[2021-03-27 07:25] VITALS: O2SAT 95
[2021-03-27 08:19] VITALS: BP 126/80; PULSE 69; RESP 14; TEMP 36.8; O2SAT 98
[2021-03-27 08:21] VITALS: BMI 24.5
[2021-03-27 08:31] VITALS: PULSE 69
[2021-03-27] MEDS: APIXABAN 5 MG TABLET PO (08:31)
[2021-03-27] MEDS: Metoprolol Tartrate 25 MG Tablet 12.5 MG PO (08:31)
--- NOTE | 2021-03-27 10:19 | TELEMED_ITS ---
[facility] has confirmed receipt of a request for visit. This document confirms receipt of the order initiating the consult. To find the results of the consultation, please view the patient's reports for the scanned Telemed Consult.
--- NOTE | 2021-03-27 12:23 | PCM.DC ---
Discharge Instructions Diet Discharge Diet: Low fat / Low cholesterol Activity Discharge Activity: Return to Normal Activity Dressing / Incision Call your doctor if you observe: Numbness or Tingling, Shortness of breath, Dizziness and Chest pain Follow Up Care Test Results: Test results from this visit will be discussed in further detail at your follow-up appointment, if applicable. Discharge Plan Admission Admit Date/Time: 03/26/21 15:01 Primary Reason for Your Visit: TIA Attending Provider: Lilia Alejandra Primary Care Provider: Blaise Red Discharge Orders/Prescriptions Prescriptions: New atorvastatin 40 mg tablet 40 mg PO QHS Qty: 30 RF: 0 Continued Align 4 mg Capsule 4 mg PO DAILY RF: 0 No Action Eliquis 5 mg tablet 5 mg PO BID Qty: 180 RF: 4 levothyroxine 50 MCG tablet 50 mcg PO DAILY RF: 0 multivitamin with folic acid 1 TABLET tablet 1 tab PO DAILY RF: 0 metoprolol tartrate 25 mg tablet 12.5 mg PO BID RF: 0 Referrals / Follow Up: Breezy Teixeira MD [STAFF PHYSICIAN] - Within 1 Month Blaise Red MD [Primary Care Provider] - In 1 Week Disposition Disposition (needs filled in before D/C Order can be placed): Home, self care
--- NOTE | 2021-03-27 12:26 | DS.PCM_ITS ---
Documented by User: Yelena Le NP, SPOOLING OPERATOR-C 03/27/21 13:16 Providers Date of Admission: 03/26/21 Date of Discharge: 03/27/21 Primary Care Physician: Dr. 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 (3) TIA (transient ischemic attack): Status: Acute Code(s): G45.9 - Transient cerebral ischemic attack, unspecified (4) HTN (hypertension): Status: Chronic Code(s): I10 - Essential (primary) hypertension Qualifiers: Hypertension type: essential hypertension Qualified Code(s): I10 - Essential (primary) hypertension Medications at Discharge Home Medications levothyroxine 50 mcg PO DAILY 05/02/14 multivitamin with folic acid 1 tab PO DAILY 05/02/14 metoprolol tartrate 25 mg tablet 12.5 mg PO BID tab 08/29/20 apixaban 5 mg tablet 5 mg PO BID #180 tab 11/06/20 Align 4 mg PO DAILY 03/26/21 atorvastatin 40 mg PO QHS #30 tab 03/27/21 Hospital Course Operations None Procedures 2-D Echocardiogram Summary of Care Provided Minutes Spent on Discharge: 35 Hospital Course: Patient is a 76-year-old female admitted 03/26/2021 due to dizzi ness, difficulty with word finding and bilateral hand paresthesias. 1. Probable TIA-CVA ruled out. MRI of brain without acute stroke. CTA of head and neck shows 50 to 69% narrowing of the left internal carotid artery. Echocardiogram demonstrates an EF of 65%. Bubble contrast study negative for [id number] intra-atrial shunt. On Eliquis for paroxysmal atrial fibrillation. Follow-up [facility] neurology consult following imaging suspects TIA. Did not recommend aspirin given patient is on Eliquis at baseline. Continue statin at discharge. Follow-up with neurology in 4 to 6 weeks. Follow-up with PCP in 1 week. 2. Acute kidney injury-resolved with IV fluids. 3. Paroxysmal atrial fibrillation-on Eliquis, metoprolol. 4. Hypertension-stable, on metoprolol. 5. Michael's lobe of liver-following with [facility]. 6. Hypothyroidism-continue Synthroid. Patient seen and examined prior to discharge. Physical assessment as noted below. Patient is stable for discharge with follow up recommendations as noted above. This patient was seen by HAMMAD Valera under the supervision of Dr. Alejandra. Physical Exam Const alert, oriented x3 and no apparent distress Orientation / Consciousness: awake, oriented to person, oriented to place and oriented to time HEENT normocephalic and moist oral mucous membranes Eyes PERRL, EOMs intact bilaterally and conjunctivae normal Neck no lymphadenopathy Resp normal respiratory effort and clear to auscultation bilaterally Cardio regular rate, regular rhythm and no murmurs Peripheral Pulses: pulses 2+ throughout GI normal to inspection, nondistended, normoactive bowel sounds, non-tender and non-distended Extremity normal to inspection Skin no rashes or lesions noted Lesions: no lesions Rashes: no rashes Trauma: no lacerations or abrasions Neuro CN's II-XII intact bilaterally, no focal motor deficits, no sensory deficits noted and deep tendon reflexes 2+ bilaterally Psych mental status grossly normal and affect normal ABG / Lab / Microbiology Data Result Diagrams: 03/27/21 06:08 03/27/21 06:08 Laboratory: Laboratory Results - last 24 hr 03/26/21 03/26/21 03/26/21 12:30 12:30 12:30 WBC 7.4 RBC 4.56 Hgb 13.6 Hct 40.5 MCV 88.8 MCH 29.8 MCHC 33.6 RDW Std Deviation 42.3 RDW Coeff of Geno 13.0 Plt Count 184 MPV 12.5 H Immature Gran % (Auto) 0.400 Neut % (Auto) 59.0 Lymph % (Auto) 26.0 [place] % (Auto) 10.2 H Eos % (Auto) 3.5 Baso % (Auto) 0.9 Absolute Neuts (auto) 4.4 Absolute Lymphs (auto) 1.93 Nucleated RBC % 0 Sodium 137 Potassium 3.8 Chloride 104 Carbon Dioxide 23.0 Anion Gap 10 BUN 16 Creatinine 1.32 H Estim Creat Clear Calc 26.93 Est GFR (MDRD) Af Amer 50 L Est GFR (MDRD) Non-Af 42 L BUN/Creatinine Ratio 12.1 Glucose 116 H Calcium 10.0 Magnesium 2.0 Total Bilirubin AST ALT Alkaline Phosphatase Troponin I < 0.015 Total Protein Albumin Globulin Albumin/Globulin Ratio Triglycerides Cholesterol LDL Cholesterol VLDL Cholesterol HDL Cholesterol POC Glucose 03/26/21 03/27/21 03/27/21 12:35 06:08 06:08 WBC 7.2 RBC 3.79 L Hgb 11.4 L Hct 34.2 L MCV 90.2 MCH 30.1 MCHC 33.3 RDW Std Deviation 43.9 RDW Coeff of Geno 13.3 Plt Count 146 L MPV 12.0 Immature Gran % (Auto) 0.300 Neut % (Auto) 58.2 Lymph % (Auto) 26.0 [place] % (Auto) 10.2 H Eos % (Auto) 4.6 Baso % (Auto) 0.7 Absolute Neuts (auto) 4.2 Absolute Lymphs (auto) 1.87 Nucleated RBC % 0 Sodium 142 Potassium 4.0 Chloride 109 H Carbon Dioxide 26.0 Anion Gap 7 BUN 17 Creatinine 1.00 Estim Creat Clear Calc 35.55 Est GFR (MDRD) Af Amer 69 Est GFR (MDRD) Non-Af 57 L BUN/Creatinine Ratio 17.0 Glucose 90 Calcium 8.3 L Magnesium Total Bilirubin 0.50 AST 22 ALT 20 Alkaline Phosphatase 65 Troponin I Total Protein 6.3 L Albumin 2.9 L Globulin 3.4 Albumin/Globulin Ratio 0.9 Triglycerides 169 Cholesterol 180 LDL Cholesterol 108 VLDL Cholesterol 34 HDL Cholesterol 38 L POC Glucose 111 H Radiography Diagnostic Testing: Radiology Impression Head/Neck CTA 03/26/21 12:43 IMPRESSION: 50-69% narrowing at the origin of the left internal carotid artery. Electronically Signed: Adin Qureshi MD at 14:07 EDT , Service support , Brain CT 03/26/21 12:59 IMPRESSION: No acute intracranial abnormality. Mild chronic ischemic changes. N.B. : The above information has been verbally conveyed by Wally Lopez MD to MD Valdez, on 03/26/2021 13:34:11 (ET). Electronically Signed: Wally Lopez MD at 13:35 EDT Tel , Service support , ADDENDUM: 03/26/21 1342 IMPRESSION: No acute intracranial abnormality. Mild chronic ischemic changes. N.B. : The above information has been verbally conveyed by Wally Lopez MD to MD Valdez, on 03/26/2021 13:34:11 (ET). Electronically Signed: Wally Lopez MD at 13:35 EDT Tel , Service support , Brain MRI 03/26/21 15:22 IMPRESSION: Chronic involutional and white matter changes. No acute intracranial process. at 2214 Reported and signed by: Osmar Cruz MD Electronically Signed: Osmar Cruz MD at 22:13 EDT Tel , Service support , Echocardiogram 03/26/21 15:22 Interpretation Summary Left ventricular systolic function is normal. The estimated ejection fraction is 65 %. There is mild mitral annular calcification. Extension of the mitral annular calcification onto the base of the posterior m itral valve leaflet. Mild (1+) mitral valve insufficiency. Mild tricuspid valve insufficiency. Trivial aortic valve insufficiency. Mildly dilated aortic root. Right ventricular systolic pressure estimated to be 28 mmHg. Diastolic function is indeterminate. Bubble contrast study negative for right to left interatrial shunt. Ordering Physician: Chela Qiu Referring Physician: TOMASA RED Performed By: Celeste Sequeira, HARSHACS, RVT D/C Instructions Discharge Diet: Low fat / Low cholesterol Discharge Activity: Return to Normal Activity Call your doctor if you observe: Numbness or Tingling, Shortness of breath, Dizziness and Chest pain Meaningful Use Info Meaningful Use Diagnoses (Choose all that apply): None applicable Discharge Plan Admission Admit Date/Time: 03/26/21 15:01 Primary Reason for Your Visit: TIA Attending Provider: Lilia Alejandra Primary Care Provider: Tomasa Red Discharge Orders/Prescriptions Prescriptions: New atorvastatin 40 mg tablet 40 mg PO QHS Qty: 30 RF: 0 Continued Align 4 mg Capsule 4 mg PO DAILY RF: 0 No Action Eliquis 5 mg tablet 5 mg PO BID Qty: 180 RF: 4 levothyroxine 50 MCG tablet 50 mcg PO DAILY RF: 0 multivitamin with folic acid 1 TABLET tablet 1 tab PO DAILY RF: 0 metoprolol tartrate 25 mg tablet 12.5 mg PO BID RF: 0 Referrals / Follow Up: Breezy Teixeira MD [STAFF PHYSICIAN] - Within 1 Month Tomasa Red MD [Primary Care Provider] - In 1 Week Disposition Disposition (needs filled in before D/C Order can be placed): Home, self care Documented by User: Dr. Lilia Alejandra DO 03/27/21 15:11 Providers Date of Admission: 03/26/21 Reason For Visit: TIA Medications at Discharge Home Medications levothyroxine 50 mcg PO DAILY 05/02/14 multivitamin with folic acid 1 tab PO DAILY 05/02/14 metoprolol tartrate 25 mg tablet 12.5 mg PO BID tab 08/29/20 apixaban 5 mg tablet 5 mg PO BID #180 tab 11/06/20 Align 4 mg PO DAILY 03/26/21 atorvastatin 40 mg PO QHS #30 tab 03/27/21 Hospital Course Summary of Care Provided Minutes Spent on Discharge: 19 Hospital Course: Mrs. Melchor is a 76-year-old white female who presented to the emergency department at [facility] on 03/26/2021 with a chief complaint of acute onset dizziness. She reported on admission that she was riding in the car when she suddenly felt very lightheaded and nauseated. She asked her to puller through at that time and tried to lay her head on the dashboard. She also had palpitations and weakness that seem to be more on the right side of her body as well as shaking in her hands. Since her symptoms persisted they called the EMS and when EMS arrived her blood pressure was slightly out of elevated at 170/70 and she was found to be extremely anxious and had difficulty getting her words out. Upon arrival to the emergency department a CT of her head was performed and was unremarkable. Later in the ED she was found to have difficulty expressing her words and a stroke alert was called at that time her initial NIH was 0. A CTA of her head was subsequently done and showed 50 to 60% narrowing in the left internal carotid artery. [facility] neurology recommended admission with stroke work-up and MRI at that time. She was admitted to PCU. An echocardiogram was performed and showed ejection fraction of 65% a mildly dilated aortic root and indeterminate diastolic dysfunction. An MRI was performed and showed chronic involutional and white matter changes with no acute intracranial processes. Her serum cholesterol was obtained and her total cholesterol was 180, her LDL 108, her HDL 38, and her triglycerides 169. Teleneurology was consulted and recommended outpatient follow-up and continued monitoring of her carotid artery stenosis found on her CTA of her neck. She is to remain on her NOAC and no other medications were changed. She is to follow- up with outpatient neurology in 2 to 4 weeks and her primary care physician in 1 week. Discharge diagnoses Suspected TIA Dizziness-resolved DARYN-resolved PAF Hypertension Michael's lobe of the liver Hypothyroidism Physical Exam Const alert, oriented x3, no apparent distress and average body habitus Constitutional Narrative: Older white female sitting up in a chair at bedside, watching television, appears comfortable, nontoxic, very pleasant General Appearance: cooperative, comfortable, well kempt and well developed Exam Limitations: no limitations HEENT normocephalic, head/scalp atraumatic, hearing grossly normal bilaterally and moist oral mucous membranes Eyes PERRL and EOMs intact bilaterally Neck supple Neck Narrative: Trachea midline Resp normal respiratory effort, no retractions, no use of accessory muscles and clear to auscultation bilaterally Cardio regular rate, regular rhythm, S1 normal heart sound, S2 normal heart sound, no murmurs, no rub, no gallops, no clicks and no JVD GI normal to inspection, nondistended, normoactive bowel sounds, soft to palpation, non-tender and non-distended Extremity normal to inspection and no clubbing, cyanosis or edema Skin no rashes or lesions noted, no wounds, skin turgor normal and no jaundice Neuro oriented x3, CN's II-XII intact bilaterally, moves all extremities and no focal motor deficits Sensorium / Orientation: awake, alert, oriented to person, oriented to place and oriented to time Speech: speech normal Psych affect normal ABG / Lab / Microbiology Data Result Diagrams: 03/27/21 06:08 03/27/21 06:08 Discharge Plan Admission Admit Date/Time: 03/26/21 15:01 Primary Reason for Your Visit: TIA Attending Provider: Lilia Alejandra Primary Care Provider: Tomasa Red Discharge Orders/Prescriptions Prescriptions: New atorvastatin 40 mg tablet 40 mg PO QHS Qty: 30 RF: 0 Continued Align 4 mg Capsule 4 mg PO DAILY RF: 0 No Action Eliquis 5 mg tablet 5 mg PO BID Qty: 180 RF: 4 levothyroxine 50 MCG tablet 50 mcg PO DAILY RF: 0 multivitamin with folic acid 1 TABLET tablet 1 tab PO DAILY RF: 0 metoprolol tartrate 25 mg tablet 12.5 mg PO BID RF: 0 Referrals / Follow Up: Breezy Teixeira MD [STAFF PHYSICIAN] - Within 1 Month Tomasa Red MD [Primary Care Provider] - In 1 Week Disposition Disposition (needs filled in before D/C Order can be placed): Home, self care Visit Charges Inpatient E&M: 84767 Disch Hosp
--- NOTE | 2021-03-27 13:22 | CASEMGMT ---
SW completed PHQ 9 with patient as she had a TIA. She scored a 1 which indicates minimal depression. 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
== END 2021-03-27 12:23 | disposition home or self-care (01) ==
LOC: ED 14:53 → PCU 15:32
PROVIDERS: Admitting Provider Internal Medicine; Emergency Provider Emergency Medicine; PCP Family Medicine; Visit Provider Internal Medicine
DX: R00.2 Palpitations (principal); R42 Dizziness and giddiness; I10 Essential (primary) hypertension; N17.9 Acute kidney failure, unspecified; E78.5 Hyperlipidemia, unspecified; I47.1 Supraventricular tachycardia; E03.9 Hypothyroidism, unspecified; I51.9 Heart disease, unspecified; Z79.899 Other long term (current) drug therapy; I48.0 Paroxysmal atrial fibrillation; Z79.01 Long term (current) use of anticoagulants; R29.700 NIHSS score 0; F41.9 Anxiety disorder, unspecified; Q44.7 Other congenital malformations of liver; I65.22 Occlusion and stenosis of left carotid artery; R20.2 Paresthesia of skin; R47.89 Other speech disturbances
CPT/HCPCS: 36415; 70450; 70496; 70498; 70551; 80048; 80053; 80061; 82962; 83735; 84484; 85025; 92523; 92610; 93005; 93306; 96361; 96374; 96375; 99218; 99285; J7030; J7040; Q9967; A4216; G0378; J2405; J3490

== ENCOUNTER → 2021-05-07 11:47 | Outpatient (CLI) | payer MEDICARE, OTHER, SELFPAY ==
[2021-04-26 11:48] VITALS: BMI 24.3
[2021-05-07 15:11] LABS: Absolute Lymphocyte Count 1.82 X10^3/uL (0.83-4.51); Absolute Neutrophil Count 4.6 X10^3/uL (2.0-7.7); Basophil# 0.05 X10^3/uL; Basophil% 0.7 % (0-1); Eosinophil# 0.25 X10^3/uL; Eosinophils% 3.3 % (0-5); Hematocrit 38.5 % (37-47); Hemoglobin 12.4 g/dL (12.0-15.0); Lymphocyte # 1.82 X10^3/ul (0.83-4.51); Lymphocyte % 24.4 % (19-41); Mean Corp Hgb Conc 32.2 g/dL (32-36); Mean Corpuscular Hgb 29.5 pg (27.0-32.0); Mean Corpuscular Volume 91.4 fL (81-99); Mean Platelet Vol. 12.9 fl (6.2-12.0); Monocyte% 9.4 % (0-10); NRBC Flagged by Analyzer 0 % (0-5); Neutrophil # 4.63 X10^3/uL (2.7-7.7); Neutrophil % 61.9 % (47-70); Platelet Count 169 K/mm3 (150-450); RBC Distribution Width SD 43.6 fl (35.1-43.9); Red Blood Count 4.21 M/mm3 (4.2-5.4); White Blood Count 7.5 K/mm3 (4.4-11.0)
[2021-05-07 15:24] LABS: CRP < 2.90 mg/L (0.0-3.0)
[2021-05-07 16:19] LABS: Erythrocyte Sedimentation Rate 12 mm/hr (0-30)
== END ==
PROVIDERS: PCP Family Medicine; Referring Provider Ophthalmology; Visit Provider Ophthalmology
DX: G45.3 Amaurosis fugax (principal)
CPT/HCPCS: 36415; 85025; 85652; 86140

== ENCOUNTER → 2021-05-14 12:48 | Outpatient (CLI) | payer MEDICARE, OTHER, SELFPAY ==
[2021-04-26 11:48] VITALS: BMI 24.3
--- NOTE | 2021-05-14 12:49 | CDU_ITS ---
Reason For Study: AMAUROSIS FUGAX Rt. Velocities/BP Lt. Velocities/BP Prox CCA 78.1/20.7 cm/sec. Prox CCA 91.6/22.8 cm/sec. Mid CCA 106.4/23.0 cm/sec. Mid CCA 110.0/26.5 cm/sec. Dist CCA 93.4/30.8 cm/sec. Dist CCA 97.8/22.8 cm/sec. Prox ICA 88.2/20.3 cm/sec. Prox ICA 87.5/23.6 cm/sec. Mid ICA 99.9/28.2 cm/sec. Mid ICA 87.5/27.2 cm/sec. Dist ICA 75.6/22.1 cm/sec. Dist ICA 91.1/30.9 cm/sec. Rt. ICA/CCA = 99.9/106.4=0.9. Lt. ICA/CCA = 91.1/110.0=0.8. Prox ECA 68.6/7.3 cm/sec. Prox ECA 104.7/15.2 cm/sec. Rt. Vert. 54.4/13.8 cm/sec. Lt. Vert. 50.4/18.6 cm/sec. Right Extracranial There is homogeneous, smooth atherosclerotic plaque noted in the right common carotid artery. There is homogeneous, smooth atherosclerotic plaque noted in the right internal carotid artery. The tortuous nature of the right internal carotid artery may result in flow velocities overestimating the degree of stenosis. There is intimal thickening but no significant atherosclerotic plaque noted in the right external carotid artery. Antegrade flow is noted in the right vertebral artery. Left Extracranial There is homogeneous, smooth atherosclerotic plaque noted in the left common carotid artery. There is heterogeneous, smooth atherosclerotic plaque noted in the left internal carotid artery. The tortuous nature of the left internal carotid artery may result in flow velocities overestimating the degree of stenosis. There is intimal thickening but no significant atherosclerotic plaque noted in the left external carotid artery. Antegrade flow is noted in the left vertebral artery. Procedure Carotid Duplex [id number]. This is a Carotid Duplex examination using B-mode, color flow and specral Doppler. The exam was diagnostic. Exam performed in department. VL/Carotid Duplex Ultrasound Interpretation Summary Minimal smooth plaque at the proximal right internal carotid artery with some t ortuosity of the right internal carotid artery noted. Less than 50% stenosis right internal carotid artery Less than 50% stenosis right external carotid artery Minimal smooth plaque of the proximal left internal carotid artery with less th an 50% stenosis Less than 50% stenosis left external carotid artery Patent and antegrade vertebral arteries bilaterally Ordering Physician: Blaise Arteaga Referring Physician: Blaise Red Performed By: Denita Palma, RDCS, RVT
== END ==
PROVIDERS: PCP Family Medicine; Referring Provider Ophthalmology; Visit Provider Ophthalmology
DX: G45.3 Amaurosis fugax (principal)
CPT/HCPCS: 93880

== ENCOUNTER 2022-01-23 10:53 | Outpatient (CLI) | payer MEDICARE, OTHER, SELFPAY ==
--- NOTE | 2022-01-23 10:55 | BI_ITS ---
MAMMOGRAPHY - BILATERAL SCREENING REASON FOR EXAM: Female, 76 years old. Routine annual screening examination. PERTINENT HISTORY: Sister with breast cancer. Grandmother with breast cancer. Aunt with breast cancer. TECHNIQUE: Digital bilateral breast rogelio (3D mammographic acquisition) in the CC and MLO projections. 2-D mediolateral oblique (MLO) and craniocaudad (CC) views of both breasts were obtained. CAD: Full Field Digital Mammography with Computer Added Detection was performed. COMPARISON: Comparison is made with prior study 01/18/2021 and 01/11/2020. FINDINGS: Breast Composition: The breasts are heterogeneously dense, which may obscure small masses. There are no dominant masses or suspicious calcifications. No other significant abnormalities are identified. There has been no significant change since the prior study. BI/SCRN MAMM (CAD)W/ROGELIO BILAT IMPRESSION: Stable bilateral screening mammogram. Yearly follow-up mammogram recommended. (A) ASSESSMENT CATEGORY: BIRADS Category 1: Negative. A letter regarding these results will be sent to the patient by the facility within 30 days. Approximately 10% of breast cancers are not detected by mammography. A normal mammogram should not delay biopsy of a clinically suspicious abnormality. [id number] Electronically Signed: Adin Qureshi MD at 12:19 EDT ,
== END 2022-01-23 23:59 | disposition home or self-care (01) ==
LOC: OPBI 10:54
PROVIDERS: PCP Family Medicine; Visit Provider Family Medicine
DX: Z12.31 Encounter for screening mammogram for malignant neoplasm of breast (principal); Z80.3 Family history of malignant neoplasm of breast
CPT/HCPCS: 77063; 77067

== ENCOUNTER → 2022-06-13 | Outpatient (CLI) | payer MEDICARE, OTHER, SELFPAY ==
--- NOTE | 2022-06-13 12:53 | CDU_ITS ---
Reason For Study: Carotid stenosis Rt. Velocities/BP Lt. Velocities/BP Prox CCA 69.5/14.7 cm/sec. Prox CCA 81.2/17.3 cm/sec. Mid CCA 78.6/18.6 cm/sec. Mid CCA 68.2/16 cm/sec. Dist CCA 64.3/13.4 cm/sec. Dist CCA 66.9/16 cm/sec. Prox ICA 46/12.1 cm/sec. Prox ICA 73.4/17.3 cm/sec. Mid ICA 63/18.6 cm/sec. Mid ICA 60.9/18.2 cm/sec. Dist ICA 85.1/27.8 cm/sec. Dist ICA 72.1/22.6 cm/sec. Rt. ICA/CCA = 1.22. Lt. ICA/CCA = 1.08. Prox ECA 56.5/6.9 cm/sec. Prox ECA 66.9/6.9 cm/sec. Rt. Vert. 49.9/16 cm/sec. Lt. Vert. 39/10.7 cm/sec. Right Extracranial There is homogeneous, smooth atherosclerotic plaque noted in the right common carotid artery. There is homogeneous, smooth atherosclerotic plaque noted in the right internal carotid artery. The right internal carotid artery is very tortuous. There is intimal thickening but no significant atherosclerotic plaque noted in the right external carotid artery. Antegrade flow is noted in the right vertebral artery. Left Extracranial There is homogeneous, smooth atherosclerotic plaque noted in the left common carotid artery. There is heterogeneous, irregular atherosclerotic plaque noted in the left internal carotid artery. The atherosclerotic plaque causes acoustic shadowing. The left internal carotid artery is very tortuous. There is heterogeneous, irregular atherosclerotic plaque noted in the left external carotid artery. Antegrade flow is noted in the left vertebral artery. Procedure Carotid Duplex [id number]. This is a Carotid Duplex examination using B-mode, color flow and specral Doppler. Exam performed in department. VL/Carotid Duplex Ultrasound Interpretation Summary Smooth plaque at the proximal right internal carotid artery with less than 50% stenosis Less than 50% stenosis right external carotid artery Calcific plaque with shadowing at the proximal left internal carotid artery wit h less than 50% stenosis Less than 50% stenosis left external carotid artery Bilateral internal carotid arteries are tortuous Patent and antegrade vertebral arteries bilaterally No change from the previous examination of May 14, 2021 Ordering Physician: Radha Siddiqi Referring Physician: Blaise Red Performed By: Krystyna Ely RVT
== END | disposition home or self-care (01) ==
PROVIDERS: PCP Family Medicine; Referring Provider Physician Assistant Medical; Visit Provider Physician Assistant Medical
DX: I65.23 Occlusion and stenosis of bilateral carotid arteries (principal)
CPT/HCPCS: 93880

== ENCOUNTER 2022-06-25 13:50 | Emergency (ER) | payer MEDICARE, OTHER, SELFPAY ==
[2022-06-25 13:53] VITALS: BP 154/87; PULSE 67; RESP 17; TEMP 36.3; O2SAT 99; BMI 24.5
--- NOTE | 2022-06-25 14:54 | CT_ITS ---
STUDY: CT BRAIN WITHOUT CONTRAST REASON FOR EXAM: Female, 77 years old. Head injury due to a fall. Facial abrasions. RADIATION DOSAGE (If Supplied By Facility): CTDIvol = ( 44.99 ) mGy, DLP = ( 812.98 ) mGycm TECHNIQUE: Transaxial CT imaging of the brain was performed without administration of intravenous contrast material. Individualized dose optimization techniques were used for this CT. COMPARISON: Comparison is made with prior study dated 03/26/2021. FINDINGS: Small scalp hematoma overlying the left periorbital region and left frontal bone. Normal calvarium. There is mild cerebral atrophy with widening of the extra-axial spaces and ventricular dilatation. Normal white matter tracts of the cerebral hemispheres. Normal basal ganglia and thalami. Normal brainstem. Normal cerebellum. There is no intracranial hemorrhage. There are no findings of an acute ischemic infarction. Atherosclerotic calcific plaques of the vertebral arteries and cavernous portions of the internal carotid arteries bilaterally. Normal visualized paranasal sinuses. CT/Brain/Head without Contrast IMPRESSION: Small scalp hematoma overlying the left periorbital region and left frontal bone. Stable cerebral atrophy. Electronically Signed: Adin Qureshi MD at 15:22 EDT ,
--- NOTE | 2022-06-25 14:54 | RAD_ITS ---
STUDY: X-RAY - RIGHT HAND REASON FOR EXAM: Female, 77 years old. FALL TECHNIQUE: 3 view(s) of the hand. COMPARISON: None. FINDINGS: Normal radiocarpal articulation. Normal distal radioulnar joint. Normal visualized carpal bones. Normal carpal articulations Normal carpometacarpal articulation of the thumb. Normal second through fifth carpometacarpal joints. Normal metacarpi. Normal metacarpophalangeal joint of the thumb. Normal interphalangeal joint of the thumb. Normal proximal and distal phalanges of the thumb. Normal metacarpophalangeal joints of the second through fifth fingers. There is a mild degree of diffuse articular joint space narrowing of the proximal and distal interphalangeal joints of the second through fifth fingers, but without erosive changes or periarticular soft tissue swelling. Normal phalanges of the second through fifth fingers. The soft tissue structures are unremarkable. RAD/Hand Min 3 Views IMPRESSION: Degenerative changes of the interphalangeal joints. Electronically Signed: Adin Qureshi MD at 15:31 EDT ,
--- NOTE | 2022-06-25 15:10 | RAD_ITS ---
STUDY: X-RAY - LEFT HAND REASON FOR EXAM: Female, 77 years old. Pain following a fall. TECHNIQUE: 4 view(s) of the hand. COMPARISON: None. FINDINGS: Normal radiocarpal articulation. Normal distal radioulnar joint. Normal visualized carpal bones. Normal carpal articulations Normal carpometacarpal articulation of the thumb. Normal second through fifth carpometacarpal joints. Normal metacarpi. Normal metacarpophalangeal joint of the thumb. Normal interphalangeal joint of the thumb. Normal proximal and distal phalanges of the thumb. Normal metacarpophalangeal joints of the second through fifth fingers. There is a mild degree diffuse articular joint space narrowing of the proximal and distal interphalangeal joints of the second through fifth fingers, but without erosive changes or periarticular soft tissue swelling. Normal phalanges of the second through fifth fingers. The soft tissue structures are unremarkable. RAD/Hand Min 3 Views IMPRESSION: Degenerative changes. No fracture is seen. Electronically Signed: Adin Qureshi MD at 15:31 EDT ,
--- NOTE | 2022-06-25 15:18 | ED.VIS.FALL ---
HPI HPI - Fall History of Present Illness Chief Complaint: Fall Informant: patient and EMS Narrative Narrative: 76-year-old female presenting to the emergency department following a fall. Patient was walking on sidewalk when she reportedly tripped over a lip of concrete. She notes that she was pushed her hands out in front of her to help brace herself. She notes injuries to the bilateral hands including a skin tear and pain at the left fifth MCP volar aspect. She notes facial contusion and abrasion. She notes a right knee abrasion. She denies any neck or back pain. Unknown last tetanus. Tetanus Immunization: Unknown [facility] Medical History Back pain Carotid stenosis, left Edema Essential hypertension Gastritis Heart disease Hemorrhoids Hyperlipidemia Hypothyroidism Nonrheumatic mitral (valve) insufficiency Paroxysmal atrial fibrillation (04/2020) Paroxysmal atrial tachycardia Premature ventricular contractions Right shoulder pain Home Medications levothyroxine 50 mcg tablet 50 mcg PO DAILY thyroid 05/02/14 [History Last Taken 03/26/21] multivitamin with folic acid 400 mcg tablet 1 tab PO DAILY supplement 05/02/14 [History Last Taken 03/25/21] atorvastatin 40 mg tablet 40 mg PO QHS #30 tabs 03/27/21 [Rx Last Taken Unknown] apixaban 5 mg tablet (Eliquis) 5 mg PO BID #180 tabs 11/12/21 [Rx Last Taken Unknown] Bifidobacterium infantis 4 mg capsule (Align) 4 mg PO .COMPLEX 05/15/22 [History Last Taken Unknown] metoprolol tartrate 25 mg tablet 12.5 mg PO BID #90 tabs 05/15/22 [Rx Last Taken Unknown] citalopram 10 mg tablet 10 mg PO QHS 06/25/22 [History Last Taken Unknown] Allergy/AdvReac Type Severity Reaction Status Date / Time Penicillins Allergy Severe Hives Verified 06/25/22 13:51 adhesive Allergy Rash Verified 06/25/22 13:51 ampicillin Allergy Rash Verified 06/25/22 13:51 diltiazem HCl [From Cardizem] Allergy Hives Verified 06/25/22 13:51 morphine AdvReac hypotension Verified 06/25/22 13:51 Family History Father , at age 102 Hypertension Myocardial infarction Pacemaker Cardiac arrhythmia Mother , age 74 Alzheimer's dementia Brother Hypertension Pulmonary hypertension ALS (amyotrophic lateral sclerosis) Sister Hypertension Hyperlipidemia Pulmonary embolism Surgical History History of appendectomy History of colonoscopy (2013) History of esophagogastroduodenoscopy (EGD) (09/26/20) History of hysterectomy Social History Smoking Status: Never smoker alcohol intake: never ROS ROS ED Constitutional Constitutional ED: Denies chills, fever(s) or weight loss Eyes Eyes: Denies change in vision or diplopia ENT ENT ED: Denies ear pain, rhinorrhea or sore throat Cardiovascular Cardiovascular: Denies chest pain, orthopnea, palpitations or racing heartbeat Respiratory/Chest Respiratory/Chest: Denies cough, dyspnea or orthopnea Gastrointestinal Gastrointestinal: Denies abdominal pain, diarrhea, nausea or vomiting Genitourinary Genitourinary ED: Denies dysuria, hematuria or urinary frequency Musculoskeletal Musculoskeletal: Denies arthralgias, back pain, myalgias or neck pain Integumentary Reports Abrasions; Denies abscess or rash Neurologic Neurologic: Denies headache(s) or weakness Psychiatric Psychiatric: Denies anxiety, depression, suicidal ideation or suicidal thoughts Endocrine Endocrinology: Denies polydipsia, polyphagia or polyuria Allergic/Immunologic Allergic/Immunologic ED: Denies mouth swelling, tongue swelling or urticaria EXAM Physical Exam Const Vital Signs: 06/25/22 13:53 06/25/22 13:53 Temperature 97.4 F L Temperature Source Temporal Pulse Rate 67 Respiratory Rate 17 Respiratory Effort Normal Non-Labored Respiratory Depth Normal Respiratory Pattern Normal Blood Pressure 154/87 H Blood Pressure Mean 109 Pulse Ox 99 Oxygen Delivery Method Room Air Room Air Positive well nourished and well developed General Appearance ED: well developed HEENT Reports normocephalic and moist mucous membranes HEENT Narrative: There is swelling of the left periorbital region with associated abrasions. Eye appears without trauma. No malocclusion or dental trauma noted. Midface appears stable. No septal hematoma. Eyes PERRL and EOMs intact bilaterally Neck no lymphadenopathy, supple and no JVD Resp normal respiratory effort and clear to auscultation bilaterally Cardio regular rate, regular rhythm and no murmurs GI normal to inspection, nondistended, normoactive bowel sounds and non-tender Palpation: soft Back/Spine no CVA tenderness and normal ROM Extremity Extremity Narrative: Patient has tenderness over the bilateral fifth MCP joints. The left shows a dime sized area of skin avulsion. General Extremety ED: Negative for edema General Extremity: Negative for edema Neuro oriented x3 and CN's II-XII intact bilaterally Sensorium / Orientation: alert Motor Exam: strength 5/5 throughout Psych mental status grossly normal Mood & Affect: Negative for depressed or tearful Skin no rashes or lesions noted MDM MDM MDM Narrative Medical decision making narrative: My interpretation of the bilateral hand films is no acute fracture. CT of the head was obtained and is negative for intracranial hemorrhage or fracture. Tetanus was updated with Adacel. Wounds were cleansed and dressed. Patient received Tylenol. Patient will be discharged home with supportive care. Return if worsening or concerns Radiography Diagnostic Testing: Clinical Impression(s) from Imaging Studies Brain CT 06/25/22 14:54 IMPRESSION: Small scalp hematoma overlying the left periorbital region and left frontal bone. Stable cerebral atrophy. Electronically Signed: Adin Qureshi MD at 15:22 EDT , Hand X-Ray 06/25/22 14:54 IMPRESSION: Degenerative changes of the interphalangeal joints. Electronically Signed: Adin Qureshi MD at 15:31 EDT , Hand X-Ray 06/25/22 15:10 IMPRESSION: Degenerative changes. No fracture is seen. Electronically Signed: Adin Qureshi MD at 15:31 EDT , Discharge Plan Triage Chief Complaint: Fall ED Provider: Noé Patten Dx/Rx/DC Orders Clinical Impression: Fall, Periorbital hematoma of left eye, Contusion of hand(s), Avulsion of skin of hand Instructions: Black Eye, ED Hand Contusion, ED Skin Avulsion Prescriptions: No Action Eliquis 5 mg tablet 5 mg PO BID Qty: 180 4RF metoprolol tartrate 25 mg tablet 12.5 mg PO BID Qty: 90 3RF levothyroxine 50 MCG tablet 50 mcg PO DAILY multivitamin with folic acid 1 TABLET tablet 1 tab PO DAILY atorvastatin 40 mg tablet 40 mg PO QHS Qty: 30 0RF Align 4 mg capsule 4 mg PO .COMPLEX Rx Instructions: 4 mg orally 3 times per week; citalopram 10 mg tablet 10 mg PO QHS Label Comments: TAKE 1 TABLET BY MOUTH DAILY IN THE EVENING Primary Care Provider: Naty Arce Referrals: Naty Arce [Primary Care Provider] - Disposition Disposition: Home, Self Care
[2022-06-25] MEDS: Acetaminophen 500 MG Tablet 1000 MG PO (15:25)
[2022-06-25] MEDS: Diphth,Pertuss(Acell),Tet Vac 0.5 ML Vial IM (15:26)
[2022-06-25 16:04] VITALS: PULSE 72; RESP 16; O2SAT 98
== END 2022-06-25 16:09 | disposition home or self-care (01) ==
PROVIDERS: Emergency Provider Emergency Medicine; PCP Family Medicine; Visit Provider Emergency Medicine
DX: S61.409A Unspecified open wound of unspecified hand, initial encounter (principal); I48.0 Paroxysmal atrial fibrillation; E78.5 Hyperlipidemia, unspecified; I10 Essential (primary) hypertension; M19.041 Primary osteoarthritis, right hand; S05.12XA Contusion of eyeball and orbital tissues, left eye, initial encounter; S80.211A Abrasion, right knee, initial encounter; W10.1XXA Fall (on)(from) sidewalk curb, initial encounter; S60.229A Contusion of unspecified hand, initial encounter
CPT/HCPCS: 70450; 73130; 90715; 99283

== ENCOUNTER → 2022-07-16 | Outpatient (CLI) | payer MEDICARE, OTHER, SELFPAY ==
[2022-07-16 12:17] LABS: Absolute Lymphocyte Count 1.29 X10^3/uL (0.83-4.51); Absolute Neutrophil Count 3.1 X10^3/uL (2.0-7.7); Basophil# 0.06 X10^3/uL; Basophil% 1.1 % (0-1); Eosinophils% 3.8 % (0-5); Hemoglobin 12.5 g/dL (12.0-15.0); Lymphocyte # 1.29 X10^3/ul (0.83-4.51); Lymphocyte % 24.6 % (19-41); Mean Corp Hgb Conc 32.9 g/dL (32-36); Mean Corpuscular Hgb 30.6 pg (27.0-32.0); Mean Corpuscular Volume 92.9 fL (81-99); Mean Platelet Vol. 12.8 fl (6.2-12.0); Monocyte# 0.59 X10^3/uL; Monocyte% 11.3 % (0-10); NRBC Flagged by Analyzer 0 % (0-5); Neutrophil # 3.09 X10^3/uL (2.7-7.7); Platelet Count 150 K/mm3 (150-450); RBC Distribution Width SD 47.6 fl (35.1-43.9); Red Blood Count 4.09 M/mm3 (4.2-5.4); White Blood Count 5.2 K/mm3 (4.4-11.0)
[2022-07-16 12:42] LABS: ALB/GLOB Ratio 0.9 RATIO (0.9-2.4); AST(SGOT) 45 U/L (15-37); Alanine Aminotransfer ALT/SGPT 62 U/L (13-56); Albumin, Serum 3.5 g/dL (3.2-5.0); Alkaline Phosphatase 82 U/L (45-117); Anion Gap 4 (5-15); BUN 18 mg/dL (7-18); BUN/Creat Ratio 19.4 RATIO (10-20); Calcium,Total 9.3 mg/dL (8.5-10.1); Chloride 105 mmol/L (98-107); Cholesterol 118 mg/dL (200); Creatinine, Serum 0.93 mg/dL (0.55-1.02); EST Glomerular Filtration Rate 62 mL/min (>60); Est Glom Filt Rate - Afr Amer 75 mL/min (>60); Free T3 2.4 pg/mL (2.18-3.98); Globulin 3.8 g/dL (2.2-4.2); Glucose 90 mg/dL (74-106); High Density Lipoprotein 63 mg/dL; Potassium 4.6 mmol/L (3.5-5.1); Protein, Total 7.3 g/dL (6.4-8.2); Sodium Level 139 mmol/L (136-145); T4 Free Direct 1.34 ng/dL (0.76-1.46); Thyroid Stim Hormone (TSH) 0.75 uIU/mL (0.358-3.74); Triglycerides 77 mg/dL; Very Low Density Lipoprotein 15 mg/dL (5-40)
== END | disposition home or self-care (01) ==
LOC: MTLAB 09:33
PROVIDERS: PCP Family Medicine; Referring Provider Family Medicine; Visit Provider Family Medicine
DX: E03.9 Hypothyroidism, unspecified (principal); E78.5 Hyperlipidemia, unspecified; Z51.81 Encounter for therapeutic drug level monitoring
CPT/HCPCS: 36415; 80053; 80061; 84439; 84443; 84481; 85025

== ENCOUNTER → 2023-01-26 | Outpatient (CLI) | payer MEDICARE, OTHER, SELFPAY ==
--- NOTE | 2023-01-26 12:47 | BI_ITS ---
MAMMOGRAPHY - BILATERAL SCREENING REASON FOR EXAM: Female, 77 years old. Routine annual screening examination. PERTINENT HISTORY: Sister with breast cancer. Grandmother with breast cancer. Aunt with breast cancer. TECHNIQUE: Digital bilateral breast rogelio (3D mammographic acquisition) in the CC and MLO projections. 2-D mediolateral oblique (MLO) and craniocaudad (CC) views of both breasts were obtained. CAD: Full Field Digital Mammography with Computer Added Detection was performed. COMPARISON: Comparison is made with prior study of January 23, 2022 and January 18, 2021. FINDINGS: Breast Composition: The breasts are heterogeneously dense, which may obscure small masses. There are no dominant masses or suspicious calcifications. No other significant abnormalities are identified. There has been no significant change since the prior study. BI/SCRN MAMM (CAD)W/ROGELIO BILAT IMPRESSION: Stable bilateral screening mammogram. Yearly follow-up mammogram recommended. (A) ASSESSMENT CATEGORY: BIRADS Category 1: Negative. A letter regarding these results will be sent to the patient by the facility within 30 days. Approximately 10% of breast cancers are not detected by mammography. A normal mammogram should not delay biopsy of a clinically suspicious abnormality. [id number] Electronically Signed: Adin Qureshi MD at 14:21 EDT ,
== END | disposition home or self-care (01) ==
LOC: OPBI 12:44
PROVIDERS: PCP Family Medicine; Visit Provider Family Medicine
DX: Z12.31 Encounter for screening mammogram for malignant neoplasm of breast (principal); Z80.3 Family history of malignant neoplasm of breast
CPT/HCPCS: 77063; 77067

== ENCOUNTER → 2023-07-08 | Outpatient (CLI) | payer MEDICARE, OTHER, SELFPAY ==
[2023-07-08 12:22] LABS: Absolute Lymphocyte Count 1.52 X10^3/uL (0.83-4.51); Absolute Neutrophil Count 3.7 X10^3/uL (2.0-7.7); Basophil# 0.07 X10^3/uL; Basophil% 1.1 % (0-1); Eosinophil# 0.36 X10^3/uL; Eosinophils% 5.7 % (0-5); Hemoglobin 12.6 g/dL (12.0-15.0); Lymphocyte # 1.52 X10^3/ul (0.83-4.51); Lymphocyte % 24.1 % (19-41); Mean Corp Hgb Conc 32.3 g/dL (32-36); Mean Corpuscular Hgb 30.4 pg (27.0-32.0); Mean Platelet Vol. 13.3 fl (6.2-12.0); Monocyte# 0.65 X10^3/uL; Monocyte% 10.3 % (0-10); NRBC Flagged by Analyzer 0 % (0-5); Neutrophil # 3.69 X10^3/uL (2.7-7.7); Neutrophil % 58.6 % (47-70); Platelet Count 159 K/mm3 (150-450); RBC Distribution Width CV 13.6 % (11.6-14.6); Red Blood Count 4.15 M/mm3 (4.2-5.4); White Blood Count 6.3 K/mm3 (4.4-11.0)
[2023-07-08 13:05] LABS: ALB/GLOB Ratio 0.9 RATIO (0.9-2.4); AST(SGOT) 45 U/L (15-37); Alanine Aminotransfer ALT/SGPT 53 U/L (13-56); Albumin, Serum 3.5 g/dL (3.2-5.0); Alkaline Phosphatase 90 U/L (45-117); Anion Gap 4 (5-15); BUN 20 mg/dL (7-18); BUN/Creat Ratio 20.1 RATIO (10-20); Chloride 107 mmol/L (98-107); Cholesterol 116 mg/dL (200); EST Glomerular Filtration Rate 57 mL/min (>60); Est Glom Filt Rate - Afr Amer 69 mL/min (>60); Free T3 2.6 pg/mL (2.18-3.98); Globulin 3.9 g/dL (2.2-4.2); Glucose 92 mg/dL (74-106); High Density Lipoprotein 58 mg/dL; Potassium 4.4 mmol/L (3.5-5.1); Protein, Total 7.4 g/dL (6.4-8.2); Sodium Level 139 mmol/L (136-145); T4 Free Direct 1.26 ng/dL (0.76-1.46); Thyroid Stim Hormone (TSH) 1.97 uIU/mL (0.358-3.74); Triglycerides 80 mg/dL; Very Low Density Lipoprotein 16 mg/dL (5-40)
== END | disposition home or self-care (01) ==
LOC: BFHLAB 09:09
PROVIDERS: PCP Family Medicine; Referring Provider Family Medicine; Visit Provider Family Medicine
DX: E03.9 Hypothyroidism, unspecified (principal); E78.5 Hyperlipidemia, unspecified; Z51.81 Encounter for therapeutic drug level monitoring
CPT/HCPCS: 36415; 80053; 80061; 84439; 84443; 84481; 85025

== ENCOUNTER → 2023-08-12 | Outpatient (CLI) | payer MEDICARE, OTHER, SELFPAY ==
--- NOTE | 2023-08-12 13:58 | CDU_ITS ---
Reason For Study: unspecified subjective visual disturbances Rt. Velocities/BP Lt. Velocities/BP Prox CCA 74.3/7.2 cm/sec. Prox CCA 89.1/15.5 cm/sec. Mid CCA 110.0/17.9 cm/sec. Mid CCA 112.5/16.7 cm/sec. Dist CCA 90.4/16.7 cm/sec. Dist CCA 83.0/14.2 cm/sec. Prox ICA 41.7/10.9 cm/sec. Prox ICA 96.5/13.0 cm/sec. Mid ICA 95.2/21.5 cm/sec. Mid ICA 76.9/16.7 cm/sec. Dist ICA 68.4/21.0 cm/sec. Dist ICA 86.7/24.1 cm/sec. Rt. ICA/CCA = 95.2/110.0=0.9. Lt. ICA/CCA = 96.5/112.5=0.9. Prox ECA 63.3/6.2 cm/sec. Prox ECA 70.7/4.4 cm/sec. Rt. Vert. 53.5/11.8 cm/sec. Lt. Vert. 52.3/10.6 cm/sec. Right Extracranial There is homogeneous, smooth atherosclerotic plaque noted in the right common carotid artery. There is heterogeneous, smooth atherosclerotic plaque noted in the right internal carotid artery. The right internal carotid artery is very tortuous. There is intimal thickening but no significant atherosclerotic plaque noted in the right external carotid artery. Antegrade flow is noted in the right vertebral artery. Left Extracranial There is homogeneous, smooth atherosclerotic plaque noted in the left common carotid artery. There is heterogeneous, smooth atherosclerotic plaque noted in the left internal carotid artery. There is heterogeneous, irregular atherosclerotic plaque noted in the left external carotid artery. The left external carotid artery is tortuous. Antegrade flow is noted in the left vertebral artery. Procedure Carotid Duplex [id number]. This is a Carotid Duplex examination using B-mode, color flow and specral Doppler. Exam performed in department. VL/Carotid Duplex Ultrasound Interpretation Summary Mild (<50%) stenosis right extracranial internal carotid. Mild (<50%) stenosis left extracranial internal carotid. Patent and antegrade vertebrals bilaterally. Ordering Physician: Blaise Arteaga Referring Physician: Naty Arce Performed By: Denita Palma, JANIS, RVT
== END | disposition home or self-care (01) ==
LOC: CVS 13:55
PROVIDERS: PCP Family Medicine; Referring Provider Ophthalmology; Visit Provider Ophthalmology
DX: H53.10 Unspecified subjective visual disturbances (principal)
CPT/HCPCS: 93880

== ENCOUNTER → 2023-09-08 | Outpatient (CLI) | payer MEDICARE, OTHER, SELFPAY ==
--- NOTE | 2023-09-08 14:40 | RAD_ITS ---
STUDY: X-RAY - LEFT WRIST REASON FOR EXAM: Female, 78 years old. Injury TECHNIQUE: 3 view(s) of the wrist were obtained. COMPARISON: None. FINDINGS: Normal visualized distal radius and ulna. Normal radiocarpal articulation. Normal distal radioulnar articulation. Normal carpal bones. Normal carpal articulations. Normal carpometacarpal articulation of the thumb. Normal second through fifth carpometacarpal articulations. Normal visualized metacarpal bones. The soft tissue structures are unremarkable. RAD/Wrist min 3 Views IMPRESSION: Normal x-ray examination of the wrist. Electronically Signed: Adin Qureshi MD at 15:13 EST ,
--- NOTE | 2023-09-08 14:40 | RAD_ITS ---
STUDY: X-RAY - LEFT HAND REASON FOR EXAM: Female, 78 years old. Pain and laceration. TECHNIQUE: 3 view(s) of the hand. COMPARISON: None. FINDINGS: Normal radiocarpal articulation. Normal distal radioulnar joint. Normal visualized carpal bones. Normal carpal articulations Normal carpometacarpal articulation of the thumb. Normal second through fifth carpometacarpal joints. Normal metacarpi. Normal metacarpophalangeal joint of the thumb. Normal interphalangeal joint of the thumb. Normal proximal and distal phalanges of the thumb. Normal metacarpophalangeal joints of the second through fifth fingers. There is diffuse articular joint space narrowing of the proximal and distal interphalangeal joints of the second through fifth fingers, but without erosive changes or periarticular soft tissue swelling. Normal phalanges of the second through fifth fingers. The soft tissue structures are unremarkable. RAD/Hand Min 3 Views IMPRESSION: Degenerative changes of the proximal and distal interphalangeal joints. Electronically Signed: Adin Qureshi MD at 15:13 EST ,
== END | disposition home or self-care (01) ==
LOC: MTRAD 14:40
PROVIDERS: PCP Family Medicine; Referring Provider Physician Assistant; Visit Provider Physician Assistant
DX: S69.92XA Unspecified injury of left wrist, hand and finger(s), initial encounter (principal)
CPT/HCPCS: 73110; 73130

== ENCOUNTER → 2023-10-08 | Outpatient (CLI) | payer MEDICARE, OTHER, SELFPAY | END | disposition home or self-care (01) | LOC: PSN 09:57 | PROVIDERS: PCP Family Medicine; Referring Provider Physician Assistant Medical; Visit Provider Physician Assistant Medical | DX: I48.0 Paroxysmal atrial fibrillation (principal) | CPT/HCPCS: 93225; 93226 ==

== ENCOUNTER → 2023-10-20 | Outpatient (CLI) | payer MEDICARE, OTHER, SELFPAY | END | disposition home or self-care (01) | LOC: PSN 09:57 | PROVIDERS: PCP Family Medicine; Referring Provider Physician Assistant Medical; Visit Provider Physician Assistant Medical | DX: I48.0 Paroxysmal atrial fibrillation (principal); I49.3 Ventricular premature depolarization | CPT/HCPCS: 93225; 93226 ==

== ENCOUNTER → 2024-01-29 | Outpatient (CLI) | payer MEDICARE, OTHER, SELFPAY ==
--- NOTE | 2024-01-29 12:49 | BI_ITS ---
MAMMOGRAPHY - BILATERAL SCREENING REASON FOR EXAM: Female, 78 years old. Routine annual screening examination. PERTINENT HISTORY: Sister with breast cancer. Grandmother with breast cancer. Aunt with breast cancer. TECHNIQUE: Digital bilateral breast rogelio (3D mammographic acquisition) in the CC and MLO projections. 2-D mediolateral oblique (MLO) and craniocaudad (CC) views of both breasts were obtained. CAD: Full Field Digital Mammography with Computer Added Detection was performed. COMPARISON: Comparison is made with prior study January 26, 2023 and January 23, 2022. FINDINGS: Breast Composition: The breasts are heterogeneously dense, which may obscure small masses. There are no dominant masses or suspicious calcifications. No other significant abnormalities are identified. There has been no significant change since the prior study. BI/SCRN MAMM (CAD)W/ROGELIO BILAT IMPRESSION: Stable bilateral screening mammogram. Yearly follow-up mammogram recommended. (A) ASSESSMENT CATEGORY: BIRADS Category 1: Negative. A letter regarding these results will be sent to the patient by the facility within 30 days. Approximately 10% of breast cancers are not detected by mammography. A normal mammogram should not delay biopsy of a clinically suspicious abnormality. [id number] Electronically Signed: Adin Qureshi MD at 15:52 EDT ,
== END | disposition home or self-care (01) ==
LOC: OPBI 12:47
PROVIDERS: PCP Family Medicine; Referring Provider Family Medicine; Visit Provider Family Medicine
DX: Z12.31 Encounter for screening mammogram for malignant neoplasm of breast (principal); Z80.3 Family history of malignant neoplasm of breast
CPT/HCPCS: 77063; 77067

== ENCOUNTER → 2024-03-08 | Outpatient (CLI) | payer MEDICARE, OTHER, SELFPAY ==
--- NOTE | 2024-03-08 16:58 | RAD_ITS ---
STUDY: X-RAY - LUMBAR SPINE REASON FOR EXAM: Female, 78 years old. SCIATICA TECHNIQUE: 5 view(s) of the lumbar spine were obtained. COMPARISON: None FINDINGS: Normal lumbar lordosis. Mild dextroscoliosis of the thoracic lumbar spine. 10 mm of anterolisthesis of L4 on L5. There is multilevel endplate spondylosis of the lumbar vertebrae. There is multi-level degenerative disc disease with multi-level disc space narrowing. Multilevel facet hypertrophy in the lower lumbar spine. The soft tissue structures are unremarkable. RAD/L/S Spine Min 4 Views IMPRESSION: Mild dextroscoliosis with degenerative disc disease with 10 mm of anterolisthesis of L4 on L5. MRI may be useful. Electronically Signed: Mesfin Morgan MD at 23:35 EDT ,
--- NOTE | 2024-03-08 17:00 | RAD_ITS ---
STUDY: X-RAY - PELVIS AND LEFT HIP REASON FOR EXAM: Female, 78 years old. Pain. TECHNIQUE: 2 views of the pelvis and left hip. COMPARISON: None. FINDINGS: There is a non-specific bowel gas pattern. Normal visualized soft tissue structures. Normal bilateral iliac wings, sacroiliac joints and visualized sacrum. Normal bilateral superior and inferior pubic rami. There is minimal pubic symphysis arthrosis. Normal bilateral ischial tuberosities. Normal visualized femoral head. Normal acetabulum. Normal hip joint. There is no demonstrated acute fracture. RAD/HIP, UNI W/ Pelvis 2-3 Views IMPRESSION: Minimal pubic symphysis arthrosis. No demonstrated acute fracture. Electronically Signed: Frandy Alejandra MD at 9:58 EDT ,
== END | disposition home or self-care (01) ==
LOC: RAD 16:57
PROVIDERS: PCP Family Medicine; Referring Provider Nurse Practitioner Family; Visit Provider Nurse Practitioner Family
DX: M25.552 Pain in left hip (principal); M54.32 Sciatica, left side
CPT/HCPCS: 72110; 73502

== ENCOUNTER → 2024-04-02 | Outpatient (CLI) | payer MEDICARE, OTHER, SELFPAY ==
--- NOTE | 2024-04-02 08:36 | MRI_ITS ---
HISTORY: Left radiculopathy, left sciatica and upper thigh x 2 months. TECHNIQUE: Multiplanar and multisequence MR images of the lumbar spine were obtained without intravenous contrast. 162 images. COMPARISON: CR 03/08/2024, CT 10/11/2020. FINDINGS: VERTEBRAE: Vertebral body heights maintained. Mild degenerative bone marrow endplate changes particularly of L2-3, L4-5, and L5-S1. ALIGNMENT: Chronic 2 mm retrolisthesis of L2-3 and 5 mm anterolisthesis of L4-5. Mild levoscoliosis. CONUS: Normal morphology and position of the conus medullaris at the lower L1 level. INTERVERTEBRAL DISCS: Posterior disc bulge osteophyte complexes with facet arthropathy at multiple levels. T11-12, T12-L1: No significant central canal stenosis or foraminal narrowing based on the sagittal images. L1-2: No significant central canal stenosis or foraminal narrowing. L2-3: Mild central canal stenosis, moderate right, and moderate-severe left foraminal narrowing with bilateral L2 nerve root abutment. L3-4: Mild central canal stenosis with mild-moderate bilateral foraminal narrowing. L4-5: Markedly severe central canal stenosis, bilateral L5 nerve root impingement, mild left, and moderate right foraminal narrowing with right L4 nerve root impingement. L5-S1: Mild left paracentral disc protrusion with left S1 nerve root impingement. Mild central canal stenosis and left greater than right foraminal narrowing. SOFT TISSUES: Colonic diverticulosis observed. Mild posterior subcutaneous edema. No paraspinal fluid collection. MRI/Spine Lumbar (Routine) IMPRESSION: Multilevel degenerative disc disease. Mild spinal canal stenosis with moderate right and moderate-severe left foraminal narrowing and bilateral nerve root abutment at L2-3. Chronic anterolisthesis of L4-5 with degenerative change resulting in markedly severe spinal canal stenosis, nerve root impingement, mild left, and moderate right foraminal narrowing. Mild left paracentral disc protrusion of L5-S1 with left nerve root impingement. Electronically Signed: Monica Genao MD at 13:44 EDT ,
== END | disposition home or self-care (01) ==
LOC: MRI 08:35
PROVIDERS: PCP Family Medicine; Referring Provider Family Medicine; Visit Provider Family Medicine
DX: M51.36 Other intervertebral disc degeneration, lumbar region (principal); M54.16 Radiculopathy, lumbar region
CPT/HCPCS: 72148

== ENCOUNTER 2024-07-06 18:26 | Emergency (ER) | payer MEDICARE, OTHER, SELFPAY ==
[2024-07-06] VITALS (7 sets, daily range): BP systolic 125–155; BP diastolic 63–85; PULSE 61–76; RESP 16–18; TEMP 36.4–36.8; O2SAT 92–98
--- NOTE | 2024-07-06 18:37 | ED.RN ---
PT SAID SHE TOOK AN COVID TEST 2 NIGHTS AGO AND IT WAS POSITIVE, SHE HAS BEEN FEELING SICK AND UNDER THE WEATHER. WHILE WORKING OUTSIDE TODAY SHE GOT HOT, HEART WAS RACING, AND SHE FELT LIKE SHE MIGHT PASS OUT. SHE WENT INSIDE TO REST AND PUT HER LEGS UP AND THAT IS WHEN THE [facility] WAS CALLED.
--- NOTE | 2024-07-06 18:44 | EKG12_ITS ---
Test Reason : PALPS Blood Pressure : / mmHG Vent. Rate : 073 BPM Atrial Rate : 073 BPM P-R Int : 188 ms QRS Dur : 094 ms QT Int : 404 ms P-R-T Axes : 058 -38 032 degrees QTc Int : 445 ms Sinus rhythm with Premature atrial complexes with Aberrant conduction Left axis deviation Low voltage QRS Nonspecific ST and T wave abnormality Abnormal ECG Confirmed by EMILY WOLFE, HANNAH ([id number]), news editor LELE GUSTAFSON ([id number]) on 07/07/2024 1:51:27 PM Referred By: Confirmed By:HANNAH DIAZ MD
--- NOTE | 2024-07-06 18:44 | EX.ED.DYSGE1 ---
HPI History of Present Illness Chief Complaint: Palpitations Detail of Chief Complaint: Near syncope and palpitations Informant: patient Narrative Narrative: Patient presents to the emergency department with complaint of feeling presyncopal. Patient states that she had sudden onset of feeling hot and felt like she was in a pass out. She went outside and came back in and continue to feel that way. She laid down for a time. She checked her pulse and she states that it was jumping all over the place. She is not sure how fast it was going. She does have history of paroxysmal A-fib. Patient on Eliquis. She did not pass out. Patient also tells me that she started getting a cold last week and tested positive for COVID 2 nights ago. She denies any chest pain. She denies significant shortness of breath. She is feeling improved on arrival in the emergency department. [facility] Medical History Left wrist sprain Contusion of left hand Avulsion of skin of left hand Carotid stenosis, left Essential hypertension Gastritis Paroxysmal atrial fibrillation (04/2020) Back pain Premature ventricular contractions Hypothyroidism Heart disease Right shoulder pain Hemorrhoids Edema Nonrheumatic mitral (valve) insufficiency Hyperlipidemia Paroxysmal atrial tachycardia Home Medications ?Medication ?Instructions ?Recorded ?Last Taken ?Type levothyroxine 50 mcg tablet 50 mcg PO DAILY thyroid 05/02/14 03/26/21 History multivitamin with folic acid 400 1 tab PO DAILY supplement 05/02/14 03/25/21 History mcg tablet atorvastatin 40 mg tablet 40 mg PO QHS #30 tabs 03/27/21 Unknown Rx Bifidobacterium infantis 4 mg 4 mg PO .COMPLEX 05/15/22 Unknown History capsule (Align) citalopram 10 mg tablet 5 mg PO QHS 10/02/23 Unknown History apixaban 5 mg tablet (Eliquis) See Rx Instructions .Route 12/29/23 Unknown Rx .COMPLEX #180 tabs metoprolol tartrate 25 mg tablet 12.5 mg (1/2 x 25 mg) PO BID #90 05/20/24 Unknown Rx tabs Allergy/AdvReac Type Severity Reaction Status Date / Time Penicillins Allergy Severe Hives Verified 04/05/24 11:33 adhesive Allergy Rash Verified 04/05/24 11:33 ampicillin Allergy Rash Verified 04/05/24 11:33 diltiazem HCl (From Cardizem) Allergy Hives Verified 04/05/24 11:33 morphine AdvReac hypotension Verified 04/05/24 11:33 Family History Father , at age 102 Hypertension Myocardial infarction Pacemaker Cardiac arrhythmia Mother , age 74 Alzheimer's dementia Brother Hypertension Pulmonary hypertension ALS (amyotrophic lateral sclerosis) Sister Hypertension Hyperlipidemia Pulmonary embolism Surgical History History of esophagogastroduodenoscopy (EGD) (09/26/20) History of colonoscopy (2013) History of hysterectomy History of appendectomy Social History Smoking Status: Never smoker alcohol intake: never ROS ROS ED Review of Systems ROS Unobtainable: other Constitutional Constitutional ED: Reports lethargy; Denies chills, fever(s), sweats or weight loss Eyes Eyes: Denies blurry vision, change in vision or diplopia ENT ENT ED: Denies rhinorrhea or sore throat Cardiovascular Cardiovascular: Reports palpitations and racing heartbeat; Denies chest pain or orthopnea Respiratory/Chest Respiratory/Chest: Reports cough; Denies dyspnea, dyspnea on exertion, orthopnea or sputum Gastrointestinal Gastrointestinal: Denies abdominal pain, diarrhea, nausea or vomiting Genitourinary Genitourinary ED: Denies dysuria, hematuria or urinary frequency Musculoskeletal Musculoskeletal: Denies arthralgias, back pain, myalgias or neck pain Integumentary Denies abscess, Abrasions or rash Neurologic Neurologic: Denies headache(s) or weakness Psychiatric Psychiatric: Denies anxiety, depression or suicidal thoughts Endocrine Endocrinology: Denies polydipsia, polyphagia or polyuria Hematologic/Lymphatic Hematologic/Lymphatic: Denies easy bleeding, easy bruising or lymphadenopathy Allergic/Immunologic Allergic/Immunologic ED: Denies mouth swelling, tongue swelling or urticaria EXAM Physical Exam Const Vital Signs: 07/06/24 18:28 07/06/24 18:44 07/06/24 19:27 Temperature 97.6 F L Temperature Source Temporal Pulse Rate 76 70 Pulse Rate [Lying] 66 Pulse Rate [Sitting (for 1 minute prior to obtaining)] 71 Pulse Rate [Standing (for 1 minute prior to obtaining)] 74 Respiratory Rate 17 16 Blood Pressure 155/85 H 137/82 H Blood Pressure [Lying] 137/73 H Blood Pressure [Sitting (for 1 minute prior to obtaining)] 143/73 H Blood Pressure [Standing (for 1 minute prior to obtaining)] 141/78 H Blood Pressure Mean 108 100 Blood Pressure Mean [Lying] 94 Blood Pressure Mean [Sitting (for 1 minute prior to obtaining)] 96 Blood Pressure Mean [Standing (for 1 minute prior to obtaining)] 99 Pulse Ox 92 97 Oxygen Delivery Method Room Air Room Air 07/06/24 20:00 07/06/24 21:00 Temperature Temperature Source Pulse Rate 75 73 Pulse Rate [Lying] Pulse Rate [Sitting (for 1 minute prior to obtaining)] Pulse Rate [Standing (for 1 minute prior to obtaining)] Respiratory Rate 18 17 Blood Pressure 141/78 H 144/76 H Blood Pressure [Lying] Blood Pressure [Sitting (for 1 minute prior to obtaining)] Blood Pressure [Standing (for 1 minute prior to obtaining)] Blood Pressure Mean 99 98 Blood Pressure Mean [Lying] Blood Pressure Mean [Sitting (for 1 minute prior to obtaining)] Blood Pressure Mean [Standing (for 1 minute prior to obtaining)] Pulse Ox 98 98 Oxygen Delivery Method Room Air Room Air Positive well nourished and well developed General Appearance ED: well developed and NAD HEENT Reports TM's clear and moist mucous membranes normocephalic and atraumatic; Negative for trauma or tenderness Tympanic Membrane ED: Yes TM's clear Eyes PERRL and EOMs intact bilaterally General Eye ED: Negative for pale conjunctiva or scleral icterus Neck no lymphadenopathy, supple and no JVD General: Negative for tenderness Chest Wall inspection of chest normal and palpation of chest normal Chest: Negative for tenderness Resp normal respiratory effort and clear to auscultation bilaterally Effort and Inspection: Negative for respiratory distress or pain with movement Auscultation: Negative for rhonchi, wheezes or diminished lung sounds Cardio regular rate, regular rhythm, S1 normal heart sound, S2 normal heart sound and no murmurs Peripheral Pulses: pulses 2+ throughout GI normal to inspection, nondistended, normoactive bowel sounds, soft to palpation, non-tender, non-distended and no masses Back/Spine no CVA tenderness and no thoracic nor lumbar tenderness Extremity normal to inspection General Extremety ED: Negative for edema General Extremity: Negative for edema Neuro oriented x3, CN's II-XII intact bilaterally, no sensory deficits noted and gait normal Sensorium / Orientation: awake, alert, oriented to person, oriented to place and oriented to time Motor Exam: strength 5/5 throughout and strength abnormal Psych mental status grossly normal Skin no rashes or lesions noted and no wounds MDM MDM MDM Narrative Medical decision making narrative: Patient presents with some palpitations and feeling presyncopal. She has history of paroxysmal A-fib. Patient also states that her house was very warm when she sat down because she had a windows open narrating everything. She did not actually pass out. IV line established on arrival. Patient placed in a phototypesetting equipment monitor. EKG obtained showed a sinus rhythm with rate of 73 bpm with PACs and nonspecific ST changes. CBC with differential showed white count 6.8 with hemoglobin 13 and platelet count of 165. Chemistries unremarkable. First troponin was normal at 9 and delta troponin normal at 13. Chest x-ray obtained was unremarkable. Patient had COVID flu and RSV testing and she was positive for COVID-19. Patient case discussed with cardiology. I do not feel she is having acute coronary syndrome. It is unclear if she had a vasovagal episode or an episode of paroxysmal A-fib. She is anticoagulated. She is rate controlled in the department. She clinically looks well. Will discharge to home. 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 Patient to return if persistent tachycardia, syncope, chest pain, or condition should worsen anyway Lab Data Attestation: I reviewed the patient's lab results. Labs: Laboratory Results - last 24 hr 07/06/24 07/06/24 18:40 21:15 WBC 6.8 RBC 4.50 Hgb 13.5 Hct 41.0 MCV 91.1 MCH 30.0 MCHC 32.9 RDW Std Deviation 44.9 H RDW Coeff of Geno 13.3 Plt Count 165 MPV 12.3 H Immature Gran % (Auto) 0.300 Neut % (Auto) 48.0 Lymph % (Auto) 36.8 [place] % (Auto) 10.8 H Eos % (Auto) 3.5 Baso % (Auto) 0.6 Absolute Neuts (auto) 3.3 Absolute Lymphs (auto) 2.50 Nucleated RBC % 0 Sodium 136 Potassium 4.1 Chloride 100 Carbon Dioxide 28.0 Anion Gap 8 BUN 21 H Creatinine 0.92 Est GFR (MDRD) Af Amer 75 Est GFR (MDRD) Non-Af 62 BUN/Creatinine Ratio 22.7 H Glucose 101 Calcium 9.6 Troponin I High Sens 9 13 Radiography Diagnostic Testing: Clinical Impression(s) from Imaging Studies Chest X-Ray 07/06/24 18:50 IMPRESSION: Degenerative changes, as described above. No demonstrated acute cardiopulmonary process. Electronically Signed: Souleymane Freedman MD at 20:25 EDT , EKG Initial EKG: Attestation: I personally reviewed and interpreted this EKG as follows: Comments: Sinus rhythm with rate of [address] changes and PACs Prior EKG tracings: available for review Prior: Unchanged Discharge Plan Triage Chief Complaint: Palpitations ED Provider: Tosha Quinones Dx/Rx/DC Orders Clinical Impression: Near syncope, Paroxysmal A-fib, Palpitations, COVID-19 Instructions: Coronavirus Disease 2019 (COVID-19): Caring for Yourself or Others, ED Palpitations, ED Near-Fainting, Uncertain Cause Prescriptions: No Action levothyroxine 50 MCG tablet 50 mcg PO DAILY multivitamin with folic acid 1 TABLET tablet 1 tab PO DAILY atorvastatin 40 mg tablet 40 mg PO QHS Qty: 30 0RF Align 4 mg capsule 4 mg PO .COMPLEX Rx Instructions: 4 mg orally 3 times per week; citalopram 10 mg tablet 5 mg PO QHS Patient Comments: TAKE 1 TABLET BY MOUTH DAILY IN THE EVENING Eliquis 5 mg tablet See Rx Instructions .ROUTE .COMPLEX Qty: 180 3RF Dose Instruction: TAKE 1 TABLET TWICE A DAY Rx Instructions: TAKE 1 TABLET TWICE A DAY metoprolol tartrate 25 mg tablet 12.5 mg PO BID Qty: 90 3RF Primary Care Provider: Naty Arce Referrals: Naty Arce DO [Primary Care Provider] - Print Language: Emirati Disposition Disposition: Home, Self Care
--- NOTE | 2024-07-06 18:50 | RAD_ITS ---
STUDY: X-RAY CHEST REASON FOR EXAM: Female, 79 years old. TACHYCARDIA TECHNIQUE: Single AP portable view of the chest. COMPARISON: April 09, 2020 FINDINGS: The lungs are clear and expanded. There is no demonstrated pleural abnormality. Normal size heart. Normal mediastinum and oleg. Normal visualized pulmonary arteries. Normal visualized aortic arch and descending thoracic aorta. There is demineralization of the osseous structures. There are diffuse degenerative changes of the visualized thoracic spine. Normal visualized ribs, clavicles, and shoulders. There is no demonstrated abnormality of the visualized soft tissue structures of the upper abdomen. RAD/Chest 1 View (Portable) IMPRESSION: Degenerative changes, as described above. No demonstrated acute cardiopulmonary process. Electronically Signed: Souleymane Freedman MD at 20:25 EDT ,
[2024-07-06 18:55] LABS: Absolute Neutrophil Count 3.3 X10^3/uL (2.0-7.7); Basophil# 0.04 X10^3/uL; Basophil% 0.6 % (0-1); Eosinophil# 0.24 X10^3/uL; Eosinophils% 3.5 % (0-5); Hemoglobin 13.5 g/dL (12.0-15.0); Lymphocyte % 36.8 % (19-41); Mean Corp Hgb Conc 32.9 g/dL (32-36); Mean Corpuscular Volume 91.1 fL (81-99); Mean Platelet Vol. 12.3 fl (6.2-12.0); Monocyte# 0.73 X10^3/uL; Monocyte% 10.8 % (0-10); NRBC Flagged by Analyzer 0 % (0-5); Neutrophil # 3.26 X10^3/uL (2.7-7.7); Platelet Count 165 K/mm3 (150-450); RBC Distribution Width CV 13.3 % (11.6-14.6); RBC Distribution Width SD 44.9 fl (35.1-43.9); White Blood Count 6.8 K/mm3 (4.4-11.0)
[2024-07-06] MEDS: Ondansetron 4 MG/2 ML Vial IV (18:58)
[2024-07-06] MEDS: 0.9% Normal Saline (1000mL) 1,000 ML 150 ML IV (18:58)
[2024-07-06 19:16] LABS: Anion Gap 8 (5-15); BUN 21 mg/dL (7-18); BUN/Creat Ratio 22.7 RATIO (10-20); Calcium,Total 9.6 mg/dL (8.5-10.1); Chloride 100 mmol/L (98-107); Creatinine, Serum 0.92 mg/dL (0.55-1.02); EST Glomerular Filtration Rate 62 mL/min (>60); Est Glom Filt Rate - Afr Amer 75 mL/min (>60); Glucose 101 mg/dL (74-106); Potassium 4.1 mmol/L (3.5-5.1); Sodium Level 136 mmol/L (136-145); Troponin-I HS 9 pg/mL (3.0-54.0)
[2024-07-06 21:43] LABS: Troponin-I HS 13 pg/mL (3.0-54.0)
== END 2024-07-06 22:09 | disposition home or self-care (01) ==
PROVIDERS: Emergency Provider Emergency Medicine; PCP Family Medicine; Visit Provider Emergency Medicine
DX: U07.1 COVID-19 (principal); I48.0 Paroxysmal atrial fibrillation; Z79.01 Long term (current) use of anticoagulants; I10 Essential (primary) hypertension; R00.2 Palpitations; E78.5 Hyperlipidemia, unspecified; R55 Syncope and collapse; E03.9 Hypothyroidism, unspecified
CPT/HCPCS: 71045; 80048; 84484; 85025; 87631; 93005; 96361; 96374; 99285; A4216; J2405

== ENCOUNTER → 2024-07-30 | Outpatient (CLI) | payer MEDICARE, OTHER, SELFPAY ==
[2024-07-30 10:08] LABS: Absolute Lymphocyte Count 2.03 X10^3/uL (0.83-4.51); Absolute Neutrophil Count 8.7 X10^3/uL (2.0-7.7); Basophil# 0.05 X10^3/uL; Basophil% 0.4 % (0-1); Eosinophil# 0.06 X10^3/uL; Eosinophils% 0.5 % (0-5); Hematocrit 39.6 % (37-47); Lymphocyte # 2.03 X10^3/ul (0.83-4.51); Mean Corp Hgb Conc 32.8 g/dL (32-36); Mean Corpuscular Hgb 31.1 pg (27.0-32.0); Mean Corpuscular Volume 94.7 fL (81-99); Monocyte# 1.04 X10^3/uL; Monocyte% 8.7 % (0-10); NRBC Flagged by Analyzer 0 % (0-5); Neutrophil # 8.73 X10^3/uL (2.7-7.7); Neutrophil % 72.9 % (47-70); Platelet Count 159 K/mm3 (150-450); RBC Distribution Width CV 14.6 % (11.6-14.6); Red Blood Count 4.18 M/mm3 (4.2-5.4)
[2024-07-30 10:42] LABS: AST(SGOT) 44 U/L (15-37); Alanine Aminotransfer ALT/SGPT 69 U/L (13-56); Albumin, Serum 3.8 g/dL (3.2-5.0); Alkaline Phosphatase 69 U/L (45-117); Anion Gap 5 (5-15); BUN 17 mg/dL (7-18); BUN/Creat Ratio 20.1 RATIO (10-20); Calcium,Total 9.6 mg/dL (8.5-10.1); Chloride 104 mmol/L (98-107); Cholesterol 148 mg/dL (200); Creatinine, Serum 0.84 mg/dL (0.55-1.02); EST Glomerular Filtration Rate 69 mL/min (>60); Est Glom Filt Rate - Afr Amer 83 mL/min (>60); Free T3 1.8 pg/mL (2.18-3.98); Globulin 3.9 g/dL (2.2-4.2); Glucose 90 mg/dL (74-106); High Density Lipoprotein 74 mg/dL; Potassium 4.4 mmol/L (3.5-5.1); Protein, Total 7.7 g/dL (6.4-8.2); Sodium Level 138 mmol/L (136-145); T4 Free Direct 1.09 ng/dL (0.76-1.46); Thyroid Stim Hormone (TSH) 0.681 uIU/mL (0.358-3.740); Triglycerides 107 mg/dL; Very Low Density Lipoprotein 21 mg/dL (5-40)
== END | disposition home or self-care (01) ==
LOC: LAB 09:28
PROVIDERS: PCP Family Medicine; Referring Provider Family Medicine; Visit Provider Family Medicine
DX: Z51.81 Encounter for therapeutic drug level monitoring (principal); E03.9 Hypothyroidism, unspecified; E78.5 Hyperlipidemia, unspecified
CPT/HCPCS: 36415; 80053; 80061; 84439; 84443; 84481; 85025

== ENCOUNTER → 2025-02-01 | Outpatient (CLI) | payer MEDICARE, OTHER, SELFPAY ==
--- NOTE | 2025-02-01 13:33 | BI_ITS ---
EXAM: SCRN MAMM (CAD)W/ROGELIO BILAT 02/01/2025 CLINICAL HISTORY: F, Age 79 y/o , SCREENING TECHNIQUE: Bilateral screening digital breast tomosynthesis with 2D and 3D images. Computer aided detection. COMPARISON: Prior exam(s) dated 01/29/2024, 01/26/2023. FINDINGS: TISSUE DENSITY: The breast tissue is composed of scattered area of fibroglandular density. Bilateral Breast Mammographic Findings: No significant masses, calcifications or other abnormalities are identified. BI/SCRN MAMM (CAD)W/ROGELIO BILAT IMPRESSION: Right Breast: BIRADS 1 NEGATIVE. Left Breast: BIRADS 1 NEGATIVE. OVERALL FINAL ASSESSMENT: BIRADS 1 NEGATIVE. RECOMMENDATION: Routine annual follow-up in 1 Year A letter with findings and recommendations will be mailed to the patient. Reading Location: [id number]
== END | disposition home or self-care (01) ==
LOC: OPBI 13:31
PROVIDERS: PCP Family Medicine; Referring Provider Family Medicine; Visit Provider Family Medicine
DX: Z12.31 Encounter for screening mammogram for malignant neoplasm of breast (principal)
CPT/HCPCS: 77063; 77067

== ENCOUNTER → 2025-08-04 | Outpatient (CLI) | payer MEDICARE, OTHER, SELFPAY ==
[2025-08-04 10:44] LABS: Hematocrit 40.1 % (37-47); Hemoglobin 13.2 g/dL (12.0-15.0); Immature Granulocytes Count 0.010 X10^3/uL (0.0-0.0); Mean Corp Hgb Conc 32.9 g/dL (32-36); Mean Corpuscular Volume 95.7 fL (81-99); Mean Platelet Vol. 13.4 fl (6.2-12.0); NRBC Flagged by Analyzer 0 % (0-5); Platelet Count 128 K/mm3 (150-450); RBC Distribution Width CV 13.9 % (11.6-14.6); RBC Distribution Width SD 49.2 fl (35.1-43.9); Red Blood Count 4.19 M/mm3 (4.2-5.4); White Blood Count 6.3 K/mm3 (4.4-11.0)
[2025-08-04 11:21] LABS: AST(SGOT) 63 U/L (<=31); Alanine Aminotransfer ALT/SGPT 59 U/L (<=34); Albumin, Serum 4.0 g/dL (3.4-4.8); Alkaline Phosphatase 66 U/L (35-104); Anion Gap 12 (5-15); BUN 16 mg/dL (4-19); BUN/Creat Ratio 19.1 RATIO (10-20); Calcium,Total 9.3 mg/dL (7.6-11.0); Carbon Dioxide 25.5 mmol/L (21.0-32.0); Chloride 102 mmol/L (98-108); Cholesterol 125 mg/dL (<=200); Ferritin 317 ng/mL (22-378); Free T3 2.6 pg/mL (2.18-3.98); Globulin 2.9 g/dL (2.2-4.2); Glucose 86 mg/dL (70-99); Low Density Lipoprotein Calc. 50 mg/dL; Potassium 4.3 mmol/L (3.3-5.1); Triglycerides 87 mg/dL; Very Low Density Lipoprotein 17 mg/dL (5-40); Vitamin B12 685 pg/mL (180-914); Vitamin D,25 Hydroxy 38.9 ng/mL (30-100); cholesterol:hdl ratio screen 2.19
[2025-08-04 11:38] LABS: Iron 75 ug/dL (50-170)
== END | disposition home or self-care (01) ==
LOC: MTLAB 08:31
PROVIDERS: PCP Family Medicine; Referring Provider Family Medicine; Visit Provider Family Medicine
DX: E03.9 Hypothyroidism, unspecified (principal); E78.5 Hyperlipidemia, unspecified; Z51.81 Encounter for therapeutic drug level monitoring; E61.1 Iron deficiency; E55.9 Vitamin D deficiency, unspecified
CPT/HCPCS: 36415; 80053; 80061; 82306; 82607; 82728; 83540; 84439; 84443; 84481; 85025

== ENCOUNTER → 2025-08-21 | Outpatient (CLI) | payer MEDICARE, OTHER, SELFPAY ==
--- NOTE | 2025-08-21 11:17 | US_ITS ---
PROCEDURE: EXT NON VASC LIMITED/SOFT TISS 08/21/2025 REASON FOR EXAM: SWELLING, MASS AND LUMP OF LEFT UPPER ARM TECHNIQUE: Procedure Code: [id number] Modality: US Procedure: EXT NON VASC LIMITED/SOFT TISS COMPARISON: None FINDINGS: Sonographic interrogation of the left medial arm over the area of concern demonstrates a well-circumscribed echogenic lesion measuring 1.8 x 1.6 x 0.5 cm concerning for lipoma. US/Ext Non Vasc Limited/Soft Tiss IMPRESSION: Possible 1.8 x 1.6 cm lipoma in the area of swelling in the left medial arm. Reading Location: [id number]
== END | disposition home or self-care (01) ==
LOC: US 11:10
PROVIDERS: PCP Family Medicine; Referring Provider Nurse Practitioner Family; Visit Provider Nurse Practitioner Family
DX: R22.32 Localized swelling, mass and lump, left upper limb (principal)
CPT/HCPCS: 76882